=== PATIENT | male | born 1965 | race Caucasian/White ===

== ENCOUNTER 2017-02-21 12:28 | Inpatient (IN) | payer MEDICAID ==
[~2017-02-21] VITALS: Ht 182.9 cm; Wt 89.8 kg
--- NOTE | 2017-02-21 12:45 | NUR ---
IV ACCESS STARTED, BLOOD DRAWN FOR LABS. PT'S FRIENDS AT BS.
--- NOTE | 2017-02-21 12:52 | NUR ---
EKG IN PROGRESS
[2017-02-21 13:00] LABS: BASOPHILS # (AUTO) 0.1 /CMM (0.0-0.2); BASOPHILS % (AUTO) 0.8 % (0.0-2.0); EOSINOPHILS % (AUTO) 0.3 % (0.0-6.0); HEMATOCRIT 44 % (39-51); HEMOGLOBIN 14.6 g/dL (13.5-17.5); LYMPHOCYTES # (AUTO) 0.8 /CMM (0.8-4.8); LYMPHOCYTES % (AUTO) 10.4 % (20.0-44.0); MEAN CORPUSCULAR HEMOGLOBIN 32 PG (26.0-33.0); MEAN CORPUSCULAR HGB CONC 33 g/dl (31.0-36.0); MEAN CORPUSCULAR VOLUME 97 fL (80-96); MONOCYTES # (AUTO) 0.6 /CMM (0.1-1.30); MONOCYTES % (AUTO) 7.2 % (2.0-12.0); NEUTROPHILS # (AUTO) 6.3 /CMM (1.8-8.9); NEUTROPHILS % (AUTO) 81.3 % (43.0-81.0); PLATELET COUNT (AUTO) 184 /CMM (150-450); RDW COEFFICIENT OF VARIATION 13.7 (11.5-15.0); RED BLOOD CELL COUNT(AUTO) 4.53 MIL/uL (4.5-6.0); WHITE BLOOD COUNT (AUTO) 7.8 K/uL (4.3-11.0)
[2017-02-21] MEDS ORDERED: LORAZEPAM INJ 2 MG/ML VIAL IV ONE (13:00)
[2017-02-21] MEDS ORDERED: IV NS 0.9% 1,000 ML BAG IV ONE ×2 (13:00→15:00)
[2017-02-21] MEDS ORDERED: LORAZEPAM INJ 2 MG/ML VIAL ONE (13:04)
--- NOTE | 2017-02-21 13:04 | NUR ---
YOSSI RODRIGUEZ TO CT VIA SUZANNE
[2017-02-21 13:10] LABS: CALCIUM, SERUM 9.3 mg/dL (8.5-10.1); CARBON DIOXIDE 21 mmol/L (21-32); CHLORIDE 97 mmol/L (98-107); CREATININE 1.3 mg/dL (0.6-1.3); GLUCOSE 180 mg/dL (74-106); POTASSIUM 3.4 mmol/L (3.5-5.1); SODIUM SERUM 139 mmol/L (136-145); UREA NITROGEN, BLOOD 11 mg/dL (7-18)
[2017-02-21 13:16] LABS: ALBUMIN 3.8 g/dL (3.4-5.0); BILIRUBIN,DIRECT 1.4 mg/dL (0.0-0.2); BILIRUBIN,TOTAL 2.7 mg/dL (0.2-1.0)
[2017-02-21 13:19] LABS: TROPONIN I < 0.017 ng/mL (0.00-0.056)
[2017-02-21 13:23] LABS: D-DIMER 1.55 mg/L(FEU (0.17-0.50); INR 1.27 (0.87-1.13); PROTHROMBIN TIME 13.8 SECS (9.5-12.7)
[2017-02-21 13:26] LABS: INR 1.33 (0.87-1.13)
[2017-02-21 13:30] LABS: TOTAL PROTEIN, SERUM 9.3 g/dL (6.4-8.2)
[2017-02-21 13:41] LABS: BAND % (MANUAL) 3 % (0.0-5.0); LYMPHOCYTES % (MANUAL) 9 % (16-48); MONOCYTES % (MANUAL) 9 % (0-11.0); NEUTROPHILS % (MANUAL) 79 (42-76)
[2017-02-21] MEDS ORDERED: IV NS 0.9% 250 ML IV ONE (13:43)
[2017-02-21 13:52] LABS: ACETAMINOPHEN 0 ug/ml (10-30); ALCOHOL, BLOOD < 3 mg/dL (0-0); SALICYLATE < 0.2 mg/dL (2.8-20.0)
--- NOTE | 2017-02-21 14:14 | NUR ---
CALLED NURSING SUP. FOR TELE BED
--- NOTE | 2017-02-21 14:49 | NUR ---
KAUSHAL PAGED, FELISA GAMA FINANCIAL INSTITUTION PRESIDENT
[2017-02-21] MEDS ORDERED: CEFTRIAXONE 1GM BAG (ER ONLY) 1 GM/50 ML PIGGYBACK IV ONE (15:00)
[2017-02-21] MEDS ORDERED: LEVOFLOXACIN 750 MG /D5W 150ML PIGGYBACK IV ONE (15:00)
[2017-02-21] MEDS ORDERED: CEFTRIAXONE 1GM BAG (ER ONLY) 0 ML IV ONE (15:03)
[2017-02-21] MEDS ORDERED: LEVOFLOXACIN 750 MG /D5W 150ML 0 ML IV ONE (15:03)
[2017-02-21] MEDS ORDERED: LEVOFLOXACIN 750 MG /D5W 150ML 150 ML IV ONE (15:05)
[2017-02-21] MEDS ORDERED: CEFTRIAXONE 1GM BAG (ER ONLY) 50 ML IV ONE (15:05)
--- NOTE | 2017-02-21 15:31 | NUR ---
PANEL ON-CALL PAGED AGAIN
--- NOTE | 2017-02-21 15:55 | NUR ---
REPORT GIVEN [facility] [place] FOR TELE [phone]
[2017-02-21] MEDS ORDERED: SILVER SULFADIAZINE CREAM 25 GM TUBE ONE (16:03)
--- NOTE | 2017-02-21 16:10 | NUR ---
COLLEGE ADVISOR OPENING NOTES RECEIVED PT. FROM ER NURSE IN STABLE CONDITION. PT. IS A/O X4. PT. PRESENTS WITH MINOR TREMORS FROM POSSIBLY ALCOHOL WITHDRAWAL. PT. REPORTS HAVING A SYNCOPAL EPISODE BY A SHOPPING CENTER AFTER BINGE DRINKING THE DAY BEFORE. NO SOB OR SIGNS OF DISTRESS NOTED. BREATHING IS EVEN AND UNLABORED. TELE LEADS PLACED ON PT. PT. IS SINUS TACH ON MONITOR WITH A HR OF 118. BELONGINGS REVIEWED WITH PT. AND FORM SIGNED BY PT. IV PRESENT ON RIGHT AC 18 G PATENT AND INTACT. WILL BEGIN ADMISSION PROCESS AND AWAIT FURTHER ORDERS FROM JORDAN FELTON.
--- NOTE | 2017-02-21 16:18 | NUR ---
CALL FROM LAB. LACTIC ACID 5.0, RESULT RELAYED TO FLORENCIA RN, RN INCHARGE AND CARING FOR PATIENT
--- NOTE | 2017-02-21 16:25 | NUR ---
INTENSIVE CARE UNIT REGISTERED NURSE NOTES DR. GAMA NOTIFIED OF ELEVATED LACTIC ACID OF 5. PER DR. GAMA "ORDER A ONE TIME DOSE OF 1L NS BOLUS" WILL CARRY OUT ORDER AND CONTINUE TO CLOSELY MONITOR PT.
[2017-02-21] MEDS ORDERED: SILVER SULFADIAZINE CREAM 25 GM TUBE TP ONE (16:30)
[2017-02-21] MEDS ORDERED: TDAP [DIPH/PERTUSSIS/TET] 0.5 ML VIAL IM ONE ×2 (16:30→18:11)
[2017-02-21] MEDS ORDERED: IV NS 0.9% 1,000 ML IV ONE (17:30)
--- NOTE | 2017-02-21 18:53 | NUR ---
TERRITORY SUPERVISOR CLOSING NOTES PT. REMAINS IN STABLE CONDITION SINCE ADMISSION. PT. DENIES ANY PAIN AT THIS TIME. ALL ORDERS WERE CARRIED OUT ACCORDINGLY. ALL PT. NEEDS ANTICIPATED FOR AND MET. BED IN LOW LOCKED POSITION, SIDE RAILS UP X2, CALL LIGHT WITHIN REACH. WILL ENDORSE TO NIGHTSHIFT NURSE FOR YAS
[2017-02-21] MEDS ORDERED: ZOLPIDEM TARTRATE 5 MG TABLET PO PRN (19:00)
[2017-02-21] MEDS ORDERED: LORAZEPAM INJ 2 MG/ML VIAL IV PRN ×2 (19:00→21:00)
[2017-02-21] MEDS ORDERED: Thiamine 100 MG in IV D5W 50 ML IV ONE (19:00)
[2017-02-21] MEDS ORDERED: ONDANSETRON HCL/PF 4 MG/2 ML VIAL IVP PRN (19:00)
[2017-02-21] MEDS ORDERED: POTASSIUM CHLORIDE 20 MEQ TAB.PRT.SR PO ONE (19:30)
--- NOTE | 2017-02-21 19:30 | NUR ---
RN NOTES: RECEIVED AWAKE ON BED LYING COMFORTBLY, NO SOB NOTED, SURROUNDED BY RELATIVES, PER ENDORSEMENT PATIENT HAS A HIGH BP170/113,RN IS AWAITING FOR THE RETURN CALL OF DR. ROBERTO.PATIENT IS A/O X4,ABLE TO MAKE NEEDS KNOWN,ON TELE MONITORING RATE-103 SINUS TACHYCARDIA, KEPT ON CLOSE WATCH.CALL LIGHT WITHIN REACH.
--- NOTE | 2017-02-21 19:35 | NUR ---
RN NOTES: PER ENDORSEMENT OF AM-RN, DR. ROBERTO CALLED BACK AND ORDERED TO GIVE K-DUR FOR POTASSIUM REPLACEMENT RESULT K-3.4, AND GIVE ATIVAN Q2H PRN.TO BE GIVEN.
[2017-02-21 20:00] VITALS: BP 135/92
[2017-02-21] MEDS: LORAZEPAM INJ 2 MG/ML VIAL IV PRN ×2 (20:36→23:27)
--- NOTE | 2017-02-21 21:50 | NUR ---
RN NOTES: PATIENT TRIED TO GET UP FROM HIS BED TO USE URINAL, ACCIDENTALLY HIS IV CANNULA WAS PULLED OUT, MINIMAL BLEEDING NOTED, PRESSURE DRESSING APPLIED,EXPLAINED TO PATIENT AND HE AGREED FOR REINSERTION, NEW CANNULA INSERTED ON THE RIGHT HAND G#22.KEPT ON CLOSE WATCH.
--- NOTE | 2017-02-21 23:30 | NUR ---
RN NOTES: PATIENT LOOKS ANXIOUS, TREMORS NOTED AND HE IS SHAKING,HR-112, BP-145/96, ATIVAN 2MG PRN GIVEN,KEPTON CLOSE WATCH,IVF CONTINUED.
[2017-02-22] VITALS (66 sets, daily range): BP systolic 72–143; BP diastolic 53–93
--- NOTE | 2017-02-22 02:18 | NUR ---
RN NOTES: 2PM RECEIVED CALL FROM LAB(SPOKE WITH CHUY) TROPONIN IS HIGH,PAGE IRRIGATOR GRAVITY FLOW, AWAITING FOR THE RETURN CALL.PATIENT IS TAKING A NAP, NO CHECTS PAIN, NO SIGN OF RESPIRATORY DISTRESS NOTED, KEPT ON CLOSE WATCH.BP-143/93.
--- NOTE | 2017-02-22 02:56 | NUR ---
RN NOTES: MINT MACHINE OPERATOR(MAUREEN) ORDERED TO DO STAT EKG.RT NOTIFIED.PATIENT ASSISTED TO PEE IN THE URINAL, NO COMPLAINTS OF CHEST PAIN OR ANY DISCOMFORT,KEPT MONITORED.
[2017-02-22] MEDS: IV NS 0.9% 1,000 ML IV PRN ×2 (03:02→16:33)
--- NOTE | 2017-02-22 03:14 | NUR ---
RN NOTES: STAT EKG DONE BY RT, RESULT RELAYED TO HANDICAPPER HARNESS RACING,NO NEW ORDER, JUST DO BLOOD TEST IN THE MORNING.KEPT MONITORED.
[2017-02-22] MEDS: LORAZEPAM INJ 2 MG/ML VIAL IV PRN ×3 (03:59→14:33)
--- NOTE | 2017-02-22 04:11 | NUR ---
RN NOTES: PATIENT IS RESTLESS AND ANXIOUS,HE IS AWAKE AGAIN,TREMOR NOTED,SINUS TACHYCARDIA RATE-118, ATIVAN PRN GIVEN,SEIZURE AND FALL PRECAUTION OBSERVE,REMIND TO USE CALL LIGHT ALL THE TIME.
--- NOTE | 2017-02-22 05:00 | NUR ---
RN NOTES; ABLE TO REST AND SLEEP AT SHORT INTERVAL,KEPT ON CLOSE WATCH, ASSISTED WHEN HE PEE TO THE URINAL,FALL PRECAUTION OBSERVED.
--- NOTE | 2017-02-22 06:25 | NUR ---
RN NOTES: 0600-- PT WET THE BED, VOIDED, CLEANED THE PT, AND ASSITED TO SIT IN THE CHAIR, WHILE MANAGER EMPLOYEE BENEFITS AND RN CHANGING THE BED 0610---REINSERTED AN IV IV ACCESS GOT DISLODGE, 2CNA JL AND IMMACULATE AND PRIMARY RN IN THE ROOM 0620-- SUPPOSED TO GIVE ATIVAN FOR PT'S AGITATION AND RESTLESSNESS, MEDICATION ALREADY SCANNED AND PREPARED, BUT PRIOR TO ADMINISTERING THE MED PT C/O HE'S SHORT OF BREATH, SO RN DECIDED NOT TO GIVE THE SAID MEDICATION 0623--- NOTED PT TO HAVE SIGNS OF SOB, SINUS TACHY 140 0625--- PT UNABLE TO BREATH, NOTED TO BE CYANOTIC, VS TAKEN BUT UNABLE TO GET OXYGEN SATURATION, BP 150/58 98.0 IN 56 RR 7, PLACED ON NON REBREATHER MASK, BUSINESS DEVELOPMENT COORDINATOR WAS CALLED IMMEDIATELY 06--- PT ON SINUS TACH HR 141 BP 155/102 0630---NO PULSE NOTED, UNABLE TO BREATH, CODE BLUE WAS CALLED, CPR STARTED BAG THE PT, UNABLE TO GET VS 0635--BLOOD SUGAR WAS CHECKED REVEAL 124, 0640--CODE BLUE TEAM ARRIVED, RN SUP ARRIVED, STILL UNABLE TO GET VS, KELP OR [place] GATHERER DR. BELEN GUTIERREZ 0645--- UNABLE TO DETERMINE HR, CURRENTLY ON PEA RHYTHM, FIRST EPINEPHRINE 1:10,000 GIVEN BY TIRE SETTER ED THRU RIGHT FA IV ACCESS PERIPHERAL LINE 0647--- HR UNDETERMINED, RHYTHM UNABLE TO DETERMINE, UNABLE TO GET VS, SECOND EPINEPHRINE GIVEN BY TIRE SETTER ED THRU RFA IV ACCESS 0648-- ET TUBE INSERTION 0649--MD ORDERED STAT EKG DUE TO PT'S RHYTHM, MD ORDERED TO GIVE 3RD EPINEPHRINE, IV EPINEPHRINE GIVEN BY TIRE SETTER ED, ALSO RESULT OF EKG SHOWS POSSIBLE ANTEROSEPTAL INFARCT, SINUS TACHYCARDIA WITH PREMATURE ATRIAL COMPLEXES, LEFT AXIS DEVIATION 0655-- SENA TOWNSEND PT'S ATTENDING MD TALKING TO ER DR GLOVER, RELAYING PT'S CONDITION, PER KRISTIAN SHETTY TO START HEPARIN INFUSION IN ICU 0700--PT TRANSFERRED TO ICU VIA ACLS PROTOCOL, PRIMARY RN AND CHART EVEN PT'S BELONGING WAS BROUGHT TO ICU UPON TRANSFER, AT THE SAME TIME MEDICAL MANAGEMENT SPECIALIST ADELFO NOTIFIED FAMILY MEMBER, PT'S LEYLA JAMA REGARDING INCIDENT AND CURRENT CONDITION OF THE PT. 704-- ALREADY PLACED IN ROOM 261, HAVE TO WAIT FOR RN TO RECEIVE THE REPORT ENDORSEMENT GIVEN TO TIRE SETTER MOHAN AT 0750AM,ALSO ENDORSED REGARDING HEPARIN INFUSION PER MD, ALSO BELONGINGS ENDORSE TO RN, INCLUDING CP, CREDIT CARD AND EYEGLASS. 0930--CODE BLUE CRITIQUE FORM AND EKG RESULT COPY WAS PLACED ON PT'S CHART ALL ATTENDEES TO CODE TEAM ARE FOLLOW: DR BELEN CABRERA MD, TIRE SETTER ARNOLDO ALVAREZ, LEAD RT BRINDA MILIAN, RT EFREN SWENSON, ADE CASTELLON RT, ADELFO ROBERTO RT, SEBASTIAN LEUNG RT, ASHLI Hammond-EMT, BRADY BARRIOS NURSING SUP, MEDICAL MANAGEMENT SPECIALIST ADELFO MARTINEZ, PRIMARY RN MARA LAU, RN 3WEST PAUL MONTESINOS, RN TRUONG VINCENT, RN DAO TILLMAN, JONA EUCEDA, OSIEL PARIKH AND OSIEL ORR
--- NOTE | 2017-02-22 06:30 | NUR ---
RN NOTES REGARDING ATIVAN: ATIVAN NOT ADMINISTERED TO THE PT BECAUSE OF C/O SOB, HOWEVER MEDICATION ALREADY PREPARED IN THE SYRING[place], RELAYED TO CIRCULAR SAW OPERATOR ADELFO, MEDICATION WILL BE WASTED WITH ANOTHER RN WITNESS
[2017-02-22 06:48] LABS: BASOPHILS % (AUTO) 0.3 % (0.0-2.0); EOSINOPHILS % (AUTO) 0.3 % (0.0-6.0); HEMATOCRIT 43 % (39-51); HEMOGLOBIN 15.1 g/dL (13.5-17.5); LYMPHOCYTES # (AUTO) 0.9 /CMM (0.8-4.8); MEAN CORPUSCULAR HEMOGLOBIN 34 PG (26.0-33.0); MEAN CORPUSCULAR HGB CONC 35 g/dl (31.0-36.0); MEAN CORPUSCULAR VOLUME 97 fL (80-96); MONOCYTES # (AUTO) 0.7 /CMM (0.1-1.30); MONOCYTES % (AUTO) 8.4 % (2.0-12.0); NEUTROPHILS # (AUTO) 7.1 /CMM (1.8-8.9); PLATELET COUNT (AUTO) 152 /CMM (150-450); RDW COEFFICIENT OF VARIATION 14.1 (11.5-15.0); RED BLOOD CELL COUNT(AUTO) 4.45 MIL/uL (4.5-6.0); WHITE BLOOD COUNT (AUTO) 8.8 K/uL (4.3-11.0)
[2017-02-22 07:08] LABS: ALBUMIN 3.6 g/dL (3.4-5.0); BILIRUBIN,TOTAL 2.4 mg/dL (0.2-1.0); CREATININE 0.9 mg/dL (0.6-1.3); POTASSIUM 3.4 mmol/L (3.5-5.1); TOTAL PROTEIN, SERUM 9.3 g/dL (6.4-8.2)
[2017-02-22 07:17] LABS: THYROID STIMULATING HORMONE 3.161 uIU/mL (0.358-3.74)
[2017-02-22] MEDS ORDERED: PANTOPRAZOLE 40 MG TABLET.DR PO SCH ×2 (07:30→10:19)
--- NOTE | 2017-02-22 07:30 | NUR ---
PT RECEIVED ORALLY INTUBATED WITH 7.5 ET-TUBE SECURED AT 24CM. B/S EQUAL AT THIS TIME. SETTINGS ORDERED. ALARM SET AND AUDIBLE. ABG DONE. SMALL PALE YELLOW SPUTUM. AMBUBAG AT HEAD OF BED
--- NOTE | 2017-02-22 07:40 | NUR ---
ICU/RN PT TRANSFER FROM TELE UNIT.S/P CODE BLUE.PT IS INTUBATED. DIPRIVAN STARTED ORDERED.NEW IV ON LEFT IJ KANNAN 18 STARTED.F/C INSERTED ORDERED.PT HAS MINIMAL AMOUNT OF ANDRE URINE.ABDOMEN DISTENDED,BOWEL SOUNDS PRESENTS.OG TUBE INSERTED.HR SINUS TACHYCARDIA 166 BPM.SAT O2-95% ON 100% FIO2.REACTIVE ON PAIN STIMULATION.GAG AND COUGH REFLEXES PRESENT.T-101.TROPONIN LEVEL-3.378.
[2017-02-22 07:49] LABS: MAGNESIUM 1.2 mg/dL (1.8-2.4)
[2017-02-22] MEDS: Magnesium 1GM/D5W 100ML PREMIX 100 ML IV SCH ×3 (08:29→11:02)
[2017-02-22] MEDS: MULTIVITAMINS,THERAGRAN 1 UDTAB TABLET PO SCH (08:30)
[2017-02-22] MEDS ORDERED: ASPIRIN 325 MG TABLET PO ONE (08:30)
[2017-02-22] MEDS: FOLIC ACID 1 MG TABLET PO SCH (08:30)
[2017-02-22] MEDS ORDERED: IV NS 0.9% 500 ML IV ONE (08:30)
[2017-02-22] MEDS: PROPOFOL 100 ML IV PRN ×5 (08:31→22:08)
[2017-02-22] MEDS: ACETAMINOPHEN 325 MG TABLET PO PRN ×2 (08:42→16:33)
--- NOTE | 2017-02-22 08:45 | NUR ---
ICU/RN T-101.TYLENOL 2 TAB VIA OG TUBE GIVEN ORDERED.
[2017-02-22] MEDS ORDERED: THIAMINE HCL 100 MG TABLET PO SCH (09:00)
[2017-02-22] MEDS ORDERED: HEPARIN SODIUM, PORCINE 5000 UNITS/1 ML VIAL IV ONE (10:00)
[2017-02-22] MEDS ORDERED: phenytoin SODIUM IV 1,500 MG in IV NS 0.9% 100 ML IV STA (10:09)
--- NOTE | 2017-02-22 10:30 | NUR ---
ICU/RN HEPARIN DRIP AT 1200 UNITS STARTED ORDERED.PICC LINE ON THE RIGHT UPPER ARM INSERTED ORDERED.LABS REVIEW.MG-1.2 4GM MGSO4 IV ORDERED,K-3.4 40 MEQ KCL VIA OG TUBE GIVEN.1500 ML OF BOLUS NS GIVEN ORDERED.CONTINUE MONITORING
[2017-02-22] MEDS: HEPARIN INFUSION/D5W 500 ML IV PRN (10:31)
[2017-02-22] MEDS ORDERED: POTASSIUM CHLORIDE 20 MEQ POWDER PACKET NG ONE (11:00)
[2017-02-22] MEDS ORDERED: IV NS 0.9% 1,000 ML BAG IV ONE (11:00)
[2017-02-22] MEDS: PHENYLEPHRINE 80 MG in IV D5W 250 ML IV PRN ×3 (11:32→22:25)
[2017-02-22] MEDS: PIPERACILLIN /TAZOBACTAM 3.375 G in IV D5W 50 ML IV SCH ×2 (12:13→17:49)
[2017-02-22] MEDS: Z GUARD REMEDY 2 OZ OINT TP PRN ×2 (12:29→16:33)
[2017-02-22 12:36] LABS: ABG BASE EXCESS -4.6 mmol/L; ABG OXYGEN SATURATION 84.6 % (92.0-98.5); ABG PCO2 28.6 mmHg (35.0-45.0); ABG PH 7.427 (7.350-7.450); ABG PO2 50.9 mmHg (75.0-100.0); AaDO2 633.5 mmHg; COHb 0.3 % (0.5-1.5); MetHb 0.6 % (0.0-1.5); O2Hb 83.8 % (94.0-97.0); PEEP,BG 8 cm H2O; SITE, ABG Right Radial; VT, ABG 600 mL
[2017-02-22] MEDS: PHENYTOIN SODIUM IV 50 MG/ML VIAL IV SCH ×2 (13:26→20:08)
[2017-02-22] MEDS ORDERED: Magnesium 1GM/D5W 100ML PREMIX 100 ML IV SCH (14:00)
--- NOTE | 2017-02-22 14:35 | NUR ---
ICU/RN PT IS DIAPHORETIC RR-33,HR-145 BPM.ATIVAN 2 MG IV GIVEN ORDERED.
--- NOTE | 2017-02-22 16:35 | NUR ---
ICU/RN PM CARE [PROVIDED.PT PLACED ON [facility] MATRASS.T-100.9.TYLENOL 2 TAB VOA OG TUBE GIVEN ORDERED.COOLING BLANKET ON.COOLING MEASURES PROVIDED.SUCTION PROVIDED.PT HAS MINIMAL URINE OUTPUT.MD NOTIFIED.FAMILY AT BEDSIDE.
[2017-02-22 17:35] LABS: CREATININE 1.7 mg/dL (0.6-1.3); MAGNESIUM 2.3 mg/dL (1.8-2.4); POTASSIUM 3.1 mmol/L (3.5-5.1)
--- NOTE | 2017-02-22 17:37 | NUR ---
ICU/RN PT IS SEDATED ON DIPRIVAN AT 45 MCG,ON NORSYNEPHRINE DRIP ,TEMPERATURE OVER 100 ,COOLING BLANKET ON , HIGH PEEP-12 ON THE VENT .PT IS FIO2-100%,SAT O2-91% .
--- NOTE | 2017-02-22 17:47 | NUR ---
ICU/RN CRITICAL BS -415 FROM LAB ,TROPONIN -4.563.ACCU CHECK FROM THE FINGER DONE.BS-128.CHARGE NURSE NOTIFIED.LAB NOTIFIED.
[2017-02-22] MEDS ORDERED: NOREPINEPHRINE 16 MG in IV D5W 500 ML IV PRN (18:30)
[2017-02-22 18:35] LABS: CALCIUM, SERUM 8.2 mg/dL (8.5-10.1); CREATININE 1.5 mg/dL (0.6-1.3); MAGNESIUM 2.4 mg/dL (1.8-2.4); PHOSPHORUS 4.2 mg/dL (2.5-4.9); POTASSIUM 3.6 mmol/L (3.5-5.1); TOTAL PROTEIN, SERUM 8.3 g/dL (6.4-8.2)
--- NOTE | 2017-02-22 19:00 | NUR ---
SPEECH LANGUAGE PATHOLOGIST TRAVEL: RECEIVED ORALLY INTUBATED PT. WT 100% FI02 AT 02 SAT BASELINE IN THE HIGH 80s PER DAY SHIFT REPORT. SEDATED ON PROPOFOL AT 45MCG/KG/MIN AND WITHDRAWS TO LOCALIZED PAIN. SR ON SCRAP PICKER. TEMP=99.5, COOLING BLANKET IN PLACE. PTT=62, WILL CONTINUE SAME HEPARIN DRIP AT 1200 U/HR AND RECHECK PTT IN AM PER PROTOCOL. ON NS AT 75ML/HR, , NEOSYNEPHRINE DRIP AT 200MCG/MIN. F/C PATENT AND INTACT DRAINING ANDRE COLORED URINE. SAFETY PRECAUTION NOTED. WILL CONTINUE TO MONITOR.
[2017-02-23] VITALS (103 sets, daily range): BP systolic 85–135; BP diastolic 36–94
[2017-02-23] MEDS: PIPERACILLIN /TAZOBACTAM 3.375 G in IV D5W 50 ML IV SCH ×5 (00:25→23:30)
[2017-02-23] MEDS: IV NS 0.9% 1,000 ML IV PRN (00:26)
[2017-02-23] MEDS: LORAZEPAM INJ 2 MG/ML VIAL IV PRN ×3 (01:01→21:30)
--- NOTE | 2017-02-23 01:15 | NUR ---
CIRCUS LABORER: PT. 02 SAT IN THE 60s FOR PAST 15 MINUTES. HR ELEVATED IN 90s TO LOW 100s WELL RESPIRATION RATE. STILL AT 100% 02. HEAD LOWERED AND REPOSITIONED FOR COMFORT. ATIVAN GIVEN. WILL CONTINUE TO MONITOR.
--- NOTE | 2017-02-23 01:24 | NUR ---
PROMOTIONS MANAGER: 02 SAT BACK IN THE HIGH 70s to 80s AT THIS TIME. WILL CONTINUE TO MONITOR.
[2017-02-23] MEDS: PROPOFOL 100 ML IV PRN ×5 (01:36→23:18)
--- NOTE | 2017-02-23 01:45 | NUR ---
DOWELER: REASSESSMENT FOR ATIVAN WT GOOD EFFECT M/B VS BACK TO PT's BASELINE. HR=77, O2 SAT=91%, HR 21, UF=513/85. STILL ON DIPRIVAN AT 45MCG/KG/MIN, MITCH. DRIP AT 220MCG/MIN AND NS AT 75ML/HR WT URINE OUTPUT IMPROVING COMPARED FROM DAY SHIFT. WILL CONTINUE TO MONITOR.
[2017-02-23 05:05] LABS: BASOPHILS % (AUTO) 0.4 % (0.0-2.0); EOSINOPHILS # (AUTO) 0.1 /CMM (0.0-0.7); EOSINOPHILS % (AUTO) 0.7 % (0.0-6.0); HEMATOCRIT 42 % (39-51); HEMOGLOBIN 14.2 g/dL (13.5-17.5); LYMPHOCYTES # (AUTO) 1.5 /CMM (0.8-4.8); LYMPHOCYTES % (AUTO) 12.9 % (20.0-44.0); MEAN CORPUSCULAR HEMOGLOBIN 33 PG (26.0-33.0); MEAN CORPUSCULAR HGB CONC 34 g/dl (31.0-36.0); MEAN CORPUSCULAR VOLUME 99 fL (80-96); MONOCYTES # (AUTO) 1.1 /CMM (0.1-1.30); MONOCYTES % (AUTO) 9.8 % (2.0-12.0); NEUTROPHILS # (AUTO) 8.8 /CMM (1.8-8.9); NEUTROPHILS % (AUTO) 76.2 % (43.0-81.0); PLATELET COUNT (AUTO) 208 /CMM (150-450); RDW COEFFICIENT OF VARIATION 14.8 (11.5-15.0); RED BLOOD CELL COUNT(AUTO) 4.27 MIL/uL (4.5-6.0); WHITE BLOOD COUNT (AUTO) 11.6 K/uL (4.3-11.0)
[2017-02-23] MEDS: PHENYTOIN SODIUM IV 50 MG/ML VIAL IV SCH ×3 (05:15→20:56)
[2017-02-23] MEDS: PHENYLEPHRINE 80 MG in IV D5W 250 ML IV PRN ×2 (05:15→18:59)
[2017-02-23 05:27] LABS: ALBUMIN 2.6 g/dL (3.4-5.0); BILIRUBIN,TOTAL 1.9 mg/dL (0.2-1.0); CALCIUM, SERUM 7.9 mg/dL (8.5-10.1); CREATININE 1.4 mg/dL (0.6-1.3); MAGNESIUM 2.2 mg/dL (1.8-2.4); PHOSPHORUS 4.2 mg/dL (2.5-4.9); POTASSIUM 3.2 mmol/L (3.5-5.1); TOTAL PROTEIN, SERUM 7.9 g/dL (6.4-8.2)
[2017-02-23] MEDS: HEPARIN INFUSION/D5W 500 ML IV PRN (06:48)
--- NOTE | 2017-02-23 06:50 | NUR ---
METAL FURNITURE POLISHER: O2 SAT IN THE LOW 80s WT CURRENT VENT SETTINGS. AFEBRILE AT THIS TIME. CONTINUE HEPARIN DRIP AT 1200U/HR FOR PTT=49. WILL ENDORSE TO DAY SHIFT FOR CONTINUITY OF CARE.
--- NOTE | 2017-02-23 07:35 | NUR ---
BOLT CUTTER RECEIVED PATIENT FROM THE PREVIOUS SHIFT. PATIENT IS IN BED. RESTING COMFORTABLY AT THIS TIME. AFEBRILE. SINUS RHYTHM ON MONITOR. ON PRESSORS FOR BP SUPPORT. SEDATED ON DIPRIVAN. HEPARIN GTT RUNNING. JASSO DRAINING URINE TO GRAVITY. GENTLY TURNED AND REPOSITIONED FOR COMFORT AND WOUND PREVENTION. UNABLE TO ASSESS THE SACRAL SKIN AND BACK SKIN CONDITIONS BECAUSE PATIENT CANNOT BE TURNED FULLY DUE TO HEMODYNAMIC INSTABILITY. O2 SATURATION AT 85% AT THIS TIME. WILL CONTINUE TO MONITOR AND PROVIDE CARE.
--- NOTE | 2017-02-23 07:38 | NUR ---
RT PATIENT REC'D ORALLY INTUBATED ON [facility] VENT WITH SETTINGS SET BY MD RAMSEY MAO. VENT ALARMS CHECKED + AUDIBLE. VENT PLUGGED INTO RED OUTLET. PATIENT SUCTIONED WITH SMALL AMT OF PALE YELLOW SEMITHICK SECRETIONS. JEVON HERRERA B/S HEARD. TAMMY BAG AT HOB. Addendum: 02/23/17 at 0852 by PANCHO WEINSTEIN RT Amended: Links added.
[2017-02-23] MEDS ORDERED: EPINEPHRINE (1:10,000) SYRINGE 1 MG/10 ML DISP.SYRIN IVP ONE ×2 (08:10→12:47)
[2017-02-23 08:32] LABS: ABG BASE EXCESS -1.4 mmol/L; ABG OXYGEN SATURATION 88.2 % (92.0-98.5); ABG PCO2 32.1 mmHg (35.0-45.0); ABG PH 7.447 (7.350-7.450); ABG PO2 55.4 mmHg (75.0-100.0); AaDO2 625.5 mmHg; COHb 0.1 % (0.5-1.5); MetHb 0.6 % (0.0-1.5); O2Hb 87.6 % (94.0-97.0); PEEP,BG 12 cm H2O; SITE, ABG Right Radial; VT, ABG 600 mL
[2017-02-23] MEDS: MULTIVITAMINS,THERAGRAN 1 UDTAB TABLET PO SCH (09:36)
[2017-02-23] MEDS: ASPIRIN 325 MG TABLET PO SCH (09:36)
[2017-02-23] MEDS: FOLIC ACID 1 MG TABLET PO SCH (09:36)
[2017-02-23] MEDS: FAMOTIDINE/PF INJ 20 MG/2 ML VIAL IV SCH ×2 (09:36→20:56)
--- NOTE | 2017-02-23 09:40 | NUR ---
PROMOTION WRITER DURING SEDATION VACATION, RN DROPPED THE DIPRIVAN GTT TO 20 MCG/KG/MIN GRADUALLY FROM 50 MCG. AFTER ABOUT 25 MIN PATIENT NOTED TO TACHYEPNIC WITH BREATHING IN LARGER TIDAL VOLUMES. NASAL FLARING AND SOME FACIAL GRIMACING NOTED. NO PURPOSEFUL MOVEMENT NOTED. UNABLE TO FOLLOW COMMANDS AT THIS TIME. PATIENT WAS FULLY RESEATED FOR SAFETY.
[2017-02-23] MEDS: POTASSIUM CL. PREMIX PERIPHER. 50 ML IV SCH ×4 (10:36→14:39)
[2017-02-23] MEDS: ACETAMINOPHEN 325 MG TABLET PO PRN ×2 (11:47→22:22)
[2017-02-23] MEDS ORDERED: FEE PK DOSING 1 MIN EA MC ONE (11:47)
[2017-02-23] MEDS: VANCOMYCIN 1 GM in IV D5W 250 ML IV SCH (12:48)
--- NOTE | 2017-02-23 14:02 | NUR ---
CRYSTALLOGRAPHY TEACHER PATIENT'S TEMP 101.1. MANAGER OF HOSPITAL MADE AWARE. PER MD, NO COOLING BLANKET INDICATED AT THIS TIME. TYLENOL GIVEN. COOLING MEASURES STARTED.
[2017-02-23] MEDS ORDERED: IV NS 0.9% 1,000 ML IV PRN (15:20)
[2017-02-23] MEDS ORDERED: FUROSEMIDE 40 MG/4 ML VIAL IV ONE (15:30)
[2017-02-23] MEDS ORDERED: BUMETANIDE INJ 6 MG in IV NS 0.9% 36 ML IV ONE (20:00)
[2017-02-23] MEDS ORDERED: POTASSIUM CHLORIDE 20 MEQ POWDER PACKET GT ONE (20:00)
[2017-02-23] MEDS ORDERED: POTASSIUM CHLORIDE 20 MEQ POWDER PACKET ONE (21:16)
[2017-02-23] MEDS ORDERED: BUMETANIDE INJ 0.25 MG/ML VIAL ONE (21:46)
--- NOTE | 2017-02-23 21:51 | NUR ---
PT RECEIVED INTUBATED ON VENT. FAMILY AT BEDSIDE. NO RESP DISTRESS. TOLERATING VENT SETTINGS. SX'D FOR MOD AMT OF THICK/THIN TINGED SECRETIONS. VENT ALARMS SET AND AUDIBLE. ETT SECURED, CUFF SEED SPECIALIST. AMBU BAG [facility]. VENT PLUGGED INTO RED OUTLET. WILL CONTINUE TO MONITOR. Addendum: 02/23/17 at 2153 by ROMEO BOSS RT Amended: Links added.
[2017-02-24] VITALS (80 sets, daily range): BP systolic 87–139; BP diastolic 57–105
--- NOTE | 2017-02-24 | NUR ---
SPRAYER AUTOMATIC SPRAY MACHINE - REC'D PT. INTUBATED, SEDATED ON DIPRIVAN GTT. AT 45 MCG/KG/MIN. A SEDATION VACATION WAS DONE AT 21:00 WITH AT BS. PT. STARTED BUCKING THE VENT APPROX. A MIN. AFTER GTT. WAS SHUT OFF. DIPRIVAN WAS RESET AT 50 MCG/KG/MIN. REPOSITIONED DUE TO O2 SATS IN THE 70-80'S. PT. DESATS ON VENT W/FIO2 AT 100%. PT. IS ORALLY & TRACHEAL SX'D MAINOR - QUENTLY W/HEMOPTYSIS NOTED. THICK YELLOW SX'S NOTED ALSO. PT. HAS NEOSYNEPHRINE GTT. AT 150 MCG/MIN., DIPRIVAN, NS AT TKO, HEPARIN GTT. AT 1200 UNITS/HR & MULTIPLE IVPB'S. FELISA THORNTONCY DNP ORDERED BUMEX GTT. & KLOR/CON AT START OF SHIFT. OF NOW, PT. HAS URINATED OVER A LITER VIA JASSO CATH. OGT CLAMPED W/GOOD PLACEMENT. CVP IS HIGH AT 14-20. LINE IS ZEROED & CALIBRATED Q 4HRS/PRN. +ASCITES/VERY LARGE ABD. SACRAL BLISTERS/REDNESS. COOLING MEASURES PROVIDED DUE TO CONSTANT FEVER. RECTAL TEMP PROBE INTACT. GIVEN SYMPATHY & ALL QUESTIONS ANSWERED TO BEST OF ABILITY. CONT. POC.
[2017-02-24] MEDS: VANCOMYCIN 1 GM in IV D5W 250 ML IV SCH ×3 (01:09→23:43)
[2017-02-24] MEDS: PROPOFOL 100 ML IV PRN ×4 (02:32→21:31)
[2017-02-24] MEDS: PHENYLEPHRINE 80 MG in IV D5W 250 ML IV PRN ×3 (02:37→20:27)
[2017-02-24] MEDS: PHENYTOIN SODIUM IV 50 MG/ML VIAL IV SCH ×3 (04:35→20:30)
[2017-02-24 04:43] LABS: BASOPHILS % (AUTO) 0.2 % (0.0-2.0); EOSINOPHILS # (AUTO) 0.2 /CMM (0.0-0.7); EOSINOPHILS % (AUTO) 2.1 % (0.0-6.0); HEMATOCRIT 43 % (39-51); HEMOGLOBIN 14.5 g/dL (13.5-17.5); LYMPHOCYTES # (AUTO) 1.5 /CMM (0.8-4.8); LYMPHOCYTES % (AUTO) 15.5 % (20.0-44.0); MEAN CORPUSCULAR HEMOGLOBIN 33 PG (26.0-33.0); MEAN CORPUSCULAR HGB CONC 34 g/dl (31.0-36.0); MEAN CORPUSCULAR VOLUME 99 fL (80-96); MONOCYTES # (AUTO) 1.1 /CMM (0.1-1.30); MONOCYTES % (AUTO) 11.1 % (2.0-12.0); NEUTROPHILS # (AUTO) 7.1 /CMM (1.8-8.9); NEUTROPHILS % (AUTO) 71.1 % (43.0-81.0); PLATELET COUNT (AUTO) 203 /CMM (150-450); RDW COEFFICIENT OF VARIATION 15.1 (11.5-15.0); RED BLOOD CELL COUNT(AUTO) 4.36 MIL/uL (4.5-6.0)
[2017-02-24 04:54] LABS: CALCIUM, SERUM 7.7 mg/dL (8.5-10.1); CREATININE 1.3 mg/dL (0.6-1.3)
[2017-02-24 05:04] LABS: MAGNESIUM 1.4 mg/dL (1.8-2.4); PHOSPHORUS 3.6 mg/dL (2.5-4.9); POTASSIUM 3.5 mmol/L (3.5-5.1)
[2017-02-24] MEDS: HEPARIN INFUSION/D5W 500 ML IV PRN ×2 (05:06→17:31)
[2017-02-24] MEDS: PIPERACILLIN /TAZOBACTAM 3.375 G in IV D5W 50 ML IV SCH ×4 (05:07→23:05)
--- NOTE | 2017-02-24 07:30 | NUR ---
TYPEWRITER ASSEMBLY AND PARTS INSPECTOR RECEIVED PATIENT FROM THE PREVIOUS SHIFT. PATIENT IS IN BED. RESTING COMFORTABLY. NO ACUTE DISTRESS NOTED. EVEN AND NON LABORED BREATHING PATTERN. ORAL SUCTION AND ETT SUCTION PROVIDED. ORALLY INTUBATED. VENT SETTINGS REVIEWED AND VERIFIED. TURNED AND REPOSITIONED FOR COMFORT AND WOUND PREVENTION. WILL CONTINUE TO MONITOR AND PROVIDE CARE.
[2017-02-24] MEDS: ASPIRIN 325 MG TABLET PO SCH (09:00)
[2017-02-24] MEDS: MULTIVITAMINS,THERAGRAN 1 UDTAB TABLET PO SCH (09:00)
[2017-02-24] MEDS: FOLIC ACID 1 MG TABLET PO SCH (09:01)
[2017-02-24] MEDS: FAMOTIDINE/PF INJ 20 MG/2 ML VIAL IV SCH ×2 (09:01→20:30)
--- NOTE | 2017-02-24 09:40 | NUR ---
WOUND CARE CONSULT PATIENT SEEN AND SKIN INTEGRITY ASSESSMENT DONE. SEE NATIONAL ACCOUNT MANAGER ASSESSMENT IN PCS FOR ALL RECOMMENDATIONS. PATIENT NOTED TO HAVE MULTIPLE CO-MORBIDITIES AT THIS TIME AND AT THE TIME OF THIS SKIN BREAKDOWN. FURTHER SKIN BREAKDOWN MAY BE UNAVOIDABLE. PATIENT CONTINUES ON PRESSORS FOR BP SUPPORT, PATIENT WITH MULTI ORGAN FAILURE AND CITLALI AT 11. CONTINUE ALL SKIN MANAGMENT AND PREVENTION MEASURES PER CURRENT PLAN OF CARE. ALL DISCUSSED WITH NURSING STAFF AT THE BEDSIDE. Addendum: 02/24/17 at 0943 by LEONARD MONTIEL WNDNU Amended: Links added.
[2017-02-24] MEDS ORDERED: HYDROGEL DRESSING 90 GM TUBE TP PRN (10:00)
[2017-02-24] MEDS: HYDROGEL DRESSING 90 GM TUBE TP SCH (10:03)
[2017-02-24 10:51] LABS: ABG BASE EXCESS 4.2 mmol/L; ABG OXYGEN SATURATION 96.9 % (92.0-98.5); ABG PCO2 29.9 mmHg (35.0-45.0); ABG PH 7.552 (7.350-7.450); ABG PO2 89.2 mmHg (75.0-100.0); AaDO2 593.9 mmHg; COHb 0.1 % (0.5-1.5); MetHb 0.4 % (0.0-1.5); O2Hb 96.4 % (94.0-97.0); PEEP,BG 12 cm H2O; SITE, ABG Right Femoral; VT, ABG 600 mL
[2017-02-24] MEDS: Magnesium 1GM/D5W 100ML PREMIX 100 ML IV SCH ×4 (10:51→15:26)
[2017-02-24] MEDS ORDERED: POTASSIUM CHLORIDE 20 MEQ POWDER PACKET GT ONE ×2 (16:00→17:00)
[2017-02-24] MEDS: LACTOBACILLUS RHAMNOSUS GG 1 EACH CAP.SPRINK PO SCH (17:29)
[2017-02-24] MEDS: BUMETANIDE INJ 0.25 MG/ML VIAL IV SCH ×2 (17:29→23:05)
--- NOTE | 2017-02-24 19:00 | NUR ---
RN INITIAL NOTES RECEIVED PT SEDATED ON BED WITH DIPRIVAN @ 50MCG/KG/MIN. ON VENT, AC 18, TV 550, 65% FIO2, PEEP 12, ETT 02/10@LIP, SATURATING WELL, NO S/S OF RESP DISTRESS. CURRENTLY SR ON THE MONITOR, HR 70-80'S, ON MITCH DRIP @ 130MCG/MIN. CVP READING @ 9. OGT INTACT AND CLAMPED. JASSO CATH INTACT. LEFT EJ 18G, RIGHT WRIST 22G, AND RIGHT UPPER ARM PICC FLUSHED AND PATENT, NO S/S OF INFILTRATION/INFECTION, DRESSINGS CDI. BED LOW AND LOCKED, SIDERAILS UP. WILL MONITOR CLOSELY
[2017-02-24] MEDS: ACETAMINOPHEN 325 MG TABLET PO PRN (20:30)
[2017-02-25] VITALS (99 sets, daily range): BP systolic 53–130; BP diastolic 36–97
[2017-02-25] MEDS: PROPOFOL 100 ML IV PRN ×6 (00:42→23:01)
[2017-02-25 04:45] LABS: BASOPHILS % (AUTO) 0.2 % (0.0-2.0); EOSINOPHILS # (AUTO) 0.2 /CMM (0.0-0.7); EOSINOPHILS % (AUTO) 1.9 % (0.0-6.0); HEMATOCRIT 40 % (39-51); HEMOGLOBIN 13.7 g/dL (13.5-17.5); LYMPHOCYTES # (AUTO) 1.2 /CMM (0.8-4.8); LYMPHOCYTES % (AUTO) 13.4 % (20.0-44.0); MEAN CORPUSCULAR HEMOGLOBIN 34 PG (26.0-33.0); MEAN CORPUSCULAR HGB CONC 34 g/dl (31.0-36.0); MEAN CORPUSCULAR VOLUME 98 fL (80-96); MONOCYTES # (AUTO) 1.3 /CMM (0.1-1.30); MONOCYTES % (AUTO) 15.2 % (2.0-12.0); NEUTROPHILS % (AUTO) 69.3 % (43.0-81.0); PLATELET COUNT (AUTO) 193 /CMM (150-450); RDW COEFFICIENT OF VARIATION 15.2 (11.5-15.0); RED BLOOD CELL COUNT(AUTO) 4.09 MIL/uL (4.5-6.0); WHITE BLOOD COUNT (AUTO) 8.6 K/uL (4.3-11.0)
[2017-02-25 05:03] LABS: CALCIUM, SERUM 7.4 mg/dL (8.5-10.1); CREATININE 1.2 mg/dL (0.6-1.3); MAGNESIUM 1.5 mg/dL (1.8-2.4); PHOSPHORUS 3.5 mg/dL (2.5-4.9); POTASSIUM 3.1 mmol/L (3.5-5.1)
[2017-02-25] MEDS: PIPERACILLIN /TAZOBACTAM 3.375 G in IV D5W 50 ML IV SCH ×4 (05:06→23:10)
[2017-02-25] MEDS: PHENYTOIN SODIUM IV 50 MG/ML VIAL IV SCH ×3 (05:06→20:13)
[2017-02-25 05:44] LABS: BAND % (MANUAL) 2 % (0.0-5.0); EOSINOPHILS % (MANUAL) 2 % (0-4); LYMPHOCYTES % (MANUAL) 18 % (16-48); METAMYELOCYTES % 1 % (0-0); MONOCYTES % (MANUAL) 14 % (0-11.0); MYELOCYTES % 1 % (0-0); NEUTROPHILS % (MANUAL) 62 (42-76)
--- NOTE | 2017-02-25 06:30 | NUR ---
RN CLOSING NOTES PT REMAINS STABLE OF THE MOMENT. ALL DUE MEDS GIVEN, AM CARE PROVIDED. WILL ENDORSE YAS TO AM RN
--- NOTE | 2017-02-25 07:58 | NUR ---
RT PT RECEIVED ORALLY INTUBATED WITH A 7.0 ETT SECURED AT 23CM AT THE LIP LINE ON THE VENT. VENT ALARMS ARE SET AND AUDIBLE WITH BVM BY BEDSIDE. OB GYN PHYSICIAN ASSISTANT CUFF PRESSURE NOTED. VENT IS PLUGGED INTO RED OUTLET. NO RESPIRATORY DISTRESS NOTED AT THIS TIME, WILL CONTINUE TO MONITOR. Addendum: 02/25/17 at 1802 by SEBASTIAN LEUNG RT Amended: Links added.
--- NOTE | 2017-02-25 08:30 | NUR ---
SEDATION VACATION. PT OPENS EYES FOUSES, AND TRACKS. ABLE TO FOLLOW SEMPLE COMMANDS: SQUEEZE MY HAND AND LET GO.
[2017-02-25 08:44] LABS: ABG OXYGEN SATURATION 93.4 % (92.0-98.5); ABG PCO2 36.4 mmHg (35.0-45.0); ABG PH 7.505 (7.350-7.450); AaDO2 355.9 mmHg; COHb 0.4 % (0.5-1.5); MetHb 0.5 % (0.0-1.5); O2Hb 92.6 % (94.0-97.0); PEEP,BG 12 cm H2O; SITE, ABG Right Radial; VENT MODE, BG AC 18/28; VT, ABG 550 mL
[2017-02-25] MEDS: ASPIRIN 325 MG TABLET PO SCH (09:58)
[2017-02-25] MEDS: LACTOBACILLUS RHAMNOSUS GG 1 EACH CAP.SPRINK PO SCH ×2 (09:58→18:39)
[2017-02-25] MEDS: MULTIVITAMINS,THERAGRAN 1 UDTAB TABLET PO SCH (09:58)
[2017-02-25] MEDS: FAMOTIDINE/PF INJ 20 MG/2 ML VIAL IV SCH ×2 (09:58→20:13)
[2017-02-25] MEDS: FOLIC ACID 1 MG TABLET PO SCH (09:58)
[2017-02-25] MEDS: HYDROGEL DRESSING 90 GM TUBE TP SCH (09:59)
--- NOTE | 2017-02-25 10:00 | NUR ---
AT BEDSIDE. UPDATED ON PROGRESS.
[2017-02-25] MEDS: PHENYLEPHRINE 80 MG in IV D5W 250 ML IV PRN ×2 (11:18→18:46)
[2017-02-25] MEDS: POTASSIUM CL. PREMIX PERIPHER. 50 ML IV SCH ×4 (11:34→15:01)
[2017-02-25] MEDS: Magnesium 1GM/D5W 100ML PREMIX 100 ML IV SCH ×2 (11:34→12:06)
[2017-02-25] MEDS: HEPARIN INFUSION/D5W 500 ML IV PRN (12:09)
[2017-02-25] MEDS: VANCOMYCIN 1 GM in IV D5W 250 ML IV SCH (12:35)
--- NOTE | 2017-02-25 13:00 | NUR ---
DR MONTGOMERY HERE TO SEE PT. UPDATED ON PROGRESS. HEPARIN GTT D/C ORDERED BY DR MONTGOMERY.
--- NOTE | 2017-02-25 16:00 | NUR ---
K AND MAG REPLACEMENT COMPLETED. PT ASSISTED WITH FULL BED-BATH, SKIN CARE.
--- NOTE | 2017-02-25 19:30 | NUR ---
RN INITIAL NOTES RECEIVED PT SEDATED ON BED WITH DIPRIVAN @ 40MCG/KG/MIN. ON VENT, AC 18, TV 550, 65% FIO2, PEEP 12, ETT 02/10@LIP, SATURATING WELL, NO S/S OF RESP DISTRESS. CURRENTLY SR ON THE MONITOR, HR 90'S, ON MITCH DRIP @ 50MCG/MIN. CVP READING @ 7. OGT INTACT AND CLAMPED. JASSO CATH INTACT. LEFT EJ 18G, RIGHT WRIST 22G, AND RIGHT UPPER ARM PICC FLUSHED AND PATENT, NO S/S OF INFILTRATION/INFECTION, DRESSINGS CDI. BED LOW AND LOCKED, SIDERAILS UP. WILL MONITOR CLOSELY
[2017-02-25] MEDS: VANCOMYCIN 1.25 GM in IV D5W 500 ML IV SCH (20:13)
[2017-02-26] VITALS (106 sets, daily range): BP systolic 86–133; BP diastolic 55–93
[2017-02-26] MEDS: PROPOFOL 100 ML IV PRN ×5 (02:42→20:01)
[2017-02-26 04:59] LABS: BASOPHILS # (AUTO) 0.1 /CMM (0.0-0.2); BASOPHILS % (AUTO) 1.2 % (0.0-2.0); EOSINOPHILS # (AUTO) 0.2 /CMM (0.0-0.7); EOSINOPHILS % (AUTO) 2.8 % (0.0-6.0); HEMATOCRIT 39 % (39-51); HEMOGLOBIN 13.1 g/dL (13.5-17.5); LYMPHOCYTES # (AUTO) 0.9 /CMM (0.8-4.8); LYMPHOCYTES % (AUTO) 11.4 % (20.0-44.0); MEAN CORPUSCULAR HEMOGLOBIN 33 PG (26.0-33.0); MEAN CORPUSCULAR HGB CONC 34 g/dl (31.0-36.0); MEAN CORPUSCULAR VOLUME 98 fL (80-96); MONOCYTES # (AUTO) 1.5 /CMM (0.1-1.30); MONOCYTES % (AUTO) 18.6 % (2.0-12.0); NEUTROPHILS # (AUTO) 5.2 /CMM (1.8-8.9); PLATELET COUNT (AUTO) 192 /CMM (150-450); RDW COEFFICIENT OF VARIATION 15.1 (11.5-15.0); RED BLOOD CELL COUNT(AUTO) 3.98 MIL/uL (4.5-6.0); WHITE BLOOD COUNT (AUTO) 7.9 K/uL (4.3-11.0)
[2017-02-26] MEDS: PHENYTOIN SODIUM IV 50 MG/ML VIAL IV SCH ×3 (05:12→21:26)
[2017-02-26] MEDS: PIPERACILLIN /TAZOBACTAM 3.375 G in IV D5W 50 ML IV SCH ×3 (05:12→17:35)
[2017-02-26 05:25] LABS: CALCIUM, SERUM 7.6 mg/dL (8.5-10.1); CREATININE 1.1 mg/dL (0.6-1.3); MAGNESIUM 1.8 mg/dL (1.8-2.4); PHOSPHORUS 3.2 mg/dL (2.5-4.9); POTASSIUM 3.4 mmol/L (3.5-5.1)
[2017-02-26 06:13] LABS: BAND % (MANUAL) 3 % (0.0-5.0); EOSINOPHILS % (MANUAL) 4 % (0-4); LYMPHOCYTES % (MANUAL) 10 % (16-48); MONOCYTES % (MANUAL) 17 % (0-11.0); NEUTROPHILS % (MANUAL) 66 (42-76)
--- NOTE | 2017-02-26 06:30 | NUR ---
RN CLOSING NOTES PT REMAINS STABLE OF THE MOMENT. MITCH DRIP @ 20MCG/MIN, DIPRIVAN DRIP @ 40MCG/KG/MIN. ALL OTHER DUE MEDS GIVEN, AM CARE PROVIDED. WILL ENDORSE YAS TO AM RN
[2017-02-26] MEDS: IV NS 0.9% 500 ML IV PRN (06:41)
[2017-02-26 08:54] LABS: ABG BASE EXCESS 1.9 mmol/L; ABG OXYGEN SATURATION 93.9 % (92.0-98.5); ABG PCO2 34.6 mmHg (35.0-45.0); ABG PH 7.478 (7.350-7.450); ABG PO2 69.9 mmHg (75.0-100.0); AaDO2 355.9 mmHg; COHb 0.1 % (0.5-1.5); MetHb 0.5 % (0.0-1.5); O2Hb 93.3 % (94.0-97.0); PEEP,BG 12 cm H2O; SITE, ABG Left Radial; VT, ABG 550 mL
--- NOTE | 2017-02-26 08:54 | NUR ---
DR WEBB AT BEDSIDE. UPDATED ON PROGRESS, DILANTIN LEVEL REPORTED. NEW ORDER FOR ONE TOME 800 MG DILANTIN BOLUS PLACED IN [facility].
[2017-02-26] MEDS ORDERED: PHENYTOIN SODIUM IV ONE (09:00)
[2017-02-26] MEDS ORDERED: NS 0.9% IV ONE (09:00)
[2017-02-26] MEDS: VANCOMYCIN 1.25 GM in IV D5W 500 ML IV SCH ×2 (09:30→21:26)
[2017-02-26] MEDS: ACETAMINOPHEN 325 MG TABLET PO PRN ×2 (09:31→14:48)
[2017-02-26] MEDS: ASPIRIN 325 MG TABLET PO SCH (09:31)
[2017-02-26] MEDS: FAMOTIDINE/PF INJ 20 MG/2 ML VIAL IV SCH ×2 (09:31→12:04)
[2017-02-26] MEDS: MULTIVITAMINS,THERAGRAN 1 UDTAB TABLET PO SCH (09:31)
[2017-02-26] MEDS: LACTOBACILLUS RHAMNOSUS GG 1 EACH CAP.SPRINK PO SCH ×2 (09:31→14:48)
[2017-02-26] MEDS: FOLIC ACID 1 MG TABLET PO SCH (09:31)
[2017-02-26] MEDS: HYDROGEL DRESSING 90 GM TUBE TP SCH (09:32)
[2017-02-26] MEDS ORDERED: POTASSIUM CHLORIDE 20 MEQ POWDER PACKET GT ONE (12:00)
[2017-02-26] MEDS ORDERED: Calcium Gluconate 1GM/10ML 4.65 MEQ in IV D5W 50 ML IV ONE (12:00)
--- NOTE | 2017-02-26 12:00 | NUR ---
DR CRUZ IS HERE TO SEE PT. UPDATED ON PROGRESS.
[2017-02-26] MEDS: PHENYLEPHRINE 80 MG in IV D5W 250 ML IV PRN (14:47)
--- NOTE | 2017-02-26 17:00 | NUR ---
PT OFF SEDATION AT BEDSIDE. PT ABLE TO FOLLOW SIMPLE COMMANDS.
[2017-02-26] MEDS: FIBERSOURCE HN 1,000 ML BOTTLE GT PRN (18:45)
--- NOTE | 2017-02-26 19:36 | NUR ---
RT RECEIVED PT ORALLY INTUBATED WITH A 7.0 ETT SECURED AT 23CM AT THE LIP WITH NOTED VENT SETTINGS. VENT ALARMS CHECKED AND AUDIBLE WITH BVM BY BEDSIDE. NEWS PRODUCER CUFF PRESSURE DONE. VENT IS PLUGGED INTO RED OUTLET. B/S BIALTERAL SX WITH MOD THK YELLOW/SOTELO SECRETIONS. NO RESPIRATORY DISTRESS NOTED AT THIS TIME, WILL CONTINUE TO MONITOR T/O SHIFT. Addendum: 02/26/17 at 2002 by SANDRA ALCALA RT Amended: Links added.
--- NOTE | 2017-02-26 20:34 | NUR ---
received pt from day shift, sedated on Diprivan at 40mcg, SR, receiving mane at 10mcg, on the vent, lungs congested, no edema, CVP monitoring, f/c good output, NG to feeding no residual, v/s stable, no pain, pt turned and repositioned.
[2017-02-27] VITALS (60 sets, daily range): BP systolic 92–136; BP diastolic 63–96
--- NOTE | 2017-02-27 00:26 | NUR ---
pt is resting in the bed, on diprivan at 30mcg, receiving mane at 10mcg, v/s stable, no pain, pt turned and repositioned q2hrs.
[2017-02-27] MEDS: PIPERACILLIN /TAZOBACTAM 3.375 G in IV D5W 50 ML IV SCH ×5 (00:53→23:48)
[2017-02-27] MEDS: PROPOFOL 100 ML IV PRN ×5 (03:18→22:59)
--- NOTE | 2017-02-27 04:17 | NUR ---
pt is resting in the bed, no acute distress overnight, sedated on diprivan at 40mcg, receiving mane at 10mcg, tolerates feeding, v/s stable, no pain, pt cleaned, changed and repositioned q2hrs.
[2017-02-27 04:54] LABS: CALCIUM, SERUM 8.5 mg/dL (8.5-10.1); CREATININE 1.1 mg/dL (0.6-1.3); POTASSIUM 3.5 mmol/L (3.5-5.1)
[2017-02-27 04:59] LABS: ALBUMIN 2.4 g/dL (3.4-5.0); BILIRUBIN,DIRECT 1.1 mg/dL (0.0-0.2); BILIRUBIN,TOTAL 1.8 mg/dL (0.2-1.0); MAGNESIUM 1.8 mg/dL (1.8-2.4); PHOSPHORUS 3.6 mg/dL (2.5-4.9); TOTAL PROTEIN, SERUM 7.9 g/dL (6.4-8.2)
[2017-02-27] MEDS: PHENYTOIN SODIUM IV 50 MG/ML VIAL IV SCH ×3 (05:00→20:35)
[2017-02-27] MEDS ORDERED: POTASSIUM CHLORIDE 20 MEQ POWDER PACKET NG SCH (07:00)
[2017-02-27] MEDS ORDERED: FUROSEMIDE 20 MG/2 ML VIAL IV SCH (07:00)
[2017-02-27] MEDS: MULTIVITAMINS,THERAGRAN 1 UDTAB TABLET PO SCH (08:06)
[2017-02-27] MEDS: LACTOBACILLUS RHAMNOSUS GG 1 EACH CAP.SPRINK PO SCH ×2 (08:06→16:32)
[2017-02-27] MEDS: FOLIC ACID 1 MG TABLET PO SCH (08:06)
[2017-02-27] MEDS ORDERED: MAGNESIUM OXIDE 400 MG TABLET NG SCH (08:06)
[2017-02-27] MEDS: ASPIRIN 325 MG TABLET PO SCH (08:06)
[2017-02-27] MEDS ORDERED: MAGNESIUM OXIDE 400 MG TABLET NG ONE (08:06)
[2017-02-27] MEDS: FAMOTIDINE/PF INJ 20 MG/2 ML VIAL IV SCH ×2 (08:06→20:35)
[2017-02-27] MEDS: HYDROGEL DRESSING 90 GM TUBE TP SCH (08:23)
[2017-02-27] MEDS: VANCOMYCIN 1.25 GM in IV D5W 500 ML IV SCH ×2 (09:13→20:35)
[2017-02-27 10:19] LABS: ABG BASE EXCESS 2.8 mmol/L; ABG PCO2 35.2 mmHg (35.0-45.0); ABG PH 7.485 (7.350-7.450); ABG PO2 64.4 mmHg (75.0-100.0); AaDO2 360.8 mmHg; COHb 0.4 % (0.5-1.5); MetHb 0.6 % (0.0-1.5); O2Hb 92.1 % (94.0-97.0); PEEP,BG 12 cm H2O; SITE, ABG Right Radial; VT, ABG 550 mL
--- NOTE | 2017-02-27 10:20 | NUR ---
ICU/RN - Notes At 0825 Diprivan turned off for sedation vacation. Pt awake and alert, follows commands - squeeze hands and wiggles toes. Pt placed back on sedation as no plans for mechanical ventilation wean for today, and spO2 90% while off sedation. at bedside aware of plan of care.
[2017-02-27] MEDS: PROSOURCE / PROSTAT (PYXIS) 30 ML UDC PO SCH (16:32)
--- NOTE | 2017-02-27 20:26 | NUR ---
received pt from day shift, sedated on diprivan at 40mcg, SR, on the vent, lungs congested, no edema, CVP monitoring, OG to feeding some residual, f/c good output, v/s stable, no pain, pt turned and repositioned.
[2017-02-28] VITALS (43 sets, daily range): BP systolic 106–133; BP diastolic 65–81
--- NOTE | 2017-02-28 00:25 | NUR ---
pt is resting in the bed, sedated on diprivan at 40mcg, v/s stable, no pain, pt turned and repositioned q2hrs.
[2017-02-28] MEDS: PROPOFOL 100 ML IV PRN ×4 (03:08→20:01)
--- NOTE | 2017-02-28 04:33 | NUR ---
pt is resting in the bed, no acute distress overnight, sedated on diprivan at 40mcg, tolerates feeding, v/s stable, no pain, pt cleaned, changed and repositioned q2hrs.
[2017-02-28 04:41] LABS: BASOPHILS % (AUTO) 0.2 % (0.0-2.0); EOSINOPHILS # (AUTO) 0.3 /CMM (0.0-0.7); HEMATOCRIT 39 % (39-51); HEMOGLOBIN 13.1 g/dL (13.5-17.5); LYMPHOCYTES % (AUTO) 11.5 % (20.0-44.0); MEAN CORPUSCULAR HEMOGLOBIN 33 PG (26.0-33.0); MEAN CORPUSCULAR HGB CONC 34 g/dl (31.0-36.0); MEAN CORPUSCULAR VOLUME 98 fL (80-96); MONOCYTES # (AUTO) 1.4 /CMM (0.1-1.30); MONOCYTES % (AUTO) 16.7 % (2.0-12.0); NEUTROPHILS # (AUTO) 5.7 /CMM (1.8-8.9); NEUTROPHILS % (AUTO) 68.6 % (43.0-81.0); PLATELET COUNT (AUTO) 252 /CMM (150-450); RDW COEFFICIENT OF VARIATION 14.7 (11.5-15.0); RED BLOOD CELL COUNT(AUTO) 4.01 MIL/uL (4.5-6.0); WHITE BLOOD COUNT (AUTO) 8.4 K/uL (4.3-11.0)
[2017-02-28] MEDS: PIPERACILLIN /TAZOBACTAM 3.375 G in IV D5W 50 ML IV SCH ×3 (05:05→17:07)
[2017-02-28 05:28] LABS: CALCIUM, SERUM 7.8 mg/dL (8.5-10.1); CREATININE 1.2 mg/dL (0.6-1.3); MAGNESIUM 1.9 mg/dL (1.8-2.4); PHOSPHORUS 3.9 mg/dL (2.5-4.9); POTASSIUM 3.6 mmol/L (3.5-5.1)
[2017-02-28] MEDS: LACTOBACILLUS RHAMNOSUS GG 1 EACH CAP.SPRINK PO SCH ×2 (08:09→17:12)
[2017-02-28] MEDS: FOLIC ACID 1 MG TABLET PO SCH (08:09)
[2017-02-28] MEDS: MULTIVITAMINS,THERAGRAN 1 UDTAB TABLET PO SCH (08:09)
[2017-02-28] MEDS: ASPIRIN 325 MG TABLET PO SCH (08:09)
[2017-02-28] MEDS: PHENYTOIN SODIUM IV 50 MG/ML VIAL IV SCH ×2 (08:10→20:51)
[2017-02-28] MEDS: HYDROGEL DRESSING 90 GM TUBE TP SCH (08:10)
[2017-02-28] MEDS: PROSOURCE / PROSTAT (PYXIS) 30 ML UDC PO SCH ×2 (08:10→17:12)
[2017-02-28] MEDS: VANCOMYCIN 1.25 GM in IV D5W 500 ML IV SCH (08:12)
[2017-02-28] MEDS: FAMOTIDINE/PF INJ 20 MG/2 ML VIAL IV SCH ×2 (09:10→20:51)
[2017-02-28 10:35] LABS: ABG BASE EXCESS 1.9 mmol/L; ABG PCO2 39.3 mmHg (35.0-45.0); ABG PH 7.439 (7.350-7.450); ABG PO2 95.9 mmHg (75.0-100.0); AaDO2 252.5 mmHg; COHb 0.4 % (0.5-1.5); MetHb 0.6 % (0.0-1.5); PEEP,BG 10 cm H2O; SITE, ABG Right Radial; VT, ABG 550 mL
--- NOTE | 2017-02-28 15:36 | NUR ---
Met with patient ex- Kayli. Per , patient was living with ex- temporarily. Prior to admission, patient was ambulatory and independent with adl's. He is unemployed and suffered stress and depression. Ex- is working on patient medical insurance. Current plan is to return home with his on discharge. Currently he is in ICU, patient is responsive, intubated/vent and on diprivan gtt. Addendum: 02/28/17 at 1537 by NATO SIERRA RN Amended: Links added.
[2017-02-28] MEDS: ACETAMINOPHEN 325 MG TABLET PO PRN (17:12)
--- NOTE | 2017-02-28 17:37 | NUR ---
DIVISION COMMANDER NOTE 0720: Received patient sedated, with ETT to vent, tolerated settings at this time. With OGT intact, feeding tolerated, noted with 40mLs residuals, kept HOB elevated. With TYSON PICC intact CVP reads 9. SR on the monitor. With James cath intact, noted with moderate amount dark melina colored urine drained to BSD. 0930: S/E by Dr. Stoddard, ABG done with order to decrease PEEP from 12 to 10. FIO 55% now from 65%, tolerated, Sat 95%. 1020: S/E by Dr. Mcconnell, no new order at this time. 1650: S/E by KRISTIAN Price, no new order at this time, aware for episode of 100.1 at 1630, Tylenol given. 1720: No significant changes noted at this time. Remained off pressors. Kept clean, warm and dry. Needs attended. Kept call light at reach. at bedside, kept updated for the POC. On 30mcg of Diprivan, patient is calm and comfortable. Able to follow simple coomands.
--- NOTE | 2017-02-28 20:00 | NUR ---
RN NOTES RECEIVED PX ASLEEP, SEDATED ON PROPOFOL, ETT CONNECTED TO VENT WITH CUFF INTACT; NGT TO TF; WITH JASSO CATH TAPED TO THIGH TO BAG BY GRAVITY; HEELS OFFLOADED; DVT PUMPS ON; PICC LINE ON RT UA WITH CVP MONITORING AT 7; SUCTIONED ORALLY AND VIA ETT; TF TOLERATED WELL; CONTINUED PROPOFOL DRIP.
[2017-02-28] MEDS: VANCOMYCIN 1 GM in IV D5W 250 ML IV SCH (20:01)
[2017-03-01] VITALS (55 sets, daily range): BP systolic 93–162; BP diastolic 58–121
--- NOTE | 2017-03-01 | NUR ---
RN NOTES CONDITION AND NEURO STATUS UNCHANGED; SUCTIONED ORALLY AND VIA ETT; REPOSITIONED PX; CONTINUED TO MONITOR PX.
[2017-03-01] MEDS: PIPERACILLIN /TAZOBACTAM 3.375 G in IV D5W 50 ML IV SCH ×4 (00:03→18:26)
[2017-03-01] MEDS: PROPOFOL 100 ML IV PRN ×7 (00:03→22:42)
[2017-03-01 05:15] LABS: BASOPHILS % (AUTO) 0.2 % (0.0-2.0); EOSINOPHILS # (AUTO) 0.3 /CMM (0.0-0.7); EOSINOPHILS % (AUTO) 2.9 % (0.0-6.0); HEMATOCRIT 39 % (39-51); HEMOGLOBIN 13.3 g/dL (13.5-17.5); MEAN CORPUSCULAR HEMOGLOBIN 33 PG (26.0-33.0); MEAN CORPUSCULAR HGB CONC 34 g/dl (31.0-36.0); MEAN CORPUSCULAR VOLUME 97 fL (80-96); MONOCYTES # (AUTO) 1.4 /CMM (0.1-1.30); MONOCYTES % (AUTO) 14.7 % (2.0-12.0); NEUTROPHILS # (AUTO) 6.7 /CMM (1.8-8.9); NEUTROPHILS % (AUTO) 71.2 % (43.0-81.0); PLATELET COUNT (AUTO) 287 /CMM (150-450); RDW COEFFICIENT OF VARIATION 14.6 (11.5-15.0); RED BLOOD CELL COUNT(AUTO) 4.05 MIL/uL (4.5-6.0); WHITE BLOOD COUNT (AUTO) 9.4 K/uL (4.3-11.0)
[2017-03-01 05:32] LABS: CALCIUM, SERUM 8.3 mg/dL (8.5-10.1); CREATININE 1.2 mg/dL (0.6-1.3); MAGNESIUM 1.9 mg/dL (1.8-2.4); PHOSPHORUS 3.9 mg/dL (2.5-4.9); POTASSIUM 3.6 mmol/L (3.5-5.1)
--- NOTE | 2017-03-01 06:13 | NUR ---
RN NOTES AM CARE DONE, BED BATH GIVEN, HAD 1 BM, LARGE BROWN SOFT, PERICARE RENDERED, CHANGED DRESSING ON THE SACRAL AREA USING HYDROGEL PLUS MEPILEX; ORAL, JASSO CARE GIVEN; ALL PROCEDURES TOLERATED WELL. CONDITION AND NEURO STATUS UNCHANGED, SUCTIONED ORALLY AND VIA ETT, CONTINUED ON PROPOFOL DRIP, NO NEW SKIN BREAKDOWN; SR ON MONITOR. WILL ENDORSE TO NEXT RN.
--- NOTE | 2017-03-01 07:37 | NUR ---
INITIAL EMS COORDINATOR NOTE RCVD PT SEDATED, INTUBATED, ETT 7.0 24 AT THE LIP. TOLERATING ORDERED VENT SETTINGS. SR ON TELE. OG TUBE PLACEMENT VERIFIED BY AUSCULTATION/ASPIRATION. RESIDUAL OF 10 ML OBSERVED. TOLERATING ORDERED TUBE FEEDING RATE. JASSO DRAINING YELLOW URINE. IV SITES C/D/I/PATENT. NO S/O INFILTRATION/PHLEBITIS OBSERVED. IVF INFUSING TKO. WILL CONTINUE TO MONITOR PT FOR SAFETY AND COMFORT. CALL LIGHT WITHIN REACH. BED IN LOW AND LOCKED POSITION.
[2017-03-01] MEDS: PROSOURCE / PROSTAT (PYXIS) 30 ML UDC PO SCH ×2 (08:52→18:26)
[2017-03-01] MEDS: MULTIVITAMINS,THERAGRAN 1 UDTAB TABLET PO SCH (08:52)
[2017-03-01] MEDS: PHENYTOIN SODIUM IV 50 MG/ML VIAL IV SCH ×2 (08:52→22:15)
[2017-03-01] MEDS: FOLIC ACID 1 MG TABLET PO SCH (08:52)
[2017-03-01] MEDS: FAMOTIDINE/PF INJ 20 MG/2 ML VIAL IV SCH ×2 (08:52→22:16)
[2017-03-01] MEDS: LACTOBACILLUS RHAMNOSUS GG 1 EACH CAP.SPRINK PO SCH ×2 (08:52→18:26)
[2017-03-01] MEDS: ASPIRIN 325 MG TABLET PO SCH (08:52)
[2017-03-01] MEDS: HYDROGEL DRESSING 90 GM TUBE TP SCH (08:53)
[2017-03-01] MEDS: VANCOMYCIN 1 GM in IV D5W 250 ML IV SCH ×2 (08:54→22:14)
--- NOTE | 2017-03-01 10:06 | NUR ---
PHOTOVOLTAIC POWER SYSTEMS ENGINEER NOTE SEDATION VACATION IMPLEMENTED, PT ALERT, ABLE TO FOLLOW COMMANDS. PT'S AT BEDSIDE UPDATED ON PT'S CONDITION.
[2017-03-01] MEDS: LORAZEPAM INJ 2 MG/ML VIAL IV PRN (15:04)
--- NOTE | 2017-03-01 16:37 | NUR ---
EVENT STAFF NOTE PT RESTLESS, BITING ETT. SEDATION TITRATED UP. WILL CONTINUE TO MONITOR.
--- NOTE | 2017-03-01 17:17 | NUR ---
INTERNET MANAGER NOTE PT CALM AT THIS TIME TOLERATING ETT. WILL CONTINUE TO MONITOR.
--- NOTE | 2017-03-01 17:44 | NUR ---
RT PER DR CHAIREZ PEEP TITRATED TO 8. ETT PUSHED IN 2CM AND SECURED AT 26CM. JONA BANUELOS AWARE Addendum: 03/01/17 at 1745 by PANCHO WEINSTEIN RT Amended: Links added.
--- NOTE | 2017-03-01 18:05 | NUR ---
CONFERENCE PLANNING MANAGER NOTE KRISTIAN SHELLEY IN UNIT INFORMED OF PT'S FEVER 101, LOOSE STOOLS. RECOMMENDED TO DÍAZ CX PT. WILL F/U.
--- NOTE | 2017-03-01 19:38 | NUR ---
ENDING MINE SUPERVISOR NOTE PT REMAINS OFF PRESSORS, TOLERATING ORDERED VENT SETTINGS. PER DR. CHAIREZ RT PUSHED ETT 2CM. ETT 26 AT LIP AT THIS TIME. PT STILL SEDATED, ST ON TELE. PT'S CARE ENDORSED TO MERCHANDISE DISPLAYER RN FOR CONTINUITY OF CARE.
--- NOTE | 2017-03-01 20:33 | NUR ---
ELECTRIC METER SETTER. INITIAL ASSESSMENT. RECEIVED THE PT REST ON THE BED. ORALLY INTUBATED. ETT #7,LIP 26,AC 18, TV 550, FIO2 60%SAT 98%. NO ACUTE DISTRESS NOTED. EDGE BLACKER SHOWING NSR. IV RT UPPER ARM PICC LINE DIPRIVAN 50MCG/KG/MIN,CVP LINE CONNECTED TO PICC LINE. NPO. OGT INTACT. FIBER SOURCE 40ML/H. FC PATENT. BARBARA SOFT WRIST RESTRAINT CHECKED AND RELEASED. NO INJURY OR REDNESS NOTED. HOB ELEVATED. TURN AND REPOSITION Q2H. WILL CONTINUE TO MONITOR VITALS. WILL CONTINUE TO MONITOR VITALS.
[2017-03-01] MEDS: ACETAMINOPHEN 325 MG TABLET PO PRN (22:14)
[2017-03-01] MEDS: METRONIDAZOLE 500 MG TABLET PO SCH (22:16)
[2017-03-02] VITALS (51 sets, daily range): BP systolic 85–158; BP diastolic 55–96
[2017-03-02] MEDS: PIPERACILLIN /TAZOBACTAM 3.375 G in IV D5W 50 ML IV SCH ×4 (00:34→17:43)
[2017-03-02] MEDS: PROPOFOL 100 ML IV PRN ×5 (01:31→09:22)
[2017-03-02] MEDS: FIBERSOURCE HN 1,000 ML BOTTLE GT PRN (02:27)
--- NOTE | 2017-03-02 03:00 | NUR ---
METROPOLITAN EDITOR. AM CARE. ORAL CARE, BED BATH GIVEN. LINEN CHANGED. REMAINING SAME VENT SETTING TOLERATED WELL. SAT 98%, NO ACUTE DISTRESS NOTED, LINE INSPECTOR SHOWING NSRIV RT UPPER ARM PICC LINE DIPRIVAN 60MCGLKG/MIN, FC PSTENT. URINE DRAININH, A LINE ATTACHED TO THE PICC LINE. OGT FEEDING TOLERATED WELL. HOB ELEVATED, TURN AND REPOSITION Q2H. WILL CONTINUE TO MONITOR VITALS.
[2017-03-02 04:51] LABS: BASOPHILS # (AUTO) 0.1 /CMM (0.0-0.2); BASOPHILS % (AUTO) 0.6 % (0.0-2.0); EOSINOPHILS # (AUTO) 0.1 /CMM (0.0-0.7); EOSINOPHILS % (AUTO) 1.3 % (0.0-6.0); HEMATOCRIT 41 % (39-51); HEMOGLOBIN 13.5 g/dL (13.5-17.5); LYMPHOCYTES # (AUTO) 0.8 /CMM (0.8-4.8); LYMPHOCYTES % (AUTO) 8.4 % (20.0-44.0); MEAN CORPUSCULAR HEMOGLOBIN 32 PG (26.0-33.0); MEAN CORPUSCULAR HGB CONC 33 g/dl (31.0-36.0); MEAN CORPUSCULAR VOLUME 97 fL (80-96); MONOCYTES # (AUTO) 0.5 /CMM (0.1-1.30); MONOCYTES % (AUTO) 4.7 % (2.0-12.0); NEUTROPHILS # (AUTO) 8.2 /CMM (1.8-8.9); PLATELET COUNT (AUTO) 310 /CMM (150-450); RDW COEFFICIENT OF VARIATION 14.5 (11.5-15.0); RED BLOOD CELL COUNT(AUTO) 4.19 MIL/uL (4.5-6.0); WHITE BLOOD COUNT (AUTO) 9.6 K/uL (4.3-11.0)
[2017-03-02 04:54] LABS: CALCIUM, SERUM 8.5 mg/dL (8.5-10.1); CREATININE 1.1 mg/dL (0.6-1.3); POTASSIUM 3.8 mmol/L (3.5-5.1)
[2017-03-02] MEDS: METRONIDAZOLE 500 MG TABLET PO SCH ×3 (05:28→20:07)
[2017-03-02 05:42] LABS: BAND % (MANUAL) 8 % (0.0-5.0); LYMPHOCYTES % (MANUAL) 10 % (16-48); MONOCYTES % (MANUAL) 6 % (0-11.0); NEUTROPHILS % (MANUAL) 75 (42-76); REACTIVE LYMPHOCYTES 1 % (0-0)
--- NOTE | 2017-03-02 06:17 | NUR ---
BED SCALE NOT WORKING. WT NOT TAKEN.
--- NOTE | 2017-03-02 07:10 | NUR ---
NEWS AGENT. RADIOLOGY DR RAMACHANDRAN CALLED FOR ETT 3.5CM RETRACTED RT WILFRED , ROOM SERVICE MANAGER GIL AND JONA BANUELOS MADE AWARE. .JONA HARRIS SAID WAIT FOR CLINICAL DOCUMENTATION MANAGER
--- NOTE | 2017-03-02 07:30 | NUR ---
DRIVEWAY SEALER NOTE RCVD PT INTUBATED, SEDATED, ST ON TELE. TOLERATING ORDERED VENT SETTINGS. JASSO DRAINING ANDRE COLORED URINE. OG TUBE PLACEMENT VERIFIED BY AUSCULTATION/ASPIRATION, RESIDUAL 20 ML OBSERVED. TOLERATING TUBE FEEDING WELL. IV SITES C/D/I/PATENT. NO S/O INFILTRATION/PHLEBITIS OBSERVED. IVF INFUSING. WILL CONTINUE TO MONITOR PT FOR SAFETY AND COMFORT. CALL LIGHT WITHIN REACH. BED IN LOW AND LOCKED POSITION. MANOLO/WILFRED RTs NOTIFIED TO PULL ETT 3.[address] CHAUDHARI'S RECOMMENDATION. MARIUSZ HARRIS ENTERED ORDER.
[2017-03-02] MEDS: LORAZEPAM INJ 2 MG/ML VIAL IV PRN (07:39)
--- NOTE | 2017-03-02 08:00 | NUR ---
TRIAGE TECHNICIAN NOTE PT STARTED HAVING SEIZURE LIKE MOVEMENT, PRODUCING CLEAR, FOAMY SECRETIONS AND MICHAEL BUE AROUND 0738, DESPITE ATIVAN ADMINISTRATION AND SEDATION CONTINUES TO SEIZE. DR. CRUZ PAGED. SEIZURE STOPPED AT 0757. DR. CRUZ CALLED BACK SHE WAS INFORMED OF ABOVE AND THAT PT'S TRIGLYCERIDES 458 THIS AM. SHE RECOMMENDED TO ADD KEPPRA TO PT'S REGIMEN AND ATIVAN 1MG Q15 MIN FOR SEIZURES. SHE'LL DISCUSS PT'S SEDATION WHEN SHE COMES TO UNIT. WILL CONTINUE TO MONITOR PT
[2017-03-02] MEDS ORDERED: LORAZEPAM INJ 2 MG/ML VIAL IV PRN (08:30)
[2017-03-02] MEDS ORDERED: LEVETIRACETAM (500MG) 500 MG in IV NS 0.9% 100 ML IV ONE (08:30)
--- NOTE | 2017-03-02 08:30 | NUR ---
Intubated pt received on mechanical vent. PT 7.0 ETT retracted 3.5 cm per MD order. Vent is plugged into a red outlet, alarms are set and audible, and BMV is at bedside, Addendum: 03/02/17 at 0853 by ANUPAM SHIN RT Amended: Links added.
--- NOTE | 2017-03-02 08:39 | NUR ---
SUPERVISOR NUTRITIONAL YEAST NOTE PER MANOLO, RT ETT PULLED 3.5 CM. CHEST XRAY ORDERED TO VERIFY PLACEMENT. WILL F/U.
[2017-03-02 08:47] LABS: ABG BASE EXCESS 1.2 mmol/L; ABG OXYGEN SATURATION 93.3 % (92.0-98.5); ABG PCO2 37.3 mmHg (35.0-45.0); ABG PH 7.445 (7.350-7.450); ABG PO2 67.7 mmHg (75.0-100.0); AaDO2 319.1 mmHg; COHb 0.1 % (0.5-1.5); MetHb 0.6 % (0.0-1.5); O2Hb 92.6 % (94.0-97.0); SITE, ABG Right Radial
[2017-03-02] MEDS: PHENYTOIN SODIUM IV 50 MG/ML VIAL IV SCH ×2 (08:52→20:07)
[2017-03-02] MEDS: ASPIRIN 325 MG TABLET PO SCH (08:52)
[2017-03-02] MEDS: FAMOTIDINE/PF INJ 20 MG/2 ML VIAL IV SCH ×2 (08:52→20:07)
[2017-03-02] MEDS: FOLIC ACID 1 MG TABLET PO SCH (08:52)
[2017-03-02] MEDS: LACTOBACILLUS RHAMNOSUS GG 1 EACH CAP.SPRINK PO SCH ×2 (08:52→17:42)
[2017-03-02] MEDS: MULTIVITAMINS,THERAGRAN 1 UDTAB TABLET PO SCH (08:52)
[2017-03-02] MEDS: PROSOURCE / PROSTAT (PYXIS) 30 ML UDC PO SCH ×2 (08:53→17:43)
[2017-03-02] MEDS: HYDROGEL DRESSING 90 GM TUBE TP SCH (08:55)
[2017-03-02] MEDS: VANCOMYCIN 1 GM in IV D5W 250 ML IV SCH ×2 (09:12→21:24)
[2017-03-02] MEDS ORDERED: FENTANYL CITRAT IV 2,500 MCG in IV NS 0.9% 200 ML IV PRN (12:00)
[2017-03-02] MEDS ORDERED: MIDAZOLAM HCL 100 MG in IV NS 0.9% 80 ML IV PRN (12:00)
--- NOTE | 2017-03-02 12:15 | NUR ---
VOLTAGE REGULATOR ASSEMBLER NOTE SEDATION VACATION IMPLEMENTED. PT ALERT, ABLE TO FOLLOW COMMANDS. PT'S AT BEDSIDE UPDATED ON PT'S CONDITION. DR. CRUZ SPOKE WITH PT'S AND UPDATED HER ON HIS CONDITION.
[2017-03-02] MEDS: MIDAZOLAM HCL 100 MG in IV NS 0.9% 80 ML IV PRN (13:15)
[2017-03-02] MEDS: FENTANYL CITRAT IV 2,500 MCG in IV NS 0.9% 200 ML IV PRN (13:27)
--- NOTE | 2017-03-02 15:00 | NUR ---
RAG COLLECTOR NOTE SEDATION FENTANYL INCREASED TO 5.5 ML/HR OR 55 MCG/HR AND VERSED INCREASED TO 2 ML/HR. PT APPEARS UNCOMFORTABLE WITH ETT. WILL CONTINUE TO MONITOR.
[2017-03-02 15:26] LABS: PEEP,BG 8 cm H2O; VENT MODE, BG AC 18 550 60% +8; VT, ABG 550 mL
--- NOTE | 2017-03-02 16:00 | NUR ---
WHARF BUILDER NOTE SEDATION FENTANYL INCREASED TO 7.5 ML/HR OR 75 MCG/HR DUE TO PT NOT TOLERATING ETT. VOLUME DOESN'T MATCH IV SPREADSHEET.
[2017-03-02] MEDS: RIFAXIMIN 550 MG TABLET PO SCH (17:42)
--- NOTE | 2017-03-02 19:16 | NUR ---
ENDING CHIEF ENGINEER NOTE NO OTHER SEIZURE EPISODES WITNESSED DURING SHIFT. PT REMAINS INTUBATED, SEDATED WITH VERSED/FENTANYL. TOLERATING ORDERED VENT SETTINGS. TOLERATING ORDERED TUBE FEEDINGS. JASSO IN PLACE DRAINING ANDRE COLORED URINE. IV SITES C/D/I/PATENT. NO S/O INFILTRATION/PHLEBITIS OBSERVED. IVF INFUSING. PT'S CARE ENDORSED TO HOSPICE CARE SALES CONSULTANT RN. BED IN LOW AND LOCKED POSITION.
--- NOTE | 2017-03-02 20:26 | NUR ---
RN:ICU: PT RECEIVED IN BED INTUBATED AND SEDATED ON FENTANYL/VERSED GTT SECONDARY TO ELEVATED TRIGLYCERIDES. PT APPEARS COMFORTABLE, BUT STILL REQUIRES BILATERAL SOFT WRIST RESTRAINTS FOR PATIENT SAFETY. PER DAYSHIFT PT HAD 20 MINUTE LONG SEIZURE. DILANTIN LEVEL NOT THERAPEUTIC THEREFORE DOSE WAS ADJUSTED. WHEN REMOVING DILATIN FOR SCHEDULED DOSE ONLY VIAL TAKEN INSTEAD OF TWO ORDERED, ATTEMPTED TO REMOVE SECOND ONE BY TAKING OUT MED AGAIN. CORRECT DOSE OF 200MG GIVEN. NO SEIZURE ACTIVITY NOTED AT THIS TIME. PT TOLERATING VENT SETTINGS. CVP 8. ASPIRATION/FALL/ SEIZURE PRECAUTIONS IN PLACE. VSS. WILL CONTINUE TO MONITOR CLOSELY.
[2017-03-03] VITALS (45 sets, daily range): BP systolic 100–147; BP diastolic 62–100
[2017-03-03] MEDS: PIPERACILLIN /TAZOBACTAM 3.375 G in IV D5W 50 ML IV SCH ×4 (00:19→18:06)
--- NOTE | 2017-03-03 03:28 | NUR ---
Received pt intubated size 7ETT, secured at 23cm at the lip, Vent is plugged into a red outlet, alarms are set and audible, and BMV is at bedside, Addendum: 03/03/17 at 0328 by JUNIOR ESCAMILLA RT Amended: Links added.
[2017-03-03] MEDS: IV NS 0.9% 500 ML IV PRN (05:04)
[2017-03-03] MEDS: METRONIDAZOLE 500 MG TABLET PO SCH ×3 (05:04→21:14)
[2017-03-03] MEDS: FIBERSOURCE HN 1,000 ML BOTTLE GT PRN (05:04)
[2017-03-03 05:13] LABS: BASOPHILS # (AUTO) 0.1 /CMM (0.0-0.2); BASOPHILS % (AUTO) 0.7 % (0.0-2.0); EOSINOPHILS # (AUTO) 0.2 /CMM (0.0-0.7); EOSINOPHILS % (AUTO) 2.4 % (0.0-6.0); HEMATOCRIT 38 % (39-51); HEMOGLOBIN 12.6 g/dL (13.5-17.5); LYMPHOCYTES # (AUTO) 1.1 /CMM (0.8-4.8); LYMPHOCYTES % (AUTO) 10.5 % (20.0-44.0); MEAN CORPUSCULAR HEMOGLOBIN 32 PG (26.0-33.0); MEAN CORPUSCULAR HGB CONC 33 g/dl (31.0-36.0); MEAN CORPUSCULAR VOLUME 97 fL (80-96); MONOCYTES % (AUTO) 10.3 % (2.0-12.0); NEUTROPHILS # (AUTO) 7.7 /CMM (1.8-8.9); NEUTROPHILS % (AUTO) 76.1 % (43.0-81.0); PLATELET COUNT (AUTO) 332 /CMM (150-450); RDW COEFFICIENT OF VARIATION 14.2 (11.5-15.0); RED BLOOD CELL COUNT(AUTO) 3.88 MIL/uL (4.5-6.0); WHITE BLOOD COUNT (AUTO) 10.1 K/uL (4.3-11.0)
[2017-03-03 05:31] LABS: CALCIUM, SERUM 8.6 mg/dL (8.5-10.1); CREATININE 1.2 mg/dL (0.6-1.3); MAGNESIUM 2.1 mg/dL (1.8-2.4); PHOSPHORUS 4.7 mg/dL (2.5-4.9)
--- NOTE | 2017-03-03 08:30 | NUR ---
RN NOTES PT COMFORTABLY IN BED. NO ACUTE RESP DISTRESS WITH ETT 7.0 AT 23 CM TIP CONNECTED TO VENT SETTING AC 18 TV 550 FIO2 60% PEEP 8 TOLERATED WELL. SATING 98% SR HR 78 ON TELE MONITOR. WITH RIGHT UPPER ARM PICC LINE RUNNING WITH VERSED @ 6 MG/HR AND FENTANYL 75 MCG/HR WITH CVP @ 6 INTACT AND PATENT. ORAL TUBE FEEDING NOTED WITH RESIDUAL @ 210 CC WITH MILK CONTENT. FEEDING HELD FOR THE MEANTIME AND WILL CHECKED FOR 2HOURS. DISTENDED ABDOMEN NOTED. PT IS AFEBRILE AT THIS TIME. OFFLOADED EXT WITH PILLOWS. WILL CONTINUE TO MONITOR.
[2017-03-03] MEDS ORDERED: LEVETIRACETAM (500MG) 500 MG in IV NS 0.9% 100 ML IV SCH (09:00)
[2017-03-03] MEDS: MULTIVITAMINS,THERAGRAN 1 UDTAB TABLET PO SCH (09:14)
[2017-03-03] MEDS: RIFAXIMIN 550 MG TABLET PO SCH ×2 (09:14→18:06)
[2017-03-03] MEDS: LACTOBACILLUS RHAMNOSUS GG 1 EACH CAP.SPRINK PO SCH ×2 (09:14→18:06)
[2017-03-03] MEDS: ASPIRIN 325 MG TABLET PO SCH (09:14)
[2017-03-03] MEDS: FOLIC ACID 1 MG TABLET PO SCH (09:14)
[2017-03-03] MEDS: FAMOTIDINE/PF INJ 20 MG/2 ML VIAL IV SCH ×2 (09:15→21:14)
[2017-03-03] MEDS: VANCOMYCIN 1 GM in IV D5W 250 ML IV SCH ×2 (09:15→21:13)
[2017-03-03] MEDS: HYDROGEL DRESSING 90 GM TUBE TP SCH (09:15)
[2017-03-03] MEDS: PROSOURCE / PROSTAT (PYXIS) 30 ML UDC PO SCH ×2 (09:17→18:06)
[2017-03-03] MEDS: PHENYTOIN SODIUM IV 50 MG/ML VIAL IV SCH ×2 (09:17→21:14)
--- NOTE | 2017-03-03 10:30 | NUR ---
RN NOTES FAMILY AT BEDSIDE MADE AWARE REGARDING THE PATIENT STATUS. S/ E BY DR MARTINEZ PT IS RESPONSIVE TO STIMULI, OPEN HIS EYES. NO S/S OF DISTRESS
--- NOTE | 2017-03-03 13:27 | NUR ---
RN NOTES DR. CRUZ ON THE FLOOR MADE AWARE REGARDING THE PATIENT RESIDUAL AMOUNT OF 200 CC. PER MD TO SLOW THE AMOUNT OF FEEDING FROM 40 TO 20 AND MONITORED CLOSELY.
[2017-03-03] MEDS: MIDAZOLAM HCL 100 MG in IV NS 0.9% 80 ML IV PRN (13:37)
--- NOTE | 2017-03-03 14:00 | NUR ---
RN NOTE LET DR CRUZ KNOW ABOUT LOW URINE OUTPUT <50 ML/2 HRS, NO NEW ORDERS AT THIS TIME. WILL CONTINUE TO MONITOR.
[2017-03-03 16:25] LABS: ABG BASE EXCESS 0.2 mmol/L; ABG OXYGEN SATURATION 96.6 % (92.0-98.5); ABG PCO2 39.5 mmHg (35.0-45.0); ABG PH 7.414 (7.350-7.450); ABG PO2 92.1 mmHg (75.0-100.0); AaDO2 292.3 mmHg; MetHb 0.6 % (0.0-1.5); PEEP,BG 8 cm H2O; SITE, ABG Right Radial; VT, ABG 550 mL
[2017-03-03] MEDS: FENTANYL CITRAT IV 2,500 MCG in IV NS 0.9% 200 ML IV PRN (16:37)
--- NOTE | 2017-03-03 19:00 | NUR ---
RN NOTE PT REMAINED STABLE, NO ACUTE DISTRESS, IV DRIPS RUNNING ORDERED, ALL NEEDS MET AND MEDS GIVEN ORDERED. TEACHING DONE TO PT'S , KEPT CLEAN AND DRY, SAFETY MEASURES MAINTAINED AT ALL TIMES. WILL ENDORSE TO PM NURSE.
--- NOTE | 2017-03-03 20:00 | NUR ---
CHAIR CANER NOTES RECEIVED PT IN BED. NO ACUTE RESP DISTRESS WITH ETT 7.0 AT 23 CM TIP CONNECTED TO VENT SETTING AC 18 TV 550 FIO2 60% PEEP 8 TOLERATED WELL. SATING 95% SR HR 95 ON TELE MONITOR. WITH RIGHT UPPER ARM PICC LINE RUNNING WITH VERSED @ 6 MG/HR AND FENTANYL 75 MCG/HR WITH CVP @ 12 INTACT AND PATENT. ORAL TUBE FEEDING NOTED WITH RESIDUAL @ 200 CC WITH ORANGE COLORED CONTENT. FEEDING HELD FOR THE MEANTIME AND WILL CHECK Q2H. DISTENDED ABDOMEN NOTED. PT IS AFEBRILE AT THIS TIME. OFFLOADED EXT WITH PILLOWS. WILL CONTINUE TO MONITOR.
[2017-03-04] VITALS (60 sets, daily range): BP systolic 97–155; BP diastolic 58–95
[2017-03-04] MEDS: PIPERACILLIN /TAZOBACTAM 3.375 G in IV D5W 50 ML IV SCH ×5 (00:50→23:58)
--- NOTE | 2017-03-04 04:00 | NUR ---
VETERANS' COORDINATOR NOTES URINE LEAKAGE NOTED FROM PENIS EVEN WITH JASSO CATH. JASSO CATH ASSESSED AND IRRIGATED. CATHETER HAD BECOME CLOGGED. AFTER IRRIGATION, PT YIELDED 200 ML OF URINE.
[2017-03-04] MEDS: FIBERSOURCE HN 1,000 ML BOTTLE GT PRN (04:21)
[2017-03-04] MEDS: METRONIDAZOLE 500 MG TABLET PO SCH ×3 (04:21→20:10)
--- NOTE | 2017-03-04 04:21 | NUR ---
TURN SUPERVISOR NOTES PT'S GASTRIC RESIDUAL DECREASED TO 80 ML. RESTARTED FIBERSOURCE AT 20 ML/HR WITH GOAL OF 40 ML/HR.
[2017-03-04] MEDS: IV NS 0.9% 500 ML IV PRN (04:22)
[2017-03-04] MEDS: IV NS 0.9% 250 ML IV PRN (04:22)
[2017-03-04 04:49] LABS: BASOPHILS % (AUTO) 0.3 % (0.0-2.0); EOSINOPHILS # (AUTO) 0.3 /CMM (0.0-0.7); EOSINOPHILS % (AUTO) 2.5 % (0.0-6.0); HEMATOCRIT 38 % (39-51); LYMPHOCYTES # (AUTO) 1.2 /CMM (0.8-4.8); LYMPHOCYTES % (AUTO) 12.3 % (20.0-44.0); MEAN CORPUSCULAR HEMOGLOBIN 33 PG (26.0-33.0); MEAN CORPUSCULAR HGB CONC 34 g/dl (31.0-36.0); MEAN CORPUSCULAR VOLUME 96 fL (80-96); MONOCYTES # (AUTO) 0.6 /CMM (0.1-1.30); MONOCYTES % (AUTO) 6.4 % (2.0-12.0); NEUTROPHILS # (AUTO) 7.9 /CMM (1.8-8.9); NEUTROPHILS % (AUTO) 78.5 % (43.0-81.0); PLATELET COUNT (AUTO) 333 /CMM (150-450); RDW COEFFICIENT OF VARIATION 14.5 (11.5-15.0); RED BLOOD CELL COUNT(AUTO) 3.99 MIL/uL (4.5-6.0); WHITE BLOOD COUNT (AUTO) 10.1 K/uL (4.3-11.0)
[2017-03-04 05:11] LABS: CALCIUM, SERUM 8.6 mg/dL (8.5-10.1); CREATININE 1.2 mg/dL (0.6-1.3); PHOSPHORUS 4.2 mg/dL (2.5-4.9); POTASSIUM 3.8 mmol/L (3.5-5.1)
[2017-03-04] MEDS: LORAZEPAM INJ 2 MG/ML VIAL IV PRN (05:11)
[2017-03-04 05:30] LABS: BAND % (MANUAL) 2 % (0.0-5.0); EOSINOPHILS % (MANUAL) 2 % (0-4); LYMPHOCYTES % (MANUAL) 10 % (16-48); MONOCYTES % (MANUAL) 5 % (0-11.0); NEUTROPHILS % (MANUAL) 81 (42-76)
[2017-03-04] MEDS: MIDAZOLAM HCL 100 MG in IV NS 0.9% 80 ML IV PRN ×2 (05:31→19:58)
--- NOTE | 2017-03-04 07:15 | NUR ---
RN INITIAL NOTES RECEIVED PT INTUBATED. ON [facility] VENT WITH FF SETTINGS: AC18, TV 550, FI02 60%, PEEP +5. PT SEDATED. ON VERSED AT 7MG/HR AND FENTANYL 100MCG/HR. OG IN PALCE. ON FIBERSOURCE AT 20ML/HR. WILL CLOSELY MONITOR FOR RESIDUAL. TYSON PICC LINE IN PLACE. FC IN PLACE. NO HEMATURIA NOTED. PT COMFORTABLE. BLE ELEVATED. WILL MONITOR.
[2017-03-04] MEDS: ASPIRIN 325 MG TABLET PO SCH (08:34)
[2017-03-04] MEDS: FOLIC ACID 1 MG TABLET PO SCH (08:34)
[2017-03-04] MEDS: RIFAXIMIN 550 MG TABLET PO SCH ×2 (08:34→16:08)
[2017-03-04] MEDS: VANCOMYCIN 1 GM in IV D5W 250 ML IV SCH ×2 (08:34→21:26)
[2017-03-04] MEDS: LACTOBACILLUS RHAMNOSUS GG 1 EACH CAP.SPRINK PO SCH ×2 (08:34→16:08)
[2017-03-04] MEDS: MULTIVITAMINS,THERAGRAN 1 UDTAB TABLET PO SCH (08:34)
[2017-03-04] MEDS: PHENYTOIN SODIUM IV 50 MG/ML VIAL IV SCH ×2 (08:34→20:10)
[2017-03-04] MEDS: HYDROGEL DRESSING 90 GM TUBE TP SCH (08:35)
[2017-03-04] MEDS: PROSOURCE / PROSTAT (PYXIS) 30 ML UDC PO SCH ×2 (08:37→16:09)
[2017-03-04] MEDS: FAMOTIDINE/PF INJ 20 MG/2 ML VIAL IV SCH ×2 (08:51→20:10)
--- NOTE | 2017-03-04 09:10 | NUR ---
RN NOTES SEEN AND EXAMINED BY DR. LANDAVERDE. AWARE OF PT'S STATUS. AWARE OF CURRENT LAB VALUES AND CXR RESULT. PT STILL ON VERSED AT 7MG/HR AND FENTANYL AT 100MCG/HR. REMAINS INTUBATED, TOLERATING MECH VENT WELL. NO RESPIRATORY DISTRESS NOTED. NO SIGNS OF PAIN NOTED. MD NOTIFIED OF HIGH RESIDUAL. PT ON GTF. NOTED ABDOMINAL DISTENTION. MD ORDERED KUB. WILL HOLD GTF UNTIL KUB IS DONE PER MD. WILL NOTIFY MD FOR RESULT. WILL MONITOR.
[2017-03-04 09:55] LABS: ABG BASE EXCESS 2.8 mmol/L; ABG OXYGEN SATURATION 95.3 % (92.0-98.5); ABG PCO2 43.9 mmHg (35.0-45.0); ABG PH 7.419 (7.350-7.450); ABG PO2 80.5 mmHg (75.0-100.0); AaDO2 226.6 mmHg; COHb 0.3 % (0.5-1.5); MetHb 0.8 % (0.0-1.5); O2Hb 94.3 % (94.0-97.0); SITE, ABG Right Radial; VENT MODE, BG AC 18 550 50% +5
--- NOTE | 2017-03-04 14:45 | NUR ---
RN NOTES KUB RESULT RELAYED TO DR. SAIMA CAMPOS. PER MD, RESUME GTF ORDERED. WILL MONITOR FOR RESIDUAL.
[2017-03-04] MEDS: FENTANYL CITRAT IV 2,500 MCG in IV NS 0.9% 200 ML IV PRN (15:38)
--- NOTE | 2017-03-04 17:45 | NUR ---
RN NOTES SEEN AND EXAMINED BY DR. SINGLETARY. PT ON VERSED AND FENTANYL. TOLERATING VENT WELL. NO RESPIRATORY DISTRESS NOTED. MD ORDERED HOLD SEDATION AT 0700 AND INITIATE WEANING TRIALS IN AM. NOTED AND CARRIED OUT. AT BEDSIDE AWARE.
--- NOTE | 2017-03-04 18:41 | NUR ---
RN CLOSING NOTES PT REMAINS INTUBATED, ON MECH VENT. NO RESPIRATORY DISTRESS NOTED. NO SOB NOTED. NO SIGNS OF PAIN NOTED. KEPT HOB ELEVATED. PICC LINE IN PLACE. REMAINS ON VERSED AND FENTANYL. FC IN PLACE. KEPT CLEAN AND DRY. REPOSITIONED Q2. KEPT BLE ELEVATED. KEPT COMFORTABLE. WILL ENDORSE FOR CONTINUITY OF CARE.
--- NOTE | 2017-03-04 21:01 | NUR ---
ULTRASOUND OF ABDOMEN DONE, LARGE AMOUNT OF FLUID SHOWN IN ABD
[2017-03-05] VITALS (63 sets, daily range): BP systolic 96–183; BP diastolic 56–129
[2017-03-05] MEDS: LORAZEPAM INJ 2 MG/ML VIAL IV PRN ×2 (02:34→11:25)
--- NOTE | 2017-03-05 04:24 | NUR ---
PTS HEAD IS VERY RED AND HOT COMPARED TO REST OF BODY, I PLACED ICE PACKS ON HEAD AND NECK, AND TURNED ON FAN
[2017-03-05] MEDS: METRONIDAZOLE 500 MG TABLET PO SCH ×3 (04:49→20:56)
[2017-03-05] MEDS: ACETAMINOPHEN 325 MG TABLET PO PRN ×2 (04:49→16:06)
[2017-03-05 05:00] LABS: BASOPHILS % (AUTO) 0.4 % (0.0-2.0); EOSINOPHILS # (AUTO) 0.2 /CMM (0.0-0.7); EOSINOPHILS % (AUTO) 2.4 % (0.0-6.0); HEMATOCRIT 37 % (39-51); HEMOGLOBIN 12.8 g/dL (13.5-17.5); LYMPHOCYTES # (AUTO) 0.9 /CMM (0.8-4.8); LYMPHOCYTES % (AUTO) 9.6 % (20.0-44.0); MEAN CORPUSCULAR HEMOGLOBIN 33 PG (26.0-33.0); MEAN CORPUSCULAR HGB CONC 34 g/dl (31.0-36.0); MEAN CORPUSCULAR VOLUME 96 fL (80-96); MONOCYTES # (AUTO) 0.7 /CMM (0.1-1.30); MONOCYTES % (AUTO) 7.4 % (2.0-12.0); NEUTROPHILS # (AUTO) 7.6 /CMM (1.8-8.9); NEUTROPHILS % (AUTO) 80.2 % (43.0-81.0); PLATELET COUNT (AUTO) 328 /CMM (150-450); RDW COEFFICIENT OF VARIATION 14.4 (11.5-15.0); RED BLOOD CELL COUNT(AUTO) 3.89 MIL/uL (4.5-6.0); WHITE BLOOD COUNT (AUTO) 9.5 K/uL (4.3-11.0)
[2017-03-05 05:06] LABS: CALCIUM, SERUM 8.6 mg/dL (8.5-10.1); CREATININE 1.3 mg/dL (0.6-1.3); POTASSIUM 3.9 mmol/L (3.5-5.1)
[2017-03-05] MEDS: PIPERACILLIN /TAZOBACTAM 3.375 G in IV D5W 50 ML IV SCH ×4 (06:08→23:56)
[2017-03-05] MEDS: FIBERSOURCE HN 1,000 ML BOTTLE GT PRN (06:08)
--- NOTE | 2017-03-05 07:10 | NUR ---
RN INITIAL NOTES RECEIVED PT INTUBATED. ON [facility] VENT WITH FF SETTINGS: AC18, TV 550, FI02 50%, PEEP +8. PT SEDATED. ON VERSED AT 7MG/HR AND FENTANYL 100MCG/HR. OG IN PALCE. ON FIBERSOURCE AT 40ML/HR. WILL CLOSELY MONITOR FOR RESIDUAL. TYSON PICC LINE IN PLACE. CVP IN PLACE. FC IN PLACE. NO HEMATURIA NOTED. FOR WEANING TRIALS TODAY. WILL HOLD SEDATION. PT COMFORTABLE. BLE ELEVATED. WILL MONITOR.
[2017-03-05] MEDS: LACTOBACILLUS RHAMNOSUS GG 1 EACH CAP.SPRINK PO SCH ×2 (08:09→16:05)
[2017-03-05] MEDS: FAMOTIDINE/PF INJ 20 MG/2 ML VIAL IV SCH ×2 (08:09→20:56)
[2017-03-05] MEDS: VANCOMYCIN 1 GM in IV D5W 250 ML IV SCH ×2 (08:09→21:01)
[2017-03-05] MEDS: MULTIVITAMINS,THERAGRAN 1 UDTAB TABLET PO SCH (08:09)
[2017-03-05] MEDS: PROSOURCE / PROSTAT (PYXIS) 30 ML UDC PO SCH ×2 (08:09→16:05)
[2017-03-05] MEDS: RIFAXIMIN 550 MG TABLET PO SCH ×2 (08:09→16:05)
[2017-03-05] MEDS: PHENYTOIN SODIUM IV 50 MG/ML VIAL IV SCH ×2 (08:09→20:56)
[2017-03-05] MEDS: ASPIRIN 81 MG TAB.CHEW PO SCH (08:09)
[2017-03-05] MEDS: FOLIC ACID 1 MG TABLET PO SCH (08:09)
[2017-03-05] MEDS: HYDROGEL DRESSING 90 GM TUBE TP SCH (08:11)
--- NOTE | 2017-03-05 08:15 | NUR ---
RN NOTES 0715 PT VERSED ON HOLD FOR WEANING TRIALS. WILL CLOSELY MONITOR. 0805 PT AWAKE, DOESNT TRACK NOR FOLLOW SIMPLE COMMAND. WEANING TRIAL STARTED. PLACED ON SIMV4, TV550, PSV15, FIO2 40%, PEEP+5. NO RESPIRATORY DISTRESS NOTED. NO SOB NOTED. NO SIGNS OF PAIN NOTED. HOB ELEVATED. WILL CLOSELY MONITOR.
--- NOTE | 2017-03-05 08:43 | NUR ---
PT REC'D INTUBATED VIA 7.5 ETT AT 23CM AT THE LIP. DRAFTER PATENT DONE. BILAT. B/S AUSCULTATED. DIM B/S. SX'D SCANT AMT OF SECRETIONS. PT TAKEN OFF SEDATION BY JONA ALARCON. PLACED ON SIMV MODE ONCE PT BECAME AWAKE. PT IS ABLE TO FOLLOW SOME DIRECTIONS. VENT SETTINGS PER DR. SINGLETARY ORDER. VENT ALARMS SET AND AUDIBLE PER POLICY, VENT PLUGGED INTO RED OUTLET. NO RESP. DISTRESS NOTED. DORIAN TENORIO AWARE OF CHANGES. FREDRICKU BAG AT [facility]. WILL CONTINUE TO MONITOR PT. Addendum: 03/05/17 at 0846 by PAUL CLEMENTS RT Amended: Links added.
--- NOTE | 2017-03-05 11:00 | NUR ---
RN NOTES SEEN AND EXAMINED BY DR. LANDAVERDE. AWARE OF CURRENT LAB VALUES AND CXR RESULT. ALSO NOTIFIED REGARDING US ABDOMEN RESULT. PT ON WEANING TRIALS, CURRENT SETTINGS: SIM4, TV550, FI02 40%, PEEP+5, PSV15. KEPT HOB ELEVATED. FOR ABG. MD ORDERED US GUIDED PARACENTESIS. OBTAINED CONSENT FROM AFTER EXPLANATION OF PROCEDURE, RISK AND BENEFITS, VERBALIZED UNDERSTANDING.
[2017-03-05 11:05] LABS: ABG OXYGEN SATURATION 93.7 % (92.0-98.5); ABG PCO2 38.3 mmHg (35.0-45.0); ABG PH 7.434 (7.350-7.450); ABG PO2 70.8 mmHg (75.0-100.0); AaDO2 170.4 mmHg; MetHb 0.6 % (0.0-1.5); O2Hb 93.1 % (94.0-97.0); PEEP,BG 5 cm H2O; SITE, ABG Left Radial
--- NOTE | 2017-03-05 11:30 | NUR ---
RN NOTES ABG DONE RESULT RELAYED TO DR. SINGLETARY. ORDERED PLACE PT ON COOL AEROSOL AT 10LPM. PT HOB ELEVATED. SUCTIONED. WILL CLOSELY MONITOR. AT BEDSIDE. Addendum: 03/05/17 at 1159 by DORIAN SANDERS RN 1155 PT UNABLE TO TOLERATE RITA AEROSOL. PT AGITATED, BP ELEVATED SBP 160S AND DBP 100S, HR ELEVATED 120S AND RR ON 30S. ATIVAN GIVEN, INEFFECTIVE. PT PLACED BACK ON AC MODE ORDERED. WILL RESTART VERSED AND FENTANYL, WILL TITRATE ACCORDINGLY. WILL CLOSELY MONITOR.
--- NOTE | 2017-03-05 11:38 | NUR ---
PT PLACED ON COOL AEROSOL PER DR. SINGLETARY REQUEST. CUFF DEFLATED. PT PLACED ON 60% FIO2 @ 10LPM T-PIECE. PT IS AWAKE AND ALERT. PRODUCTIVE COUGH WITH WHITE/CLEAR SECRETIONS SUCTIONED FROM ETT. JONA ALARCON AWARE AND AT BEDSIDE DURING PROCEDURE. WILL CONTINUE TO MONITOR PT. Addendum: 03/05/17 at 1141 by PAUL CLEMENTS RT Amended: Links added.
--- NOTE | 2017-03-05 11:55 | NUR ---
PT PLACED BACK ON AC MODE AND ON SEDATION DUE TO PT BECOMING TOO AGITATED, TACHYPNEIC, TACHYCARDIC, AND HYPERTENSIVE. MOBILE APPLICATION ARCHITECT DONE. VENT PLUGGED INTO RED OUTLET. AMBU-BAG AT [facility].
[2017-03-05 12:01] LABS: INR 1.24 (0.87-1.13); PROTHROMBIN TIME 13.5 SECS (9.5-12.7)
[2017-03-05] MEDS: MIDAZOLAM HCL 100 MG in IV NS 0.9% 80 ML IV PRN (13:50)
--- NOTE | 2017-03-05 14:35 | NUR ---
RN NOTES PT FOR US GUIDED PARACENTESIS TODAY. PER MD, OK TO REMOVE MORE THAN 4L OF FLUIDS. ORDERED TO GIVE 4 DOSES OF ALBUMIN THEN GIVE LASIX ON LAST DOSE OF ALBUMIN. NOTED NAD CARRIED OUT. AWARE.
--- NOTE | 2017-03-05 14:37 | NUR ---
RN NOTES CALLED DR. LANDAVERDE TO CLARIFY IF SHE WANTS TO ORDER CS (ASCITES FLUID) AFTER PARACENTESIS. MD ORDERED CELL COUNT, GRAM STAIN, PROTEIN, LDH AND GLUCOSE. NOTED AND CARRIED OUT.
[2017-03-05] MEDS: FENTANYL CITRAT IV 2,500 MCG in IV NS 0.9% 200 ML IV PRN ×2 (14:52→15:12)
--- NOTE | 2017-03-05 15:30 | NUR ---
RN NOTES US GUIDED PARACENTESIS DONE. REMOVED [id number]. NO RESPIRATORY DISTRESS NOTED. NO SOB NOTED. NO SIGNS OF PAIN NOTED. PT TOLERATED PROCEDURE WELL. SPECIMEN SENT TO LAB FOR CYTOLOGY.
[2017-03-05] MEDS: ALBUMIN 25% 25 GM in PREMIX 1 EA IV SCH ×2 (15:45→20:55)
--- NOTE | 2017-03-05 18:38 | NUR ---
RN CLOSING NOTES PT REMAINS INTUBATED, ON MECH VENT. NO RESPIRATORY DISTRESS NOTED. NO SIGNS OF PAIN NOTED. KEPT HOB NOTED. OG IN PLACE. ON GTF, FAIRLY TOLERATED. TYSON PICC IN PLACE. REMAINS ON VERSED AND FENTANYL. FC IN PLACE. TX ORDERED. KEPT CLEAN AND DRY. REPOSITIONED Q2. KEPT BLE ELEVATED. KEPT COMFORTABLE. WILL ENDORSE FOR CONTINUITY OF CARE.
--- NOTE | 2017-03-05 19:33 | NUR ---
RT PT RECEIVED INTUBATED W/ A 7.0 EET @ 23 CM LIP ON [facility] VENT WITH NOTED SETTINGS. VENT PLUGGED IN TO RED OUTLET. ETT PATENT AND SECURE VIA ANCHOR FAST. SAND MILL OPERATOR CORE SAND DONE. AMBU BAG AT [facility]. ALARMS SET AND AUDIBLE. DISCONNECT ALARM VERIFIED. WILL CONTINUE TO MONITOR. Addendum: 03/05/17 at 1936 by FARZANA DAVENPORT RT Amended: Links added.
--- NOTE | 2017-03-05 20:00 | NUR ---
FINANCE ADVISOR - NOTES - RECEIVED PT INTUBATED. ON [facility] VENT WITH FF SETTINGS: AC18, TV 550, FI02 40%, PEEP +5. PT SEDATED. ON VERSED AT 7MG/HR AND FENTANYL 100MCG/HR. OGT IN PALCE. ON FIBERSOURCE AT 40ML/HR, RESIDUALS OF 150. WILL CLOSELY MONITOR FOR RESIDUAL. TYSON PICC LINE IN PLACE. CVP IN PLACE @ 7. FC IN PLACE. NO HEMATURIA NOTED. PT COMFORTABLE. BLE ELEVATED. WILL MONITOR.
[2017-03-06] VITALS (53 sets, daily range): BP systolic 97–175; BP diastolic 57–113
[2017-03-06] MEDS: LORAZEPAM INJ 2 MG/ML VIAL IV PRN ×2 (02:16→18:10)
[2017-03-06] MEDS: ALBUMIN 25% 25 GM in PREMIX 1 EA IV SCH ×2 (02:16→09:16)
[2017-03-06] MEDS: MIDAZOLAM HCL 100 MG in IV NS 0.9% 80 ML IV PRN ×2 (04:53→21:07)
[2017-03-06 04:57] LABS: BASOPHILS % (AUTO) 0.2 % (0.0-2.0); EOSINOPHILS # (AUTO) 0.3 /CMM (0.0-0.7); EOSINOPHILS % (AUTO) 3.6 % (0.0-6.0); HEMATOCRIT 35 % (39-51); HEMOGLOBIN 12.2 g/dL (13.5-17.5); LYMPHOCYTES # (AUTO) 0.8 /CMM (0.8-4.8); LYMPHOCYTES % (AUTO) 10.7 % (20.0-44.0); MEAN CORPUSCULAR HEMOGLOBIN 33 PG (26.0-33.0); MEAN CORPUSCULAR HGB CONC 34 g/dl (31.0-36.0); MEAN CORPUSCULAR VOLUME 95 fL (80-96); MONOCYTES # (AUTO) 0.6 /CMM (0.1-1.30); MONOCYTES % (AUTO) 7.9 % (2.0-12.0); NEUTROPHILS # (AUTO) 6.2 /CMM (1.8-8.9); NEUTROPHILS % (AUTO) 77.6 % (43.0-81.0); PLATELET COUNT (AUTO) 312 /CMM (150-450); RED BLOOD CELL COUNT(AUTO) 3.71 MIL/uL (4.5-6.0); WHITE BLOOD COUNT (AUTO) 7.9 K/uL (4.3-11.0)
[2017-03-06] MEDS: METRONIDAZOLE 500 MG TABLET PO SCH ×3 (05:04→20:22)
[2017-03-06] MEDS: PIPERACILLIN /TAZOBACTAM 3.375 G in IV D5W 50 ML IV SCH ×3 (05:04→17:00)
[2017-03-06 05:14] LABS: CALCIUM, SERUM 8.6 mg/dL (8.5-10.1); CREATININE 1.3 mg/dL (0.6-1.3); PHOSPHORUS 3.3 mg/dL (2.5-4.9); POTASSIUM 3.6 mmol/L (3.5-5.1)
[2017-03-06 05:41] LABS: BAND % (MANUAL) 8 % (0.0-5.0); EOSINOPHILS % (MANUAL) 1 % (0-4); LYMPHOCYTES % (MANUAL) 10 % (16-48); MONOCYTES % (MANUAL) 10 % (0-11.0); NEUTROPHILS % (MANUAL) 71 (42-76)
[2017-03-06] MEDS: IV NS 0.9% 250 ML IV PRN (06:42)
[2017-03-06] MEDS: FIBERSOURCE HN 1,000 ML BOTTLE GT PRN (06:50)
--- NOTE | 2017-03-06 07:31 | NUR ---
INITIAL LEAD ESTHETICIAN NOTE RCVD PT SEDATED, INTUBATED, ETT 7.0 23 AT LIP. TOLERATING ORDERED VENT SETTINGS. SR ON TELE. OG TUBE PLACEMENT VERIFIED BY AUSCULTATION/ASPIRATIO. 80 ML RESIDUAL OBTAINED. JASSO DRAINING YELLOW URINE. IV SITES C/D/I/PATENT. NO S/O INFILTRATION/PHLEBITIS OBSERVED. IVF INFUSING TKO. WILL CONTINUE TO MONITOR PT FOR SAFETY AND COMFORT. CALL LIGHT WITHIN REACH. BED IN LOW AND LOCKED POSITION.
[2017-03-06] MEDS: PHENYTOIN SODIUM IV 50 MG/ML VIAL IV SCH ×2 (09:16→20:22)
[2017-03-06] MEDS: FOLIC ACID 1 MG TABLET PO SCH (09:16)
[2017-03-06] MEDS: ASPIRIN 81 MG TAB.CHEW PO SCH (09:16)
[2017-03-06] MEDS: FAMOTIDINE/PF INJ 20 MG/2 ML VIAL IV SCH ×2 (09:16→20:22)
[2017-03-06] MEDS: MULTIVITAMINS,THERAGRAN 1 UDTAB TABLET PO SCH (09:16)
[2017-03-06] MEDS: RIFAXIMIN 550 MG TABLET PO SCH ×2 (09:16→16:59)
[2017-03-06] MEDS: LACTOBACILLUS RHAMNOSUS GG 1 EACH CAP.SPRINK PO SCH ×2 (09:16→16:59)
[2017-03-06] MEDS: HYDROGEL DRESSING 90 GM TUBE TP SCH (09:17)
[2017-03-06] MEDS: VANCOMYCIN 1 GM in IV D5W 250 ML IV SCH ×2 (09:17→20:24)
[2017-03-06] MEDS: PROSOURCE / PROSTAT (PYXIS) 30 ML UDC PO SCH ×2 (09:22→17:00)
[2017-03-06] MEDS ORDERED: FUROSEMIDE 40 MG/4 ML VIAL IV ONE (10:00)
--- NOTE | 2017-03-06 11:24 | NUR ---
SHIRT TRIMMER NOTE PT'S AT BEDSIDE UPDATED ON PT'S CONDITION. DR. SINGLETARY IN UNIT ORDERED TO START WEANING TRIAL AT 1300. SEDATION TITRATED OFF. PT ABLE TO OPEN EYES, BUT REMAINS DROWSY. WILL CONTINUE TO MONITOR.
[2017-03-06] MEDS: ACETAMINOPHEN 325 MG TABLET PO PRN ×3 (12:43→23:24)
--- NOTE | 2017-03-06 13:11 | NUR ---
BOOM STICK MAN NOTE WEANING TRIAL STARTED PT TOLERATING SIMV MODE AT THIS TIME. WILL CONTINUE TO MONITOR. PT'S AT BEDSIDE.
[2017-03-06 14:28] LABS: ABG BASE EXCESS 0.7 mmol/L; ABG OXYGEN SATURATION 98.5 % (92.0-98.5); ABG PCO2 32.6 mmHg (35.0-45.0); ABG PH 7.477 (7.350-7.450); ABG PO2 196.4 mmHg (75.0-100.0); AaDO2 51.3 mmHg; COHb 0.3 % (0.5-1.5); MetHb 0.9 % (0.0-1.5); O2Hb 97.3 % (94.0-97.0); PEEP,BG 5 cm H2O; SITE, ABG Right Radial; VT, ABG 550 mL
--- NOTE | 2017-03-06 15:45 | NUR ---
RT NOTE: Patient received orally intubated with 7.0 ETT secured at 23cm mid lip line on PB 840 vent. ETT moved from left to right side of mouth throughout shift. Alarms verified and audible. Suctioned moderate amount of thin clear secretions. Bilateral B/S noted. Per 's order patient was placed on SIMV with ABG done and reported. The placed on 40% Cool aerosol as tolerated. Ambu bag at [facility].
--- NOTE | 2017-03-06 18:24 | NUR ---
CHURN OPERATOR MARGARINE NOTE PT BECAME ANXIOUS AFTER BEING CLEANED, ATIVAN ADMINISTERED ORDERED. WILL CONTINUE TO MONITOR.
--- NOTE | 2017-03-06 18:48 | NUR ---
ENDING COOK JELLY PT AWAKE AND ALERT, FOLLOWING COMMANDS, ON COOL AEROSOL AT THIS TIME TOLERATING WELL. ST ON TELE. OG TUBE IN PLACE AND JASSO DRAINING YELLOW URINE. IV SITES C/D/I/PATENT. IVF INFUSING TKO. PT'S CARE WILL BE ENDORSED TO CAN MAKER RN FOR CONTINUITY OF CARE.
--- NOTE | 2017-03-06 20:00 | NUR ---
RN NOTES INITIAL ASSESSMENT DONE; RECEIVED ON BED WITH HOB AT 40 ANGLE, ON T PIECE AT 40%, ETT TAPED AND SECURED WITH CUFF INTACT; TF VIA OGT, TF TOLERATED WELL; JASSO CATH TAPED TO THIGH TO BAG BY GRAVITY; BILAT DVT PUMPS ON, HEELS OFFLOADED; RR 30-35, PX AWAKE, FOLLOWS SIMPLE COMMANDS BY SQUEEZING HAND THEN LETTING GO WITH COMMAND; DENIED SOB BUT RR AT 35, TACHYCARDIC WITH INCREASED BP. DISCUSSED PLAN OF CARE WITH PATIENT.
--- NOTE | 2017-03-06 21:00 | NUR ---
RN NOTES PX CONTINUED TO BE TACHYPNEIC WITH RR HIGH 40, ALTHOUGH O2 SAT IS NORMAL, HE IS ALSO TACHYCARDIC WITH INCREASED BP, CALLED DR. HE UNLEAVENED DOUGH MIXER INFORMED OF CONDITION, ORDERED TO PLACE BACK TO VENT AND RESUME AM FENTANYL AND VERSED DRIPS. RT MADELINE MADE AWARE.
[2017-03-06] MEDS: FENTANYL CITRAT IV 2,500 MCG in IV NS 0.9% 200 ML IV PRN (21:08)
--- NOTE | 2017-03-06 21:10 | NUR ---
RT Pt not tolerating CA weaning. pt tachycardic and tachypneic. Pt placed back on AC per Dr Last. Will cont to monitor closely. Addendum: 03/06/17 at 2112 by MADELINE HARDY RT Amended: Links added.
[2017-03-07] VITALS (37 sets, daily range): BP systolic 112–165; BP diastolic 75–97
[2017-03-07] MEDS: PIPERACILLIN /TAZOBACTAM 3.375 G in IV D5W 50 ML IV SCH ×4 (00:28→17:01)
--- NOTE | 2017-03-07 02:02 | NUR ---
RN NOTES CONDITION AND NEURO STATUS UNCHANGED; SUCTIONED ORALLY AND VIA ETT, REPOSITIONED IN BED; VITALS WNL.
--- NOTE | 2017-03-07 02:30 | NUR ---
RN NOTES HAD 1 LARGE BM, BROWNISH GREEN SOFT, CLEANED PX AND CHANGED GOWN AND BED LINENS, PERICARE RENDERED, CHANGED MEPILEX DRESSING ON THE SACRAL AREA, PROCEDURE TOLERATED.
[2017-03-07] MEDS: IV NS 0.9% 250 ML IV PRN (03:13)
--- NOTE | 2017-03-07 04:29 | NUR ---
RN NOTES CONDITION UNCHANGED; THERE WAS NO WAVE ON THE CVP MONITOR SINCE 7 PM 03/06/17 DESPITE MULTIPLE ATTEMPTS TO ZERO IT; HOWEVER AT 4 AM, I WAS ABLE TO ZERO IT AND FOUND SOME WAVEFORM WHICH WERE POSITIONAL, READ AT 3 ON THE CVP. TF TOLERATED WELL, SUCTIONED ORALLY AND VIA ETT; REPOSITIONED.
[2017-03-07 04:40] LABS: BASOPHILS # (AUTO) 0.1 /CMM (0.0-0.2); BASOPHILS % (AUTO) 0.9 % (0.0-2.0); EOSINOPHILS # (AUTO) 0.2 /CMM (0.0-0.7); EOSINOPHILS % (AUTO) 2.3 % (0.0-6.0); HEMATOCRIT 38 % (39-51); HEMOGLOBIN 13.1 g/dL (13.5-17.5); LYMPHOCYTES # (AUTO) 1.1 /CMM (0.8-4.8); LYMPHOCYTES % (AUTO) 13.2 % (20.0-44.0); MEAN CORPUSCULAR HEMOGLOBIN 32 PG (26.0-33.0); MEAN CORPUSCULAR HGB CONC 34 g/dl (31.0-36.0); MEAN CORPUSCULAR VOLUME 95 fL (80-96); MONOCYTES % (AUTO) 12.4 % (2.0-12.0); NEUTROPHILS # (AUTO) 5.7 /CMM (1.8-8.9); NEUTROPHILS % (AUTO) 71.2 % (43.0-81.0); PLATELET COUNT (AUTO) 345 /CMM (150-450); RDW COEFFICIENT OF VARIATION 14.6 (11.5-15.0); RED BLOOD CELL COUNT(AUTO) 4.04 MIL/uL (4.5-6.0); WHITE BLOOD COUNT (AUTO) 8.1 K/uL (4.3-11.0)
[2017-03-07 04:56] LABS: CALCIUM, SERUM 8.6 mg/dL (8.5-10.1); CREATININE 1.3 mg/dL (0.6-1.3); MAGNESIUM 2.2 mg/dL (1.8-2.4); PHOSPHORUS 4.1 mg/dL (2.5-4.9); POTASSIUM 3.4 mmol/L (3.5-5.1)
[2017-03-07] MEDS: METRONIDAZOLE 500 MG TABLET PO SCH ×2 (05:25→12:00)
--- NOTE | 2017-03-07 06:42 | NUR ---
RN NOTES CONDITION AND NEURO STATUS UNCHANGED; VITAL SIGNS WITHIN NORMAL LIMITS; SUCTIONED ORALLY AND VIA ETT; NO BM, NO NEW SKIN BREAKDOWN; WILL ENDORSE TO NEXT RN.
--- NOTE | 2017-03-07 07:08 | NUR ---
SUPERVISOR OF OFFICIALS NOTES RECEIVED PATIENT SEDATED , RESPONSIVE TO VERBAL STIMULI ABLE TO FOLLOWS SIMPLE COMMANDS , NOT IN ACUTE DISTRESS , RESPIRATIONS EVEN AND UNLABORED WITH SPO2 OF 100% VIA MECHANICAL VENTILATOR SETTINGS ORDERED , ENDOTRACHEAL TUBE 7.0/[address] , ST 105 ON BEDSIDE MONITOR , CVP 2 , ORAL GASTRIC TUBE IN PLACE VERIFIED PLACEMENT VIA AUSCULTATION WITH FIBERSOURCE @ 40ML/HR INFUSING WELL WITH 5 ML RESIDUALS NOTED , FC DRAINING WELL VIA GRAVITY WITH CLOUDY YELLOW URINE , ON KCI MATTRESS , RIGHT UPPER ARM PICC LINE WITH NS @ TKO , VERSED @ 4MG/HR , FENTANYL @ 3MCG/KG/HR INFUSING WELL , ALL NEEDS ATTENDED , BED ON LOW AND LOCKED POSITION , SIDE RAILS X2 ,HOB @ 45 , WILL CONTINUE TO MONITOR.
--- NOTE | 2017-03-07 08:00 | NUR ---
CARDIAC RN NOTES SEEN AND EVALUATED BY DR HOLDEN , DISCUSSED PT LABS , CVP OF 2 , AFEBRILE , BP OF SBP OF 150'S - 160'S , SEDATED WITH VERSED @ 4MG/HR , FENTANYL @ 3MCG/KG/HR , PATIENT ON T PIECE ORDERED FROM 4PM - 8PM PLACED BACKTO AC MODE DUE TO TACHYPNEA , TACHYCARDIA AND ELEVATED BP . AWARE .
[2017-03-07] MEDS: PROSOURCE / PROSTAT (PYXIS) 30 ML UDC PO SCH ×2 (08:07→16:06)
[2017-03-07] MEDS: LACTOBACILLUS RHAMNOSUS GG 1 EACH CAP.SPRINK PO SCH ×2 (08:07→16:06)
[2017-03-07] MEDS: MULTIVITAMINS,THERAGRAN 1 UDTAB TABLET PO SCH (08:07)
[2017-03-07] MEDS: FAMOTIDINE/PF INJ 20 MG/2 ML VIAL IV SCH ×2 (08:07→21:55)
[2017-03-07] MEDS: PHENYTOIN SODIUM IV 50 MG/ML VIAL IV SCH ×2 (08:07→22:00)
[2017-03-07] MEDS: RIFAXIMIN 550 MG TABLET PO SCH ×2 (08:07→16:06)
[2017-03-07] MEDS: FOLIC ACID 1 MG TABLET PO SCH (08:07)
[2017-03-07] MEDS: ASPIRIN 81 MG TAB.CHEW PO SCH (08:07)
[2017-03-07] MEDS: HYDROGEL DRESSING 90 GM TUBE TP SCH (08:08)
[2017-03-07] MEDS: VANCOMYCIN 1 GM in IV D5W 250 ML IV SCH (08:08)
[2017-03-07] MEDS: CARVEDILOL 3.125 MG TABLET PO SCH ×2 (08:31→21:56)
--- NOTE | 2017-03-07 10:01 | NUR ---
OUTSIDE INSTALLATION MACHINIST NOTES DR LANDAVERDE SEEN AND EVALUATED THE PT , PT IS SEDATED WITH VERSED AND FENTANYL , ABLE TO FOLLOW SIMPLE COMMANDS , NEUROLOGICALLY INTACT , CVP 1-2 , TOLERATING OGT FEEDING , AFEBRILE , V/S STABLE , PT ON T PIECE YESTERDAY FROM 4PM TO 8 PM PLACED BACK TO AC MODE @ 1999 DUE TO TACHYPNEA , TACHYCARDIA AND ELEVATED BP , MD AWARE .
[2017-03-07] MEDS: POTASSIUM CHLORIDE 20 MEQ POWDER PACKET NG SCH ×2 (10:41→11:32)
--- NOTE | 2017-03-07 10:41 | NUR ---
PRESTIDIGITATOR NOTES MAGNESIUM OXIDE 800MG NON ADMIN , ORDERED @ BY DR CASTILLO ONE TIME ORDER . VERIFIED WITH ALCIRA PHARMACIST , PER PHARMACIST DON'T ADMINISTER MEDICATION .
--- NOTE | 2017-03-07 11:00 | NUR ---
WINE PASTEURIZER NOTES VERSED AND FENTANYL DRIP OFF FOR SEDATION VACATION , PT IS SEDATED , AROUSABLE TO VERBAL STIMULI , ABLE TO FOLLOWS COMMANDS , WILL CONTINUE TO MONITOR .
[2017-03-07] MEDS ORDERED: POTASSIUM CHLORIDE 20 MEQ TAB.PRT.SR PO ONE (11:30)
[2017-03-07] MEDS: ACETAMINOPHEN 325 MG TABLET PO PRN (11:44)
[2017-03-07] MEDS: MIDAZOLAM HCL 100 MG in IV NS 0.9% 80 ML IV PRN (14:33)
[2017-03-07] MEDS: FENTANYL CITRAT IV 2,500 MCG in IV NS 0.9% 200 ML IV PRN (22:05)
[2017-03-08] VITALS (46 sets, daily range): BP systolic 112–181; BP diastolic 71–126
[2017-03-08 04:49] LABS: BASOPHILS # (AUTO) 0.2 /CMM (0.0-0.2); EOSINOPHILS # (AUTO) 0.3 /CMM (0.0-0.7); EOSINOPHILS % (AUTO) 3.3 % (0.0-6.0); HEMATOCRIT 38 % (39-51); HEMOGLOBIN 12.9 g/dL (13.5-17.5); LYMPHOCYTES # (AUTO) 1.7 /CMM (0.8-4.8); LYMPHOCYTES % (AUTO) 20.3 % (20.0-44.0); MEAN CORPUSCULAR HEMOGLOBIN 32 PG (26.0-33.0); MEAN CORPUSCULAR HGB CONC 34 g/dl (31.0-36.0); MEAN CORPUSCULAR VOLUME 95 fL (80-96); MONOCYTES # (AUTO) 1.2 /CMM (0.1-1.30); MONOCYTES % (AUTO) 14.7 % (2.0-12.0); NEUTROPHILS # (AUTO) 4.9 /CMM (1.8-8.9); NEUTROPHILS % (AUTO) 58.7 % (43.0-81.0); PLATELET COUNT (AUTO) 337 /CMM (150-450); RDW COEFFICIENT OF VARIATION 14.4 (11.5-15.0); RED BLOOD CELL COUNT(AUTO) 4.01 MIL/uL (4.5-6.0); WHITE BLOOD COUNT (AUTO) 8.3 K/uL (4.3-11.0)
[2017-03-08 04:51] LABS: CALCIUM, SERUM 8.4 mg/dL (8.5-10.1); CREATININE 1.1 mg/dL (0.6-1.3); POTASSIUM 3.7 mmol/L (3.5-5.1)
--- NOTE | 2017-03-08 05:00 | NUR ---
MATERIALS ASSISTANT - PT. REMAINED ON VERSED GTT. AT 4 MG/HR & FENTANYL GTT. AT 0.3076 MCG/KG/MIN. ALL GTTS ON BLOOD TESTER FOWL PUMPS. FENTANYL GTT. CHANGED OUT AT 22:30 PM LAST NIGHT. PT.IS AWAKE & CAN FOLLOW COMMANDS AT THESE RATES. PUPILS ARE EQUAL/REACTIVE & SIZE 7. BILAT. +OGT W/GOOD PLACEMENT, HAS FIBERSOURCE INFUSING AT 65CC/HR/GOAL. JASSO CATH TO GRAVITY W/GOOD UOP. CVP ATTACHED TO RUE PICC LINE. READINGS AT 2-11MMHG. COOLING MEASURES TO PT. W/TEMPS AT 99'S TO LOW 100'S. DR. SINGLETARY'S ORDERS TODAY ARE POSSIBLE VENT WEANING. CONT.POC.
[2017-03-08] MEDS ORDERED: FIBERSOURCE HN 1,000 ML BOTTLE GT PRN (06:35)
--- NOTE | 2017-03-08 08:33 | NUR ---
RT PT PLACED ON (CPAP, 5, 40%, PS 12) PER DR. SINGLETARY ORDERS. PT IS AWAKE AND RESPONDS TO COMMANDS. VENT ALARMS ARE SET AND AUDIBLE. NO RESPIRATORY DISTRESS NOTED AT THIS TIME, WILL CONTINUE TO MONITOR. Addendum: 03/08/17 at 1102 by SEBASTIAN LEUNG RT Amended: Links added.
[2017-03-08] MEDS: FAMOTIDINE/PF INJ 20 MG/2 ML VIAL IV SCH ×2 (08:44→21:30)
[2017-03-08] MEDS: PHENYTOIN SODIUM IV 50 MG/ML VIAL IV SCH ×2 (08:46→21:32)
[2017-03-08] MEDS: FOLIC ACID 1 MG TABLET PO SCH (08:47)
[2017-03-08] MEDS: MULTIVITAMINS,THERAGRAN 1 UDTAB TABLET PO SCH (08:47)
[2017-03-08] MEDS: RIFAXIMIN 550 MG TABLET PO SCH ×2 (08:47→17:00)
[2017-03-08] MEDS: CARVEDILOL 3.125 MG TABLET PO SCH ×2 (08:47→21:31)
[2017-03-08] MEDS: ASPIRIN 81 MG TAB.CHEW PO SCH (08:47)
[2017-03-08] MEDS: PROSOURCE / PROSTAT (PYXIS) 30 ML UDC PO SCH ×2 (08:50→17:00)
[2017-03-08] MEDS: LACTOBACILLUS RHAMNOSUS GG 1 EACH CAP.SPRINK PO SCH ×2 (08:50→17:00)
[2017-03-08] MEDS: HYDROGEL DRESSING 90 GM TUBE TP SCH (08:51)
[2017-03-08 10:04] LABS: ABG BASE EXCESS -1.3 mmol/L; ABG OXYGEN SATURATION 96.1 % (92.0-98.5); ABG PCO2 30.3 mmHg (35.0-45.0); ABG PH 7.466 (7.350-7.450); ABG PO2 84.2 mmHg (75.0-100.0); AaDO2 166.2 mmHg; COHb 0.3 % (0.5-1.5); MetHb 0.4 % (0.0-1.5); O2Hb 95.4 % (94.0-97.0); SITE, ABG Right Radial
[2017-03-08] MEDS ORDERED: DC PROPOFOL WHEN EXTUBATED XX PRN (12:05)
--- NOTE | 2017-03-08 12:07 | NUR ---
PT EXTUBATED PER DR. SINGLETARY'S ORDER AT 1207
[2017-03-09] VITALS (20 sets, daily range): BP systolic 118–162; BP diastolic 36–102
[2017-03-09] MEDS ORDERED: hydrALAZINE HCL IV 20 MG VIAL ONE (00:20)
[2017-03-09] MEDS ORDERED: hydrALAZINE HCL IV 20 MG VIAL IV PRN (00:30)
--- NOTE | 2017-03-09 01:00 | NUR ---
INSTALLATION AND SERVICE TECHNICIAN - PT. WAS EXTUBATED YESTERDAY & IS DOING WELL ON /NC. PT'S STAYED FOR AN HOUR & LEFT A BOTTLE OF NASAL SPRAY AT BS. RN EXPLAINED TO THAT WHILE IN THE HOSPITAL, WE CANNOT GIVE AN MEDS OTHER THAN WHAT'S ISSUED FROM PHARMACY. PT. HAD 2 COMPLETE BEDBATHS DUE TO [employer]. PT. IS VERY "ANTSY" & HAD HIS LEGS OVER THE BED. PT. REMAINS IN BILAT. SOFT WRIST RESTRAINTS PER SAFETY PROTOCOL. DONNY FINNEY WAS PAGED LAST NIGHT DUE TO PT'S SBP'S >150 TO 180'S. HYDRALAZINE 10MG/IVP WAS ADM. AT 00:30. SBP'S STILL REMAINED IN THE 150'S. CVP STILL REMAINS W/READINGS OF 1 TO 6 MMHG. CONT. POC.
[2017-03-09 05:18] LABS: BASOPHILS # (AUTO) 0.2 /CMM (0.0-0.2); EOSINOPHILS # (AUTO) 0.1 /CMM (0.0-0.7); EOSINOPHILS % (AUTO) 0.8 % (0.0-6.0); HEMATOCRIT 40 % (39-51); HEMOGLOBIN 13.7 g/dL (13.5-17.5); MEAN CORPUSCULAR HEMOGLOBIN 33 PG (26.0-33.0); MEAN CORPUSCULAR HGB CONC 34 g/dl (31.0-36.0); MEAN CORPUSCULAR VOLUME 95 fL (80-96); MONOCYTES # (AUTO) 1.2 /CMM (0.1-1.30); MONOCYTES % (AUTO) 11.6 % (2.0-12.0); NEUTROPHILS % (AUTO) 66.6 % (43.0-81.0); PLATELET COUNT (AUTO) 358 /CMM (150-450); RDW COEFFICIENT OF VARIATION 14.3 (11.5-15.0); RED BLOOD CELL COUNT(AUTO) 4.21 MIL/uL (4.5-6.0); WHITE BLOOD COUNT (AUTO) 10.5 K/uL (4.3-11.0)
[2017-03-09 05:36] LABS: CALCIUM, SERUM 9.3 mg/dL (8.5-10.1); CREATININE 1.2 mg/dL (0.6-1.3); PHOSPHORUS 3.6 mg/dL (2.5-4.9); POTASSIUM 3.7 mmol/L (3.5-5.1)
--- NOTE | 2017-03-09 07:32 | NUR ---
VOLUMETRIC WEIGHER - PT. STILL REMAINS RESTLESS. NO S/S OF SEIZURES, HOWEVER PT. WAS NOTICED SHAKING FOR A FEW SECONDS LAST NIGHT. PT. CAN ANSWER QUESTIONS ASKED, BUT IS STILL ALITTLE DISORIENTED. CONT. POC. REPORT ENDORSED TO ELY Mcallister
--- NOTE | 2017-03-09 08:30 | NUR ---
DR. MARISCAL ORDERS FOR NURSING SWALLOW EVAL AND THEN START CARDIAC DIET IF NO PROBLEMS SWALLOWING. I HAVE HIM FEW SPOONS OF PUDDING PT ABLE TO SWALLOW WELL NO S/S OF ASPIRATION. GAVE HIM SIPS OF WATER, PT SWALLOWS WELL NO S/S OF ASPIRATION NO COUGH.
[2017-03-09] MEDS: LACTOBACILLUS RHAMNOSUS GG 1 EACH CAP.SPRINK PO SCH ×2 (08:37→16:36)
[2017-03-09] MEDS: CARVEDILOL 3.125 MG TABLET PO SCH ×2 (08:37→20:42)
[2017-03-09] MEDS: MULTIVITAMINS,THERAGRAN 1 UDTAB TABLET PO SCH (08:37)
[2017-03-09] MEDS: ASPIRIN 81 MG TAB.CHEW PO SCH (08:37)
[2017-03-09] MEDS: PANTOPRAZOLE 40 MG TABLET.DR PO SCH (08:37)
[2017-03-09] MEDS: RIFAXIMIN 550 MG TABLET PO SCH ×2 (08:37→16:36)
[2017-03-09] MEDS: FOLIC ACID 1 MG TABLET PO SCH (08:37)
[2017-03-09] MEDS: PROSOURCE / PROSTAT (PYXIS) 30 ML UDC PO SCH ×2 (08:38→16:36)
[2017-03-09] MEDS: HYDROGEL DRESSING 90 GM TUBE TP SCH (08:38)
[2017-03-09] MEDS: PHENYTOIN SODIUM IV 50 MG/ML VIAL IV SCH ×2 (08:38→20:41)
[2017-03-09] MEDS ORDERED: MULTIVITAMIN LIQ 5 ML UDC GT SCH (09:00)
--- NOTE | 2017-03-09 09:00 | NUR ---
PT IS MORE AWAKE ALERT AND ABLE TO COMMUNICATE BETTER THAN YESTERDAY. HE ATE 100% OF BREAKFAST, GREAT APPETITE, NO S/S OF ASPIRATION WHILE EATING BREAKFAST. HE IS SHAKING, POSSIBLY WITHDRAWAL SYMPTOMS, HAS A DIFFICULT TIME FEEDING HIMSELF WITHOUT SPILLING, 1 PERSON ASSIST. PT'S ARRIVES AND UPDATED ABOUT HIS CONDITION, DR. MARISCAL PLACES ORDER STABLE TO TRANSFER TO TELE.
[2017-03-09] MEDS ORDERED: OXYMETAZOLINE HCL NASAL SPRAY 30 ML BOTTLE NS PRN (10:00)
--- NOTE | 2017-03-09 12:53 | NUR ---
PT STABLE, AND TRANSFERRED TO TELE PER DR. MARISCAL'S ORDERS. REPORT GIVEN TO MILY FOR CONTINUITY OF CARE, ALL BELONGINGS TRANSFERRED WITH PATIENT. 2 RNS TRANSFERRED TO TELE [phone].
--- NOTE | 2017-03-09 13:00 | NUR ---
FARM MACHINERY ASSEMBLERPILLOWCASE SEWER/ADMISSION NOTE PATIENT IS BEING TRANSFERRED FROM ICU TO TELE. PATIENT IS ALERT AND ORIENTED x2. NO PAIN AT THIS TIME. NO SOB OR DISTRESS NOTED. CALL LIGHT WITHIN REACH. SAFETY MEASURES IMPLEMENTED. SEIZURE PRECAUTIONS IMPLEMENTED DUE TO ALCOHOL WITHDRAWAL. ON 2L/MIN OXYGEN VIA NASAL CANNULA. SPEAKS BULGARIAN/GIBRALTARIAN AND NICARAGUAN. EXTUBATED ON 03/08/2017. SWALLOWING WELL. IV INTACT AND PATENT NO REDNESS OR SWELLING NOTED. PICC LINE INTACT AND PATENT NO REDNESS OR SWELLING NOTED. HAS STAGE 2 SACRAL WOUND, HYDROGEL AND MEPILEX TREATMENT. JASSO CATHETER IN PLACE NO CLOUDY OR SEDIMENT NOTED. WILL CONTINUE TO MONITOR
--- NOTE | 2017-03-09 18:47 | NUR ---
COMPUTER METHODS ANALYST CLOSING NOTE PATIENT IS ALERT AND ORIENTED x2. NO PAIN AT THIS TIME. NO SOB OR DISTRESS NOTED. CALL LIGHT WITHIN REACH AT ALL TIMES. SAFETY MEASURES IMPLEMENTED. SEIZURE PRECAUTIONS IMPLEMENTED. PATIENT IS A LITTLE CONFUSED PER , ABLE TO REORIENT. REFUSING OXYGEN AT THIS TIME. JASSO CATHETER IN PLACE, INTACT, NO CLOUDY APPEARANCE, NO SEDIMENT NOTED. ABLE TO COMMUNICATE NEEDS. IV INTACT AND PATENT NO REDNESS OR SWELLING NOTED. PICC LINE INTACT AND PATENT. WILL ENDORSE TO CAT OPERATOR NURSE
--- NOTE | 2017-03-09 19:40 | NUR ---
HOTEL OR MOTEL MANAGER INITIAL NOTES RECEIVED PT IN BED WITH AT BEDSIDE. NO SIGNS OF SOB OR DISTRESS, ON 2L NC BREATHING EVENLY AND UNLABORED.COMPLAINTS OF HEADACHE, REQUESTING TYLENOL. DONNY WOODRUFF SUPERVISOR RECLAMATION WAS CONTACTED FOR ORDER. JASSO CATHETER INTACT AND DRAINING. IV ACCESS INTACT AND PATENT. PT HAS MOMENTS OF CONFUSION, WILL REORIENT NEEDED. BED IS IN LOW AND LOCKED POSITION, CALL LIGHT WITHIN REACH. WILL CONTINUE TO MONITOR PT
[2017-03-09] MEDS: ACETAMINOPHEN 325 MG TABLET PO PRN (20:10)
--- NOTE | 2017-03-09 21:05 | NUR ---
BOX OFFICE AGENT NOTES PT STATE OF CONFUSION INCREASED. RANJAN TESTING ENGINEER WAS NOTIFIED. AMMONIA LEVEL TO BE DRAWN.
--- NOTE | 2017-03-09 22:20 | NUR ---
PUBLIC POLICY PROFESSOR NOTES AMMONIA LEVELS RESULTED WNL; 24. BLOOD SUGAR WAS TAKEN, ALSO WNL. PT IS ATTEMPTING TO PULL OUT JASSO CATHETER. RANJAN BOAT WRAPPER NOTIFIED, ATIVAN WAS ORDERED
[2017-03-09] MEDS: LORAZEPAM INJ 2 MG/ML VIAL IV PRN (22:27)
[2017-03-10] VITALS: BP 145/87
--- NOTE | 2017-03-10 00:30 | NUR ---
SUPERVISOR SOAKERS NOTES TEMP WAS 99.1. COOLING MEASURES WERE INITIATED. WILL CONTINUE TO MONITOR PT
[2017-03-10 04:00] VITALS: BP 149/70
[2017-03-10] MEDS ORDERED: ACETAMINOPHEN 325 MG TABLET ONE (04:13)
[2017-03-10] MEDS: ACETAMINOPHEN 325 MG TABLET PO PRN ×2 (04:29→20:23)
--- NOTE | 2017-03-10 06:57 | NUR ---
SUMMER LAW CLERK CLOSING NOTES PT IS IN BED. A/O X1, NO SIGNS OF SOB OR DISTRESS. PT WAS IN A STATE OF CONFUSION THROUGHOUT THE NIGHT, DID NOT SLEEP. IV ACCESS IS INTACT AND PATENT. ALL NEEDS WERE ANTICIPATED AND MET. PT MAY NEED A SITTER. WILL ENDORSE TO DAY SHIFT.
[2017-03-10 08:00] VITALS: BP 127/72
--- NOTE | 2017-03-10 08:00 | NUR ---
AM RN NOTES RECEIVED PT IN BED, RESTING COMFORTABLY NO SOB OR DISTRESS NOTED, NO PAIN OR DISCOMFORT, WILL MONITOR
[2017-03-10 08:12] LABS: CALCIUM, SERUM 8.7 mg/dL (8.5-10.1); CREATININE 1.1 mg/dL (0.6-1.3); POTASSIUM 3.5 mmol/L (3.5-5.1)
[2017-03-10] MEDS: PANTOPRAZOLE 40 MG TABLET.DR PO SCH (08:38)
[2017-03-10] MEDS: LACTOBACILLUS RHAMNOSUS GG 1 EACH CAP.SPRINK PO SCH ×2 (08:38→16:26)
[2017-03-10] MEDS: MULTIVITAMINS,THERAGRAN 1 UDTAB TABLET PO SCH (08:38)
[2017-03-10] MEDS: FOLIC ACID 1 MG TABLET PO SCH (08:38)
[2017-03-10] MEDS: CARVEDILOL 3.125 MG TABLET PO SCH ×2 (08:39→20:19)
[2017-03-10] MEDS: ASPIRIN 81 MG TAB.CHEW PO SCH (08:39)
[2017-03-10] MEDS: RIFAXIMIN 550 MG TABLET PO SCH ×2 (08:39→16:26)
[2017-03-10] MEDS: HYDROGEL DRESSING 90 GM TUBE TP SCH (08:40)
[2017-03-10] MEDS: PROSOURCE / PROSTAT (PYXIS) 30 ML UDC PO SCH ×2 (08:40→16:28)
[2017-03-10] MEDS: PHENYTOIN SODIUM IV 50 MG/ML VIAL IV SCH ×2 (08:40→20:18)
[2017-03-10 12:00] VITALS: BP 130/81
--- NOTE | 2017-03-10 14:37 | NUR ---
WOUND CARE FOLLOW UP: PT SEEN FOR SACRAL STAGE 2 ULCER WHICH IS RESOLVING. NO BLISTERS NOTED AT THIS TIME. SOME PERIANAL REDNESS NOTED. PT IS INCONTINENT. RECOMMEND CONTINUE PRESENT TREATMENT. PT ON FIRST STEP MATTRESS. ALL SKIN PROTECTION MEASURES IN PLACE. DISCUSSED WITH NURSING STAFF. WILL SEE PRN. FELTON IN AGREEMENT WITH PLAN OF CARE. Addendum: 03/10/17 at 1439 by VIKY GARCIA WNDNU Amended: Links added.
[2017-03-10 16:00] VITALS: BP 136/78
--- NOTE | 2017-03-10 18:51 | NUR ---
PT IN STABLE CONDITION, AT BEDSIDE, NO SOB OR DISTRESS NOTED, WOUND TX DONE, KEPT CLEAN AND DRY, WILL INDORSE TO NEXT SHIFT FOR YAS.
--- NOTE | 2017-03-10 19:35 | NUR ---
EXTERIOR INTERIOR SPECIALIST INITIAL NOTES RECEIVED PT IN BED WITH AT BEDSIDE. NO SIGNS OF SOB OR DISTRESS, ON 2L NC BREATHING EVENLY AND UNLABORED. JASSO CATHETER INTACT AND DRAINING. IV ACCESS INTACT AND PATENT. PT HAS MOMENTS OF CONFUSION, WILL REORIENT NEEDED. BED IS IN LOW AND LOCKED POSITION, CALL LIGHT WITHIN REACH. WILL CONTINUE TO MONITOR PT.
[2017-03-10 20:00] VITALS: BP_SYST 135; BP_SYST 157; BP_DIAS 78; BP_DIAS 90
--- NOTE | 2017-03-10 20:38 | NUR ---
STATE PATROL OFFICER NOTES PT TEMP IS 99.8. TYLENOL WAS GIVEN AND COOLING MEASURES WERE INITIATED WILL CONTINUE TO MONITOR PT
--- NOTE | 2017-03-10 22:00 | NUR ---
OBSTETRICS NURSE PRACTITIONER NOTES TEMP WAS 99.8. COOLING MEASURES WERE INITIATED. WILL CONTINUE TO MONITOR PT
[2017-03-11] VITALS: BP 110/70
[2017-03-11 04:00] VITALS: BP 122/71
[2017-03-11] MEDS: ACETAMINOPHEN 325 MG TABLET PO PRN ×2 (05:43→17:56)
--- NOTE | 2017-03-11 06:12 | NUR ---
PHYSICIAN NON INVASIVE CARDIOLOGIST CLOSING NOTES PT IS IN BED. A/O X1, NO SIGNS OF SOB OR DISTRESS. PT WAS IN A STATE OF CONFUSION THROUGHOUT THE NIGHT, DID NOT SLEEP MUCH. PT HAD A FEVER LAST NIGHT, COOLING MEASURES WERE INITIATED AND TYLENOL WAS GIVEN PRN. IV ACCESS IS INTACT AND PATENT. ALL NEEDS WERE ANTICIPATED AND MET. PT MAY NEED A SITTER. WILL ENDORSE TO DAY SHIFT.
--- NOTE | 2017-03-11 07:40 | NUR ---
RECEIVED PT. AM ALERT AND ORIENTED X1.VERY CONFUSED.VS STABLE.F/C TO GRV. DRAINAGE,WITH GOOD OUTPUT.PUMPS ON.
[2017-03-11 08:00] VITALS: BP 131/85
[2017-03-11 08:04] LABS: BASOPHILS # (AUTO) 0.2 /CMM (0.0-0.2); BASOPHILS % (AUTO) 2.2 % (0.0-2.0); EOSINOPHILS # (AUTO) 0.4 /CMM (0.0-0.7); EOSINOPHILS % (AUTO) 4.4 % (0.0-6.0); HEMATOCRIT 34 % (39-51); HEMOGLOBIN 11.6 g/dL (13.5-17.5); LYMPHOCYTES # (AUTO) 1.2 /CMM (0.8-4.8); MEAN CORPUSCULAR HEMOGLOBIN 32 PG (26.0-33.0); MEAN CORPUSCULAR HGB CONC 34 g/dl (31.0-36.0); MEAN CORPUSCULAR VOLUME 94 fL (80-96); MONOCYTES # (AUTO) 0.8 /CMM (0.1-1.30); MONOCYTES % (AUTO) 8.3 % (2.0-12.0); NEUTROPHILS # (AUTO) 7.4 /CMM (1.8-8.9); NEUTROPHILS % (AUTO) 73.1 % (43.0-81.0); PLATELET COUNT (AUTO) 326 /CMM (150-450); RDW COEFFICIENT OF VARIATION 13.9 (11.5-15.0); RED BLOOD CELL COUNT(AUTO) 3.64 MIL/uL (4.5-6.0); WHITE BLOOD COUNT (AUTO) 10.2 K/uL (4.3-11.0)
[2017-03-11 08:36] LABS: CALCIUM, SERUM 8.4 mg/dL (8.5-10.1); CREATININE 1.1 mg/dL (0.6-1.3); MAGNESIUM 2.1 mg/dL (1.8-2.4); PHOSPHORUS 4.9 mg/dL (2.5-4.9); POTASSIUM 3.3 mmol/L (3.5-5.1)
[2017-03-11] MEDS: ASPIRIN 81 MG TAB.CHEW PO SCH (09:27)
[2017-03-11] MEDS: CARVEDILOL 3.125 MG TABLET PO SCH ×2 (09:27→21:42)
[2017-03-11] MEDS: LACTOBACILLUS RHAMNOSUS GG 1 EACH CAP.SPRINK PO SCH ×2 (09:27→17:56)
[2017-03-11] MEDS: PANTOPRAZOLE 40 MG TABLET.DR PO SCH (09:27)
[2017-03-11] MEDS: PROSOURCE / PROSTAT (PYXIS) 30 ML UDC PO SCH ×2 (09:27→17:55)
[2017-03-11] MEDS: FOLIC ACID 1 MG TABLET PO SCH (09:27)
[2017-03-11] MEDS: MULTIVITAMINS,THERAGRAN 1 UDTAB TABLET PO SCH (09:27)
[2017-03-11] MEDS: RIFAXIMIN 550 MG TABLET PO SCH ×2 (09:28→17:55)
[2017-03-11] MEDS: HYDROGEL DRESSING 90 GM TUBE TP SCH (09:29)
[2017-03-11] MEDS: PHENYTOIN SODIUM IV 50 MG/ML VIAL IV SCH ×2 (09:36→21:42)
[2017-03-11] MEDS: POTASSIUM CHLORIDE 20 MEQ TAB.PRT.SR PO SCH ×2 (09:52→11:49)
[2017-03-11] MEDS ORDERED: POTASSIUM CHLORIDE 20 MEQ TAB.PRT.SR PO SCH (10:00)
--- NOTE | 2017-03-11 11:30 | NUR ---
POTASSIUM REPLACEMENT DONE.
--- NOTE | 2017-03-11 13:50 | NUR ---
PHY. TX. IN TO SEE PT. UNABLE TO FOLLOW DIRECTIONS PER PTX.
--- NOTE | 2017-03-11 14:45 | NUR ---
MRSA SMEAR RT. NARES DONE AND SENT TO LAB.
[2017-03-11 16:00] VITALS: BP 148/86
--- NOTE | 2017-03-11 17:56 | NUR ---
GIVEN TYLENOL FOR FEVER 100.4.
--- NOTE | 2017-03-11 18:30 | NUR ---
KARSTEN SWANSON NURSE IN AND ORDERS GIVEN-URINE CULTURE SENT.
--- NOTE | 2017-03-11 19:30 | NUR ---
RN OPENING NOTES RECEIVED REPORT FROM CRISTOBAL RNYOANA. FOUND Pt AWAKE IN BED, RESTING. VISITING AT BEDSIDE. NO S/S OF ACUTE DISTRESS OR SOB NOTED. NO SIGNS OF PAIN AT THIS TIME. IV ACCESS ON RT ARM PICCLINE. SAFETY MEASURES IN PLACE. BED LOW, LOCKED, HOB ELEVATED, SIDE RAILS UP, CALL LIGHT AND BEDSIDE TABLE WITHIN REACH. WILL CONTINUE TO MONITOR Pt THROUGHOUT THE NIGHT FOR SAFETY.
[2017-03-11 20:00] VITALS: BP 114/68
[2017-03-12] MEDS: LORAZEPAM INJ 2 MG/ML VIAL IV PRN (02:01)
--- NOTE | 2017-03-12 06:55 | NUR ---
RN CLOSING NOTES NO SIGNIFICANT CHANGES IN Pt's CONDITION. Pt STABLE AT THIS TIME. NO S/S OF ACUTE DISTRESS OR SOB NOTED DURING THE NIGHT. ALL NEEDS MET AND ATTENDED TO. SAFETY MEASURES IN PLACE. WILL ENDORSE TO DAYSHIFT RN FOR Pt's YAS.
--- NOTE | 2017-03-12 07:30 | NUR ---
RECEIVED PT. IN AM ALERT AND ORIENTED X1,COOPERATIVE.PICC LINE IN PLACE AND F/C DRAINING GOOD AMT.
[2017-03-12 08:00] VITALS: BP 133/94
[2017-03-12] MEDS ORDERED: POTASSIUM CHLORIDE 20 MEQ TAB.PRT.SR PO SCH (09:00)
[2017-03-12] MEDS: PANTOPRAZOLE 40 MG TABLET.DR PO SCH (09:17)
[2017-03-12] MEDS: LACTOBACILLUS RHAMNOSUS GG 1 EACH CAP.SPRINK PO SCH ×2 (09:17→18:04)
[2017-03-12] MEDS: RIFAXIMIN 550 MG TABLET PO SCH ×2 (09:17→18:04)
[2017-03-12] MEDS: ASPIRIN 81 MG TAB.CHEW PO SCH (09:17)
[2017-03-12] MEDS: PHENYTOIN SODIUM IV 50 MG/ML VIAL IV SCH ×2 (09:17→21:24)
[2017-03-12] MEDS: FOLIC ACID 1 MG TABLET PO SCH (09:18)
[2017-03-12] MEDS: CARVEDILOL 3.125 MG TABLET PO SCH ×2 (09:18→21:24)
[2017-03-12] MEDS: HYDROGEL DRESSING 90 GM TUBE TP SCH (09:20)
[2017-03-12] MEDS: PROSOURCE / PROSTAT (PYXIS) 30 ML UDC PO SCH ×2 (09:20→18:04)
[2017-03-12] MEDS: MULTIVITAMINS,THERAGRAN 1 UDTAB TABLET PO SCH (09:27)
[2017-03-12 09:56] LABS: CALCIUM, SERUM 8.2 mg/dL (8.5-10.1); CREATININE 1.3 mg/dL (0.6-1.3); POTASSIUM 4.1 mmol/L (3.5-5.1)
[2017-03-12] MEDS: POLYVINYL ALCOHOL 15 ML BOTTLE EACHEYE PRN ×2 (10:28→22:51)
--- NOTE | 2017-03-12 10:38 | NUR ---
PT. REQUESTING EYE DROPS,GIVEN ARTIFICIAL TEARS.
[2017-03-12] MEDS: ENOXAPARIN SODIUM 40 MG/0.4 ML DISP.SYRIN SQ SCH (14:23)
[2017-03-12 16:00] VITALS: BP 124/94
--- NOTE | 2017-03-12 17:30 | NUR ---
FAMILY IN TO VISIT.
--- NOTE | 2017-03-12 18:00 | NUR ---
NO CHANGE IN STATUS.
--- NOTE | 2017-03-12 19:25 | NUR ---
MS RN OPENING NOTES: RECEIVED PT WITH FAMILY MEMBER AT BEDSIDE. PT IS AWAKE AND RESTING IN BED. NO S/S OF ACUTE DISTRESS OR SOB NOTED. NO SIGNS OF PAIN AT THIS TIME. PT IS ON 2LPM VIA NC AND IS TOLERATING WELL. IV ACCESS ON RT ARM AND HAS PICC LINE. SAFETY MEASURES IN PLACE. BED LOW, LOCKED, HOB ELEVATED, SIDE RAILS UP, CALL LIGHT AND BEDSIDE TABLE WITHIN REACH. WILL CONTINUE TO MONITOR PT.
[2017-03-12 20:00] VITALS: BP 129/83
[2017-03-13] MEDS: LORAZEPAM INJ 2 MG/ML VIAL IV PRN (00:02)
--- NOTE | 2017-03-13 00:02 | NUR ---
MS RN NOTES: PT COULDN'T KEEP STILL IN BED AND WAS ATTEMPTING TO GET OUT OF BED MULTIPLE TIMES. PT WAS GIVEN ATIVAN 1MG IV. WILL CONTINUE TO MONITOR PT.
[2017-03-13 07:15] LABS: BASOPHILS # (AUTO) 0.3 /CMM (0.0-0.2); BASOPHILS % (AUTO) 2.9 % (0.0-2.0); EOSINOPHILS # (AUTO) 0.9 /CMM (0.0-0.7); EOSINOPHILS % (AUTO) 9.9 % (0.0-6.0); HEMATOCRIT 34 % (39-51); HEMOGLOBIN 11.6 g/dL (13.5-17.5); LYMPHOCYTES # (AUTO) 1.1 /CMM (0.8-4.8); MEAN CORPUSCULAR HEMOGLOBIN 32 PG (26.0-33.0); MEAN CORPUSCULAR HGB CONC 35 g/dl (31.0-36.0); MEAN CORPUSCULAR VOLUME 93 fL (80-96); MONOCYTES % (AUTO) 11.1 % (2.0-12.0); NEUTROPHILS # (AUTO) 5.8 /CMM (1.8-8.9); NEUTROPHILS % (AUTO) 64.1 % (43.0-81.0); PLATELET COUNT (AUTO) 356 /CMM (150-450); RDW COEFFICIENT OF VARIATION 13.4 (11.5-15.0); RED BLOOD CELL COUNT(AUTO) 3.59 MIL/uL (4.5-6.0); WHITE BLOOD COUNT (AUTO) 9.1 K/uL (4.3-11.0)
--- NOTE | 2017-03-13 07:25 | NUR ---
MS RN CLOSING NOTES: ALL NEEDS WERE ATTENDED AND ANTICIPATED FOR. PT IS AWAKE AND RESTING IN BED. INFORMED PT TO USE CALL LIGHT AND NOT TO GET OUT OF BED. NO S/S OF ACUTE DISTRESS OR SOB NOTED. NO SIGNS OF PAIN AT THIS TIME. PT IS ON 2LPM VIA NC AND IS TOLERATING WELL. IV ACCESS ON RT ARM AND HAS PICC LINE. SAFETY MEASURES IN PLACE. BED LOW, LOCKED, HOB ELEVATED, SIDE RAILS UP, CALL LIGHT AND BEDSIDE TABLE WITHIN REACH. PT HAS F/C ATTACHED TO DRAINAGE BAG. OUTPUT WAS 800ML. ENDORSED TO AM NURSE FOR YAS.
[2017-03-13 07:43] LABS: CALCIUM, SERUM 8.2 mg/dL (8.5-10.1); CREATININE 1.6 mg/dL (0.6-1.3)
--- NOTE | 2017-03-13 07:54 | NUR ---
RN NOTES RECEIVED PT. PT IS AWAKE AND IN BED. A/OX2. NO S/S OF DISTRESS OR SOB. NO C/O PAIN. PT HAS A FC, NO C/O DISCOMFORT. IV ACCESS LOCATED ON R ARM PICC LINE. PT IS ON SEIZURE AND ASPIRATION PRECAUTIONS. SAFETY MEASURES IN PLACE, CALL LIGHT WITHIN REACH. WILL CONTINUE TO MONITOR.
[2017-03-13 08:00] VITALS: BP 125/80
[2017-03-13 08:22] LABS: PHOSPHORUS 4.4 mg/dL (2.5-4.9)
[2017-03-13] MEDS: ASPIRIN 81 MG TAB.CHEW PO SCH (09:05)
[2017-03-13] MEDS: MULTIVITAMINS,THERAGRAN 1 UDTAB TABLET PO SCH (09:05)
[2017-03-13] MEDS: LACTOBACILLUS RHAMNOSUS GG 1 EACH CAP.SPRINK PO SCH ×2 (09:05→16:21)
[2017-03-13] MEDS: FOLIC ACID 1 MG TABLET PO SCH (09:05)
[2017-03-13] MEDS: PANTOPRAZOLE 40 MG TABLET.DR PO SCH (09:05)
[2017-03-13] MEDS: RIFAXIMIN 550 MG TABLET PO SCH ×2 (09:05→16:20)
[2017-03-13] MEDS: CARVEDILOL 3.125 MG TABLET PO SCH ×2 (09:05→21:36)
[2017-03-13] MEDS: PROSOURCE / PROSTAT (PYXIS) 30 ML UDC PO SCH ×2 (09:06→17:00)
[2017-03-13] MEDS: ENOXAPARIN SODIUM 40 MG/0.4 ML DISP.SYRIN SQ SCH (09:06)
[2017-03-13] MEDS: PHENYTOIN SODIUM IV 50 MG/ML VIAL IV SCH ×2 (09:10→21:37)
[2017-03-13] MEDS: HYDROGEL DRESSING 90 GM TUBE TP SCH (09:22)
[2017-03-13 16:00] VITALS: BP 121/71
[2017-03-13] MEDS: IV NS 0.9% 1,000 ML IV PRN (16:12)
[2017-03-13] MEDS: FLUCONAZOLE (100 MG) 100 MG TABLET PO SCH (17:41)
--- NOTE | 2017-03-13 18:39 | NUR ---
RN CLOSING NOTE PT IS AWAKE IN BED, WITH AT BEDSIDE. A/O X 3. NO S/S OF DISTRESS OR SOB. NO C/O PAIN. PT HAS A FC, COLLECTED OUTPUT OF 700 CC. WOUND CARE PERFORMED FOR SACRAL AREA. PT HAS A PICC LINE ON R ARM, RUNNING NS AT 75 ML/HR. PT IS ON SEIZURE AND ASPIRATION PRECAUTIONS. SAFETY MEASURES IN PLACE. CALL LIGHT WITHIN REACH. WILL ENDORSE TO WEIGH BOSS FOR YAS.
--- NOTE | 2017-03-13 19:15 | NUR ---
MS RN OPENING NOTES: RECEIVED PT IN BED AND IS AWAKE/ PT IS A/O X1-2. AT BEDSIDE. NO S/S OF DISTRESS NOTED AT THIS TIME. PT HAS FC AND IS ATTACHED TO DRAINAGE BAG. PT HAS PICC LINE ON R ARM AND IS BEING INFUSED WITH NS AT 75ML/HR. CALL LIGHT WITHIN PT'S REACH. BED KEPT IN LOW, LOCKED POSITION, AND SIDE RAILS X 2 UP. WILL CONTINUE TO MONITOR PT.
[2017-03-13 20:00] VITALS: BP 128/79
[2017-03-14] MEDS: POLYVINYL ALCOHOL 15 ML BOTTLE EACHEYE PRN (03:28)
[2017-03-14] MEDS: IV NS 0.9% 1,000 ML IV PRN ×2 (06:03→20:20)
--- NOTE | 2017-03-14 07:25 | NUR ---
MS RN CLOSING NOTES: ALL NEEDS WERE ATTENDED AND ANTICIPATED FOR. PT IS IN BED AND IS AWAKE/ PT IS A/O X1-2. NO S/S OF DISTRESS NOTED AT THIS TIME. PT HAS FC AND IS ATTACHED TO DRAINAGE BAG. JASSO CATH OUTPUT WAS 1000ML. PT HAS PICC LINE ON R ARM AND IS BEING INFUSED WITH NS AT 75ML/HR. CALL LIGHT WITHIN PT'S REACH. BED KEPT IN LOW, LOCKED POSITION, AND SIDE RAILS X 2 UP. ENDORSED TO AM NURSE FOR YAS.
--- NOTE | 2017-03-14 07:36 | NUR ---
RN NOTES RECEIVED PT. PT IS AWAKE AND IN BED. A/OX3. NO S/S OF DISTRESS OR SOB. PT IS ON NC WITH 2L/MIN O2. FC IN PLACE, WITH 50 CC AT BEGINNING OF SHIFT. IV ACCESS IS LOCATED ON RIGHT ARM, PICC LINE RUNNING IV NS AT 75 ML/HR. PT IS ON SEIZURE PRECAUTIONS. SAFETY MEASURES IN PLACE, CALL LIGHT WITHIN REACH. WILL CONTINUE TO MONITOR.
[2017-03-14 07:52] LABS: BASOPHILS # (AUTO) 0.3 /CMM (0.0-0.2); BASOPHILS % (AUTO) 3.4 % (0.0-2.0); EOSINOPHILS % (AUTO) 11.2 % (0.0-6.0); HEMATOCRIT 32 % (39-51); HEMOGLOBIN 11.1 g/dL (13.5-17.5); LYMPHOCYTES % (AUTO) 11.9 % (20.0-44.0); MEAN CORPUSCULAR HEMOGLOBIN 32 PG (26.0-33.0); MEAN CORPUSCULAR HGB CONC 35 g/dl (31.0-36.0); MEAN CORPUSCULAR VOLUME 93 fL (80-96); MONOCYTES # (AUTO) 1.1 /CMM (0.1-1.30); MONOCYTES % (AUTO) 12.3 % (2.0-12.0); NEUTROPHILS # (AUTO) 5.3 /CMM (1.8-8.9); NEUTROPHILS % (AUTO) 61.2 % (43.0-81.0); PLATELET COUNT (AUTO) 348 /CMM (150-450); RDW COEFFICIENT OF VARIATION 13.6 (11.5-15.0); RED BLOOD CELL COUNT(AUTO) 3.44 MIL/uL (4.5-6.0); WHITE BLOOD COUNT (AUTO) 8.6 K/uL (4.3-11.0)
[2017-03-14 08:00] VITALS: BP_SYST 111; BP_SYST 129; BP_DIAS 59; BP_DIAS 78
[2017-03-14 08:23] LABS: CALCIUM, SERUM 7.9 mg/dL (8.5-10.1); CREATININE 1.7 mg/dL (0.6-1.3); MAGNESIUM 2.1 mg/dL (1.8-2.4); PHOSPHORUS 4.2 mg/dL (2.5-4.9); POTASSIUM 4.1 mmol/L (3.5-5.1)
[2017-03-14] MEDS: ENOXAPARIN SODIUM 40 MG/0.4 ML DISP.SYRIN SQ SCH (08:56)
[2017-03-14] MEDS: RIFAXIMIN 550 MG TABLET PO SCH ×2 (08:57→17:33)
[2017-03-14] MEDS: MULTIVITAMINS,THERAGRAN 1 UDTAB TABLET PO SCH (08:57)
[2017-03-14] MEDS: PANTOPRAZOLE 40 MG TABLET.DR PO SCH (08:57)
[2017-03-14] MEDS: FOLIC ACID 1 MG TABLET PO SCH (08:57)
[2017-03-14] MEDS: LACTOBACILLUS RHAMNOSUS GG 1 EACH CAP.SPRINK PO SCH ×2 (08:57→17:33)
[2017-03-14] MEDS: FLUCONAZOLE (100 MG) 100 MG TABLET PO SCH (08:57)
[2017-03-14] MEDS: PHENYTOIN SODIUM IV 50 MG/ML VIAL IV SCH ×2 (08:58→21:57)
[2017-03-14] MEDS: ASPIRIN 81 MG TAB.CHEW PO SCH (09:00)
[2017-03-14] MEDS: PROSOURCE / PROSTAT (PYXIS) 30 ML UDC PO SCH ×2 (09:00→17:00)
[2017-03-14] MEDS: CARVEDILOL 3.125 MG TABLET PO SCH ×2 (09:03→20:38)
[2017-03-14] MEDS: HYDROGEL DRESSING 90 GM TUBE TP SCH (09:17)
[2017-03-14 16:00] VITALS: BP 132/80
--- NOTE | 2017-03-14 16:40 | NUR ---
still max assist with transfer, difficulty with gait. Referral faxed to [facility] for eval [phone] Addendum: 03/14/17 at 1818 by NATO SIERRA RN Amended: Links added.
--- NOTE | 2017-03-14 18:38 | NUR ---
RN CLOSING NOTE PT IS AWAKE AND RESTING IN BED. A/OX2. NO S/S OF DISTRESS OR SOB. NO C/O PAIN OR ANXIETY. PT IS ON SEIZURE PRECAUTIONS. ALL PATIENT NEEDS ANTICIPATED AND MET. SAFETY MEASURES IN PLACE. WILL ENDORSE TO SHAKER OPERATOR FOR YAS.
--- NOTE | 2017-03-14 19:30 | NUR ---
MS RN NOTES RECEIVED ON BED A/O X1-2,BREATHING NON LABORED,O2 IN USED AT 2L/NC,O2 SAT 95%.PRESENT IVF INFUSING WELL ON RIGHT UPPER ARM PICC LINE,VIA IV PUMP.DVT PUMP IN USED FOR DVT PROPHYLAXIS.ABLE TO VERBALIZED NEEDS.CALL LIGHT IN REACH.NEEDS ANTICIPATED.
[2017-03-14 20:00] VITALS: BP 153/87
[2017-03-14] MEDS: HEPARIN SODIUM, PORCINE 5000 UNITS/1 ML VIAL SQ SCH (20:44)
--- NOTE | 2017-03-14 21:00 | NUR ---
MS RN NOTES STARTED ON HEPARIN 5000 UNITS GIVEN ON LEFT LOWER ABDOMEN.
--- NOTE | 2017-03-14 23:30 | NUR ---
MS RN NOTES APPEARS CONFUSED,HE PULLED OUT HIS PICC LINE.
--- NOTE | 2017-03-15 | NUR ---
MS RN NOTES NEW SALINE LOCK PLACE ON LEFT UPPER ARM #18,REFUSED IVF AT THIS TIME.
[2017-03-15] MEDS: LORAZEPAM INJ 2 MG/ML VIAL IV PRN (00:39)
--- NOTE | 2017-03-15 00:39 | NUR ---
MS RN NOTES APPEARS ANXIOUS,MEDICATED WITH ATIVAN 1MG IVP ORDERED Q 4 FOR ANXIETY.CYANIDE POT HARDENER AT BEDSIDE.
--- NOTE | 2017-03-15 01:26 | NUR ---
MS RN NOTES DR CRUZ CALLED BACK,MADE AWARE OF PATIENT STATUS.WITH ORDER TO HOLD ON TO IVF FLUIDS TONIGHT AND RESUME IN THE MORNING,NOTED AND CARRIED OUT.
--- NOTE | 2017-03-15 01:30 | NUR ---
MS RN NOTES SLEEPING AT THIS TIME,SNOORING.PULP TESTER AT BEDSIDE FOR SAFETY.
--- NOTE | 2017-03-15 06:53 | NUR ---
MS RN NOTES CALM AND QUIET,ABLE TO SLEEP AFTER MEDICATED WITH ATIVAN 1MG IVP.IVF STILL HELD.FALL PRECAUTION OBSERVED.CALL LIGHT IN REACH,NEEDS ATTENDED.WILL ENDORSE TO DAY NURSE FOR YAS.
--- NOTE | 2017-03-15 07:32 | NUR ---
RN NOTES RECEIVED PT. PT IS STABLE AND SLEEPING IN BED. NO S/S OF SOB OR DISTRESS. PT IS ON NC AT 2L/MIN. PER REPORT, PT REMOVED R ARM PICC. IV ACCESS LOCATED ON LEFT ARM 18G, SL. PT REFUSES IV FLUIDS. SAFETY MEASURES IN PLACE, CALL LIGHT WITHIN REACH. WILL CONTINUE TO MONITOR.
[2017-03-15 07:42] LABS: BASOPHILS # (AUTO) 0.3 /CMM (0.0-0.2); BASOPHILS % (AUTO) 3.6 % (0.0-2.0); EOSINOPHILS # (AUTO) 0.9 /CMM (0.0-0.7); EOSINOPHILS % (AUTO) 10.6 % (0.0-6.0); HEMATOCRIT 33 % (39-51); HEMOGLOBIN 11.7 g/dL (13.5-17.5); LYMPHOCYTES % (AUTO) 11.5 % (20.0-44.0); MEAN CORPUSCULAR HEMOGLOBIN 33 PG (26.0-33.0); MEAN CORPUSCULAR HGB CONC 35 g/dl (31.0-36.0); MEAN CORPUSCULAR VOLUME 92 fL (80-96); MONOCYTES # (AUTO) 1.2 /CMM (0.1-1.30); MONOCYTES % (AUTO) 13.7 % (2.0-12.0); NEUTROPHILS # (AUTO) 5.4 /CMM (1.8-8.9); NEUTROPHILS % (AUTO) 60.6 % (43.0-81.0); PLATELET COUNT (AUTO) 369 /CMM (150-450); RDW COEFFICIENT OF VARIATION 13.1 (11.5-15.0); WHITE BLOOD COUNT (AUTO) 8.9 K/uL (4.3-11.0)
[2017-03-15 08:00] VITALS: BP 138/72
[2017-03-15 08:20] LABS: CALCIUM, SERUM 8.1 mg/dL (8.5-10.1); CREATININE 1.8 mg/dL (0.6-1.3); MAGNESIUM 2.1 mg/dL (1.8-2.4); PHOSPHORUS 4.6 mg/dL (2.5-4.9); POTASSIUM 4.1 mmol/L (3.5-5.1)
[2017-03-15] MEDS: PROSOURCE / PROSTAT (PYXIS) 30 ML UDC PO SCH ×2 (09:00→16:24)
[2017-03-15] MEDS: FLUCONAZOLE (100 MG) 100 MG TABLET PO SCH (09:20)
[2017-03-15] MEDS: PHENYTOIN SODIUM IV 50 MG/ML VIAL IV SCH ×2 (09:20→21:17)
[2017-03-15] MEDS: HEPARIN SODIUM, PORCINE 5000 UNITS/1 ML VIAL SQ SCH ×2 (09:25→21:18)
[2017-03-15] MEDS: MULTIVITAMINS,THERAGRAN 1 UDTAB TABLET PO SCH (09:25)
[2017-03-15] MEDS: FOLIC ACID 1 MG TABLET PO SCH (09:25)
[2017-03-15] MEDS: ASPIRIN 81 MG TAB.CHEW PO SCH (09:25)
[2017-03-15] MEDS: LACTOBACILLUS RHAMNOSUS GG 1 EACH CAP.SPRINK PO SCH ×2 (09:26→16:19)
[2017-03-15] MEDS: RIFAXIMIN 550 MG TABLET PO SCH ×2 (09:26→16:19)
[2017-03-15] MEDS: CARVEDILOL 3.125 MG TABLET PO SCH ×2 (09:26→21:20)
[2017-03-15] MEDS: PANTOPRAZOLE 40 MG TABLET.DR PO SCH (09:26)
[2017-03-15] MEDS: HYDROGEL DRESSING 90 GM TUBE TP SCH (09:41)
--- NOTE | 2017-03-15 11:43 | NUR ---
RN NOTES PT APPEARS TO BE MORE AWARE AND COMPLIANT. NO S/S OF DISTRESS OR SOB. WILL CONTINUE TO MONITOR FOR INCREASED ANXIETY.
[2017-03-15 16:00] VITALS: BP 131/76
--- NOTE | 2017-03-15 18:37 | NUR ---
RN CLOSING NOTES PT IS IN BED RESTING. A/OX2, PT REMAINS CONFUSED AT TIMES. NO S/S OF DISTRESS OR SOB. PT HAS NO C/O PAIN OR ANXIETY. IV ACCESS REMAINS INTACT WITH NS RUNNING AT 75 ML/HR. PT'S HAS VISITED HIM FREQUENTLY THROUGH OUT THE DAY. ALL PATIENT NEEDS ANTICIPATED AND MET. SAFETY MEASURES IN PLACE, CALL LIGHT WITHIN REACH. WILL ENDORSE TO CUSTOMER SERVICE ADVISOR FOR YAS.
[2017-03-15] MEDS: IV NS 0.9% 1,000 ML IV PRN (18:48)
--- NOTE | 2017-03-15 19:15 | NUR ---
MS RN NOTES RECEIVED RESTING COMFORTABLY ON BED,CALM ABLE TO VERBALIZED NEEDS.PRESENT IVF INFUSING WELL AT 75ML/HR RATE VIA IV PUMP,SITE PATENT LEFT UPPER ARM SALINE LOCK #18.FALL PRECAUTION OBSERVED.JASSO CATH IN PLACE DRAINING YELLOWISH OUTPUT,CALL LIGHT IN REACH,NEEDS ANTICIPATED.
[2017-03-15 20:00] VITALS: BP 131/76
--- NOTE | 2017-03-15 22:00 | NUR ---
MS RN NOTES EVENING CARE RENDERED BY OSIEL RYAN,REPOSITION
--- NOTE | 2017-03-16 06:30 | NUR ---
MS RN NOTES CALM AND QUIET THRU OUT SHIFT.NO SEIZURE ACTIVITY NOTED.IVF INFUSING CALL LIGHT IN REACH,NEEDS ATTENDED.REFERRED BY NEON MOLDER TO [facility] FOR EVALUATION AND PLACEMENT.WILL ENDORSE TO DAY NURSE FOR YAS.
--- NOTE | 2017-03-16 07:37 | NUR ---
M/RN NOTES RECEIVED PATIENT AWAKE IN BED IN NO ACUTE SIGN OF DISTRESS. ALERT AND ORIENTED X2 AND ABLE TO VERBALIZED NEEDS, NO C/O PAIN OR DISCOMFORTS AT THIS TIME. IVF OF NS @ 75ML/HR INFUSING WELL TO LEFT UPPER ARM G#18, NO SIGNS OF INFILTRATION NOTED. JASSO CATH IN PLACE DRAINING CLEAR YELLOWISH URINE. BED IN LOW POSITION AND LOCKED. CALL LIGHT IN REACH. WILL MAINTAIN ALL SAFETY MEASURES AND WILL CONTINUE TO MONITOR PT ACCORDINGLY. .
[2017-03-16 08:00] VITALS: BP 113/66
[2017-03-16] MEDS: MULTIVITAMINS,THERAGRAN 1 UDTAB TABLET PO SCH (09:26)
[2017-03-16] MEDS: ASPIRIN 81 MG TAB.CHEW PO SCH (09:26)
[2017-03-16] MEDS: FLUCONAZOLE (100 MG) 100 MG TABLET PO SCH (09:27)
[2017-03-16] MEDS: PANTOPRAZOLE 40 MG TABLET.DR PO SCH (09:27)
[2017-03-16] MEDS: RIFAXIMIN 550 MG TABLET PO SCH ×2 (09:27→17:12)
[2017-03-16] MEDS: LACTOBACILLUS RHAMNOSUS GG 1 EACH CAP.SPRINK PO SCH ×2 (09:27→17:12)
[2017-03-16] MEDS: FOLIC ACID 1 MG TABLET PO SCH (09:27)
[2017-03-16] MEDS: HYDROGEL DRESSING 90 GM TUBE TP SCH (09:28)
[2017-03-16] MEDS: CARVEDILOL 3.125 MG TABLET PO SCH ×2 (09:28→21:03)
[2017-03-16] MEDS: PROSOURCE / PROSTAT (PYXIS) 30 ML UDC PO SCH ×2 (09:28→17:12)
[2017-03-16] MEDS: HEPARIN SODIUM, PORCINE 5000 UNITS/1 ML VIAL SQ SCH ×2 (09:32→21:05)
[2017-03-16] MEDS: PHENYTOIN SODIUM IV 50 MG/ML VIAL IV SCH ×2 (09:54→21:02)
[2017-03-16] MEDS: IV NS 0.9% 1,000 ML IV PRN (10:53)
[2017-03-16] MEDS: MICAFUNGIN SODIUM 100 MG in IV NS 0.9% 100 ML IV SCH (13:08)
[2017-03-16 16:00] VITALS: BP_SYST 135; BP_DIAS 80; BP_DIAS 83
--- NOTE | 2017-03-16 16:43 | NUR ---
RN NOTES PATIENT IV ACCESS ON RIGHT UPPER ARM LEAKING AND WAS REMOVED. NEW IV LINE INSERTED ON RIGHT FOREARM G#22. WILL CONTINUE TO MONITOR.
--- NOTE | 2017-03-16 18:49 | NUR ---
RN CLOSING NOTES PT IN BED RESTING AND WATCHING TV WITH AT BEDSIDE. A/O X2, CONFUSED AT TIMES BUT COOPERATIVE AND COMPLIANT WITH CARE. ON 02 VIA N/C AT 2LPM, NO SOB NOTED. IV ACCESS ON RIGHT FA INTACT WITH NS @ 75 ML/HR INFUSING WELL. ALL NEEDS AND CARE ANTICIPATED AND MET. SAFETY MEASURES IN PLACE, CALL LIGHT WITHIN REACH. HOB ELEVATED. WILL ENDORSE TO FIT MODEL NURSE FOR YAS.
--- NOTE | 2017-03-16 19:05 | NUR ---
RN NOTES RECEIVED PT AWAKE, HOB ELEVATED, NO SOB, NOT IN DISTRESS, ON 2LPM O2 VIA NC AND TOLERATED WELL. PT ALERT AND ORIENTED X2, VERBALLY RESPONSIVE, DENIES AND PAIN AND DISCOMFORT AT THIS TIME. IV ACCESS ON RIGHT FOREARM PATENT AND INTACT WITH ONGOING IV FLUID INFUSING WELL. JASSO CATH INTACT WITH CLEAR YELLOW URINE OUTPUT NOTED. DVT PUMP ON AND TOLERATED WELL. KEPT BED IN THE LOWEST POSITION, LOCKED, SIDE RAILS X3 UP WITH CALL LIGHT WITH IN REACH. KEPT COMFORTABLE AND ATTENDED. WILL CONTINUE TO MONITOR PT.
[2017-03-16 20:00] VITALS: BP 124/89
[2017-03-16 22:00] VITALS: BP 124/89
[2017-03-17] MEDS: IV NS 0.9% 1,000 ML IV PRN ×2 (04:44→18:29)
--- NOTE | 2017-03-17 05:35 | NUR ---
RN NOTES JASSO CATH REMOVED ORDERED AND TOLERATED WELL. PT INSTRUCTED TO USE URINAL. WILL MONITOR FOR RETENTION.
--- NOTE | 2017-03-17 07:24 | NUR ---
RN NOTES PT ASLEEP, HOB ELEVATED, BREATHING REGULAR AND UNLABORED, NO SIGNS OF DISTRESS AND DISCOMFORT NOTED. ON 2LPM O2 VIA NC WITH GOOD SATURATION. VITAL SIGNS STABLE, AFEBRILE. NO EPISODE OF NAUSEA AND VOMITING. NO COMPLAIN OF CHEST PAIN. ALL DUE MEDS GIVEN. KEPT CLEAN AND DRY. ALL NEEDS ATTENDED. NO SIGNIFICANT CHANGE IN CONDITION NOTED. ENDORSED TO MORNING RN FOR CONTINUITY OF CARE.
--- NOTE | 2017-03-17 07:44 | NUR ---
MS/RN OPENING NOTE PATIENT RECEIVED IN BED IN STABLE CONDITION. ASLEEP AT THIS TIME, EASILY AROUSABLE. ALERT AND ORIENTED TIMES 2. NO SIGNS OF ACUTE DISTRESS, NO COMPLAIN OF PAIN OR DISCOMFORT. ALL NEEDS ATTENDED TO. CALL LIGHT WITHIN REACH. WILL CONTINUE TO MONITOR TO ENSURE SAFETY.
[2017-03-17 08:00] VITALS: BP 110/69
[2017-03-17] MEDS: RIFAXIMIN 550 MG TABLET PO SCH ×2 (08:25→16:51)
[2017-03-17] MEDS: CARVEDILOL 3.125 MG TABLET PO SCH ×2 (08:25→21:02)
[2017-03-17] MEDS: PANTOPRAZOLE 40 MG TABLET.DR PO SCH (08:25)
[2017-03-17] MEDS: ASPIRIN 81 MG TAB.CHEW PO SCH (08:25)
[2017-03-17] MEDS: LACTOBACILLUS RHAMNOSUS GG 1 EACH CAP.SPRINK PO SCH ×2 (08:26→16:51)
[2017-03-17] MEDS: FOLIC ACID 1 MG TABLET PO SCH (08:26)
[2017-03-17] MEDS: PHENYTOIN SODIUM IV 50 MG/ML VIAL IV SCH ×2 (08:26→21:01)
[2017-03-17] MEDS: HEPARIN SODIUM, PORCINE 5000 UNITS/1 ML VIAL SQ SCH ×2 (08:37→21:04)
[2017-03-17] MEDS: PROSOURCE / PROSTAT (PYXIS) 30 ML UDC PO SCH ×2 (09:14→16:51)
[2017-03-17] MEDS: MULTIVITAMINS,THERAGRAN 1 UDTAB TABLET PO SCH (09:14)
[2017-03-17] MEDS: Z GUARD REMEDY 2 OZ OINT TP PRN (09:17)
[2017-03-17] MEDS: HYDROGEL DRESSING 90 GM TUBE TP SCH (09:17)
--- NOTE | 2017-03-17 11:40 | NUR ---
MS/RN S/R F/C REMOVAL MONITOR PATIENT S/P F/C REMOVAL. TOLERATING WELL. PATIENT VOIDED IN URINAL 200CC OF URINE AT THIS TIME. NO EPISODE OF URINARY RETENTION NOTED AT THIS TIME. WILL CONTINUE TO MONITOR.
[2017-03-17] MEDS: MICAFUNGIN SODIUM 100 MG in IV NS 0.9% 100 ML IV SCH (12:32)
--- NOTE | 2017-03-17 13:29 | NUR ---
MS/RN SEEN BY DR KELLER PATIENT SEEN BY ID DOCTOR KELLER WITH NO ORDERS AT THIS TIME.
[2017-03-17 16:00] VITALS: BP 120/74
--- NOTE | 2017-03-17 18:11 | NUR ---
MS/RN CLOSING NOTE PATIENT IN BED IN STABLE CONDITION. ALERT AND ORIENTED TIMES 3. NO SIGNS OF ACUTE DISTRESS. NO COMPLAIN OF PAIN OR DISCOMFORT. ALL NEEDS ATTENDED TO. CALL LIGHT WITHIN REACH. WILL ENDORSE TO BOWLING ALLEY MECHANIC FOR CONTINUITY OF CARE.
--- NOTE | 2017-03-17 19:10 | NUR ---
RN NOTES RECEIVED PT AWAKE, HOB ELEVATED, NO SOB, NOT IN DISTRESS ON 2LPM O2 AND TOLERATED WELL. PT ALERT AND ORIENTED X2, DENIES ANY PAIN AND DISCOMFORT AT THIS TIME. IV ACCESS ON RIGHT FOREARM PATENT AND INTACT WITH ONGOING IV FLUID INFUSING WELL. KEPT COMFORTABLE AND ATTENDED. KEPT BED IN THE LOWEST POSITION, LOCKED, SIDE RAILS X3 UP WITH CALL LIGHT WITHIN REACH. WILL CONTINUE TO MONITOR PT.
[2017-03-17 20:41] VITALS: BP 130/83
--- NOTE | 2017-03-17 20:50 | NUR ---
RN NOTES PT MOVED TO ROOM 313-2.
[2017-03-18] MEDS: IV NS 0.9% 1,000 ML IV PRN (06:09)
--- NOTE | 2017-03-18 06:55 | NUR ---
RN NOTES PT AWAKE, HOB ELEVATED, NO SOB, NO SIGNS OF DISTRESS AND DISCOMFORT NOTED. ON 2LPM O2 VIA NC WITH GOOD SATURATION. VITAL SIGNS STABLE, AFEBRILE. NO EPISODE OF NAUSEA AND VOMITING. NO COMPLAIN OF CHEST PAIN. ALL DUE MEDS GIVEN. KEPT CLEAN AND DRY. ALL NEEDS ATTENDED. NO SIGNIFICANT CHANGE IN CONDITION NOTED. ENDORSED TO MORNING RN FOR CONTINUITY OF CARE.
[2017-03-18 07:27] LABS: BASOPHILS # (AUTO) 0.1 /CMM (0.0-0.2); BASOPHILS % (AUTO) 1.5 % (0.0-2.0); EOSINOPHILS % (AUTO) 9.7 % (0.0-6.0); HEMATOCRIT 29 % (39-51); HEMOGLOBIN 10.2 g/dL (13.5-17.5); LYMPHOCYTES # (AUTO) 1.3 /CMM (0.8-4.8); LYMPHOCYTES % (AUTO) 12.7 % (20.0-44.0); MEAN CORPUSCULAR HEMOGLOBIN 33 PG (26.0-33.0); MEAN CORPUSCULAR HGB CONC 35 g/dl (31.0-36.0); MEAN CORPUSCULAR VOLUME 94 fL (80-96); MONOCYTES # (AUTO) 1.1 /CMM (0.1-1.30); NEUTROPHILS # (AUTO) 6.6 /CMM (1.8-8.9); NEUTROPHILS % (AUTO) 65.1 % (43.0-81.0); PLATELET COUNT (AUTO) 452 /CMM (150-450); RDW COEFFICIENT OF VARIATION 13.4 (11.5-15.0); RED BLOOD CELL COUNT(AUTO) 3.13 MIL/uL (4.5-6.0); WHITE BLOOD COUNT (AUTO) 10.1 K/uL (4.3-11.0)
--- NOTE | 2017-03-18 07:40 | NUR ---
MS/RN OPENING NOTE PATIENT RECEIVED IN BED IN STABLE CONDITION. ALERT AND ORIENTED TIMES 3. NO SIGNS OF ACUTE DISTRESS. NO COMPLAIN OF PAIN AND DISCOMFORT. ALL NEEDS ATTENDED TO. CALL LIGHT WITHIN REACH. WILL CONTINUE TO MONITOR TO ENSURE SAFETY.
[2017-03-18 08:00] VITALS: BP 129/88
[2017-03-18 08:14] LABS: CREATININE 1.5 mg/dL (0.6-1.3); POTASSIUM 4.6 mmol/L (3.5-5.1)
[2017-03-18] MEDS: ASPIRIN 81 MG TAB.CHEW PO SCH (08:55)
[2017-03-18] MEDS: MULTIVITAMINS,THERAGRAN 1 UDTAB TABLET PO SCH (08:55)
[2017-03-18] MEDS: PROSOURCE / PROSTAT (PYXIS) 30 ML UDC PO SCH ×2 (08:55→16:56)
[2017-03-18] MEDS: RIFAXIMIN 550 MG TABLET PO SCH ×2 (08:55→16:56)
[2017-03-18] MEDS: CARVEDILOL 3.125 MG TABLET PO SCH ×2 (08:56→22:32)
[2017-03-18] MEDS: PHENYTOIN SODIUM IV 50 MG/ML VIAL IV SCH ×2 (08:56→22:32)
[2017-03-18] MEDS: FOLIC ACID 1 MG TABLET PO SCH (08:56)
[2017-03-18] MEDS: PANTOPRAZOLE 40 MG TABLET.DR PO SCH (08:56)
[2017-03-18] MEDS: LACTOBACILLUS RHAMNOSUS GG 1 EACH CAP.SPRINK PO SCH ×2 (08:56→16:56)
[2017-03-18] MEDS: HEPARIN SODIUM, PORCINE 5000 UNITS/1 ML VIAL SQ SCH ×2 (09:10→22:34)
[2017-03-18] MEDS: HYDROGEL DRESSING 90 GM TUBE TP SCH (09:15)
[2017-03-18] MEDS: Z GUARD REMEDY 2 OZ OINT TP PRN (09:15)
--- NOTE | 2017-03-18 09:40 | NUR ---
WOUND CARE FOLLOW UP: PT SEEN FOR SACRAL/BUTTOCKS REGION. SKIN IS INTACT WITH SOME STAINING OF SKIN. RECOMMENDATIONS MADE FOR SKIN PROTECTION. DISCUSSED WITH NURSING STAFF. PT USING URINAL AT THIS TIME. PT ON FIRST STEP MATTRESS. ALL SKIN PROTECTION MEASURES IN PLACE. WILL SEE PRN. FELTON IN AGREEMENT WITH PLAN OF CARE. Addendum: 03/18/17 at 0941 by VIKY GARCIA WNDNU Amended: Links added.
--- NOTE | 2017-03-18 11:00 | NUR ---
MS/RN S/B Dr Crowe Seen by Dr Crowe - patient to be discharged to facility today, awaiting correctional casework specialist to obtain accepting facility.
--- NOTE | 2017-03-18 14:00 | NUR ---
MS/RN PT Seen by PT - patient able to transfer from bed to standing position with minimal assist and then to ambulate to nursing station with standby assist only.
[2017-03-18 16:00] VITALS: BP 127/78
--- NOTE | 2017-03-18 17:11 | NUR ---
MS/RN D/C IV fluids Order entered by Dr Crowe to discontinue IV hydration.
--- NOTE | 2017-03-18 18:15 | NUR ---
MS/RN End note All needs attended at this time, denies pain or discomfort. Call light within reach, will continue to monitor and endorse to night club manager.
--- NOTE | 2017-03-18 19:45 | NUR ---
RN OPENING NOTES RECEIVED REPORT FROM JAMAICAHIFT RNWILFRID. FOUND Pt AWAKE, RESTING IN BED. NO S/S OF ACUTE DISTRESS OR SOB NOTED. Pt IS A/OX2, VERBAL, ABLE TO MAKE NEEDS KNOWN. IS ABLE TO AMB WITH PT ON WALKER. IV ACCESS ON LFA #20G, SL & RFA #22G, SL. SAFETY MEASURES IN PLACE. BED LOW, LOCKED, HOB ELEVATED, SIDE RAILS UP, CALL LIGHT AND BEDSIDE TABLE WITHIN REACH. WILL CONTINUE TO MONITOR Pt THROUGHOUT THE NIGHT FOR SAFETY.
[2017-03-18 20:00] VITALS: BP 132/71
--- NOTE | 2017-03-19 06:35 | NUR ---
RN CLOSING NOTES NO SIGNIFICANT CHANGES IN Pt's CONDITION. Pt REMAINED STABLE THROUGHOUT THE NIGHT. NO S/S OF ACUTE DISTRESS OR SOB NOTED. ALL NEEDS MET AND ATTENDED TO. SAFETY MEASURES IN PLACE. WILL ENDORSE TO DAYSHIFT RN FOR Pt's YAS.
--- NOTE | 2017-03-19 07:20 | NUR ---
RN MS NOTES PATIENT ASLEEP BUT EASILY AROUSABLE, NO DISTRESS NOTED, BREATHING EVEN AND UNLABORED, NO SOB, PIV PATENT AND FLUSHES WELL, NEEDS ATTENDED AND MET, CALL LIGHT WITHIN REACH, BED LOW AND LOCKED, SIDERAILS X2 UP, WILL CONTINUE TO MONITOR.
[2017-03-19 08:00] VITALS: BP 123/82
[2017-03-19] MEDS: ASPIRIN 81 MG TAB.CHEW PO SCH (09:11)
[2017-03-19] MEDS: PHENYTOIN SODIUM IV 50 MG/ML VIAL IV SCH ×2 (09:12→20:47)
[2017-03-19] MEDS: FOLIC ACID 1 MG TABLET PO SCH (09:12)
[2017-03-19] MEDS: PROSOURCE / PROSTAT (PYXIS) 30 ML UDC PO SCH ×2 (09:12→17:06)
[2017-03-19] MEDS: CARVEDILOL 3.125 MG TABLET PO SCH ×2 (09:12→20:47)
[2017-03-19] MEDS: PANTOPRAZOLE 40 MG TABLET.DR PO SCH (09:12)
[2017-03-19] MEDS: RIFAXIMIN 550 MG TABLET PO SCH ×2 (09:12→17:05)
[2017-03-19] MEDS: LACTOBACILLUS RHAMNOSUS GG 1 EACH CAP.SPRINK PO SCH ×2 (09:13→17:05)
[2017-03-19] MEDS: MULTIVITAMINS,THERAGRAN 1 UDTAB TABLET PO SCH (09:17)
[2017-03-19] MEDS: HEPARIN SODIUM, PORCINE 5000 UNITS/1 ML VIAL SQ SCH ×2 (09:19→21:00)
[2017-03-19] MEDS ORDERED: FOLI1TAB16 PO (10:36)
[2017-03-19] MEDS ORDERED: LORA1TAB82 PO (10:36)
[2017-03-19] MEDS ORDERED: PHEN100C4 PO (10:36)
[2017-03-19] MEDS ORDERED: THIA100T74 PO (10:36)
[2017-03-19] MEDS ORDERED: RIFA550T PO (10:36)
[2017-03-19] MEDS ORDERED: CARV3.122 PO (10:36)
[2017-03-19] MEDS ORDERED: FAMO-131 PO (10:36)
[2017-03-19] MEDS ORDERED: ASPI81TA2 PO (10:36)
[2017-03-19 16:00] VITALS: BP 113/80
--- NOTE | 2017-03-19 17:58 | NUR ---
JONA SANTIAGO NOTES RECEIVED AN ORDER FOR US GUIDED PARACENTESIS, WILL BE DONE TOMORROW, PER US TECH, HOLD THE PATIENT'S ANTICOAGULANT MEDICATION PRIOR TO THE PROCEDURE. PATIENT AWARE AND CONSENT SIGNED.
--- NOTE | 2017-03-19 18:37 | NUR ---
RN MS NOTES PATIENT ALERT AND ORIENTED, NO DISTRESS NOTED, DENIES PAIN OR DISCOMFORT, NO SOB, WOUND TREATMENT DONE, ASSISTED WITH TURNING AND REPOSITIONING, PIV PATENT AND FLUSHES, NEEDS ATTENDED AND ANTICIPATED, CALL LIGHT WITHIN REACH, SAFETY MEASURES IN PLACED, WILL ENDORSE TO BANKING TEACHER FOR YAS.
--- NOTE | 2017-03-19 19:10 | NUR ---
RN NOTES RECEIVED PT AWAKE, HOB ELEVATED, NO SOB, NOT IN DISTRESS ON 2LPM O2 AND TOLERATED WELL. PT ALERT AND ORIENTED X2, DENIES ANY PAIN AND DISCOMFORT AT THIS TIME. IV ACCESS ON LEFT AND RIGHT FOREARM PATENT AND INTACT, NO SIGNS OF INFILTRATE NOTED. KEPT COMFORTABLE AND ATTENDED. KEPT BED IN THE LOWEST POSITION, LOCKED, SIDE RAILS X3 UP WITH CALL LIGHT WITHIN REACH. WILL CONTINUE TO MONITOR PT.
[2017-03-19 20:00] VITALS: BP 125/72
--- NOTE | 2017-03-20 07:25 | NUR ---
RN NOTES PT AWAKE, HOB ELEVATED, NO SOB, NO SIGNS OF DISTRESS AND DISCOMFORT NOTED. ON 2LPM O2 VIA NC WITH GOOD SATURATION. VITAL SIGNS STABLE, AFEBRILE. NO EPISODE OF NAUSEA AND VOMITING. NO COMPLAIN OF CHEST PAIN. ALL DUE MEDS GIVEN. KEPT CLEAN AND DRY. FOR US GUIDED PARACENTESIS TODAY, CONSENT GIVEN BY THE PT. FOR D/C HOME TODAY, MRSA SURVEILLANCE SPECIMEN OF BOTH NARES TAKEN AND SENT TO LAB. PICTURES OF SKIN CONDITION TAKEN AND FILED IN THE CHART. PT FOR STAIR TRAINING BEFORE D/C. ALL NEEDS ATTENDED. NO SIGNIFICANT CHANGE IN CONDITION NOTED. ENDORSED TO MORNING RN FOR CONTINUITY OF CARE.
[2017-03-20 08:00] VITALS: BP_SYST 109; BP_SYST 123; BP_DIAS 45; BP_DIAS 68
[2017-03-20] MEDS: HEPARIN SODIUM, PORCINE 5000 UNITS/1 ML VIAL SQ SCH (09:00)
[2017-03-20] MEDS: PANTOPRAZOLE 40 MG TABLET.DR PO SCH (09:16)
[2017-03-20] MEDS: LACTOBACILLUS RHAMNOSUS GG 1 EACH CAP.SPRINK PO SCH (09:16)
[2017-03-20] MEDS: ASPIRIN 81 MG TAB.CHEW PO SCH (09:16)
[2017-03-20] MEDS: FOLIC ACID 1 MG TABLET PO SCH (09:16)
[2017-03-20] MEDS: MULTIVITAMINS,THERAGRAN 1 UDTAB TABLET PO SCH (09:16)
[2017-03-20] MEDS: RIFAXIMIN 550 MG TABLET PO SCH (09:16)
[2017-03-20] MEDS: PHENYTOIN SODIUM IV 50 MG/ML VIAL IV SCH (09:20)
[2017-03-20] MEDS: CARVEDILOL 3.125 MG TABLET PO SCH (09:20)
[2017-03-20] MEDS: PROSOURCE / PROSTAT (PYXIS) 30 ML UDC PO SCH (09:20)
--- NOTE | 2017-03-20 14:43 | NUR ---
RN MS NOTES PATIENT COMPLETED PARACENTESIS WITH 5L OUTPUT, PATIENT IS ALERT AND ORIENTED, NO DISTRESS NOTED, NO SOB, DENIES PAIN OR DISCOMFORT AT THIS TIME, CALL LIGHT WITHIN REACH, SAFETY MEASURES IN PLACED, WILL CONTINUE TO MONITOR.
--- NOTE | 2017-03-20 15:17 | NUR ---
BRICK MAKER NOTE PATIENT ALERT AND ORIENTED, AT BEDSIDE, BOTH RECEIVED DISCHARGE INSTRUCTIONS AND VERBALIZED UNDERSTANDING, EXPLAINED MEDICATIONS ADMINISTRATIONS AND SIDE EFFECTS, PIV REMOVED, BELONGINGS RECONCILIATION DONE, NO BELONGINGS, ALL DISCHARGE PAPERWORKS SIGNED, SKIN ASSESSMENT COMPLETED, NO CHANGES, PHOTO WAS TAKEN THIS AM, NEEDS ATTENDED AND MET, ACCOMPANIED BY WIF VIA PRIVATE CAR.
[2017-03-20 15:28] VITALS: BP 105/73
--- NOTE | 2017-03-20 15:29 | NUR ---
SAND SYSTEM OPERATOR PATIENT LEFT THE FACILITY VIA WHEELCHAIR, ACCOMPANIED BY , VIA PRIVATE CAR. NO DISTRESS NOTED.
== END 2017-03-20 15:30 | disposition home health service (06) | DRG 720 ==
LOC: ER 12:29 → TELE 15:16 → ICU 02-22 07:15 → TELE 03-09 12:09 → MED 03-11 09:04
PROVIDERS: ADMIT Nurse Practitioner Acute Care; ATTEND Nurse Practitioner Acute Care
PROC: 02HV33Z Insertion of Infusion Device into Superior Vena Cava, Percutaneous Approach (ICD-10-PCS; principal; 2017-02-22)
PROC: 0BH17EZ Insertion of Endotracheal Airway into Trachea, Via Natural or Artificial Opening (ICD-10-PCS; principal; 2017-02-22)
PROC: 5A1955Z Respiratory Ventilation, Greater than 96 Consecutive Hours (ICD-10-PCS; principal; 2017-02-22)
PROC: B548ZZA Ultrasonography of Superior Vena Cava, Guidance (ICD-10-PCS; principal; 2017-02-22)
PROC: 0W9G3ZZ Drainage of Peritoneal Cavity, Percutaneous Approach (ICD-10-PCS; 2017-03-05)
DX: A41.9 Sepsis, unspecified organism (principal); J96.01 Acute respiratory failure with hypoxia; I46.9 Cardiac arrest, cause unspecified; I21.4 Non-ST elevation (NSTEMI) myocardial infarction; R65.21 Severe sepsis with septic shock; J69.0 Pneumonitis due to inhalation of food and vomit; G92 Toxic encephalopathy; F10.231 Alcohol dependence with withdrawal delirium; I50.31 Acute diastolic (congestive) heart failure; K70.11 Alcoholic hepatitis with ascites; K70.31 Alcoholic cirrhosis of liver with ascites; I21.3 ST elevation (STEMI) myocardial infarction of unspecified site; N17.9 Acute kidney failure, unspecified; E87.2 Acidosis; I11.0 Hypertensive heart disease with heart failure; D68.59 Other primary thrombophilia; E44.0 Moderate protein-calorie malnutrition; B37.49 Other urogenital candidiasis; E66.01 Morbid (severe) obesity due to excess calories; E83.42 Hypomagnesemia; E87.0 Hyperosmolality and hypernatremia; E87.6 Hypokalemia; F17.210 Nicotine dependence, cigarettes, uncomplicated; G40.909 Epilepsy, unspecified, not intractable, without status epilepticus; K72.90 Hepatic failure, unspecified without coma; I42.9 Cardiomyopathy, unspecified; I42.6 Alcoholic cardiomyopathy; I25.5 Ischemic cardiomyopathy; K76.6 Portal hypertension
CPT/HCPCS: 31720; 36415; 36569; 36600; 70450-TC; 71010-TC; 74000-TC; 76705-TC; 76942-TC; 80048-TC; 80053-TC; 80061-TC; 80076-TC; 80185-TC; 80202-TC; 80305; 82140-TC; 82746; 82803-TC; 82962-TC; 83605-TC; 83690-TC; 83735-TC; 84100-TC; 84443-TC; 84478-TC; 84484-TC; 85025-TC; 85378-TC; 85610-TC; 85730-TC; 87040-TC; 87070-TC; 87081-TC; 87086-TC; 89051-TC; 90715; 92526; 92611-TC; 93307-TC; 94003-TC; 94762-TC; 94799-TC; 97110-TC; 97112-TC; 97116-TC; 97530-TC; A4216; A4606; A6248; A6402; A6403; C1751; G0480; J0171; J0360; J0610; J0696; J1165; J1644; J1650; J1940; J1953; J1956; J2060; J2248; J2250; J2370; J2543; J3010; J3370; J3411; J3475; J3480; J3490; J7030; J7040; J7050; J7060; P9047; Z7610

== ENCOUNTER 2017-04-23 14:29 | Emergency (ER) | payer MEDICAID ==
[~2017-04-23] VITALS: Ht 167.6 cm; Wt 86.6 kg
[~2017-04-23 14:29] MED LIST: ASPI81TA2 PO; CARV3.122 PO; FAMO-131 PO; FOLI1TAB16 PO; LORA1TAB82 PO; PHEN100C4 PO; RIFA550T PO; THIA100T74 PO
--- NOTE | 2017-04-23 14:45 | NUR ---
BIBSELF TO ED DT ABDOMINAL DISTENTION AND DISCOMFORT X 2 WKS, WITH HX OF CIRRHOSIS. NAD NOTED, VSS, WAITING FOR MD EVAL.
[2017-04-23 15:48] LABS: BASOPHILS % (AUTO) 0.5 % (0.0-2.0); EOSINOPHILS # (AUTO) 0.2 /CMM (0.0-0.7); EOSINOPHILS % (AUTO) 2.2 % (0.0-6.0); HEMATOCRIT 32 % (39-51); HEMOGLOBIN 10.7 g/dL (13.5-17.5); LYMPHOCYTES % (AUTO) 23.3 % (20.0-44.0); MEAN CORPUSCULAR HEMOGLOBIN 32 PG (26.0-33.0); MEAN CORPUSCULAR HGB CONC 34 g/dl (31.0-36.0); MEAN CORPUSCULAR VOLUME 93 fL (80-96); MONOCYTES # (AUTO) 0.7 /CMM (0.1-1.30); MONOCYTES % (AUTO) 8.1 % (2.0-12.0); NEUTROPHILS # (AUTO) 5.8 /CMM (1.8-8.9); NEUTROPHILS % (AUTO) 65.9 % (43.0-81.0); PLATELET COUNT (AUTO) 331 /CMM (150-450); RDW COEFFICIENT OF VARIATION 12.7 (11.5-15.0); RED BLOOD CELL COUNT(AUTO) 3.39 MIL/uL (4.5-6.0); WHITE BLOOD COUNT (AUTO) 8.7 K/uL (4.3-11.0)
[2017-04-23 16:02] LABS: INR 1.08 (0.87-1.13); PROTHROMBIN TIME 11.2 SECS (9.5-12.7)
[2017-04-23 17:20] VITALS: BP 112/70
== END 2017-04-23 17:20 | disposition home or self-care (01) ==
LOC: ER 14:30
DX: R18.8 Other ascites (principal); K42.9 Umbilical hernia without obstruction or gangrene; M79.652 Pain in left thigh; I10 Essential (primary) hypertension; J96.00 Acute respiratory failure, unspecified whether with hypoxia or hypercapnia; Z79.82 Long term (current) use of aspirin; Z86.74 Personal history of sudden cardiac arrest
CPT/HCPCS: 36415; 49083; 85025; 85730; 93971; 99285; A4606; Z7610; 76942-TC

== ENCOUNTER 2019-06-02 10:55 | Emergency (ER) | payer MEDICAID ==
[~2019-06-02] VITALS: Ht 172.7 cm; Wt 116.6 kg
[~2019-06-02 10:55] MED LIST changes: +ASPI-1169 PO; -ASPI81TA2 PO; +LORA-259 PO; -LORA1TAB82 PO
--- NOTE | 2019-06-02 11:05 | NUR ---
PROFESSOR OF PRACTICE AT BEDSIDE FOR BLOOD DRAW
--- NOTE | 2019-06-02 11:07 | NUR ---
PT BIBWIFE, FROM HOME, C/O ABD PRESSURE, Hx LIVER CIRRHOSIS. DENIES PAIN, -NVD. PT AAOX4, VSS, BREATHING EVEN AND UNLABORED ON ROOM AIR W/ NAD, -SOB. PT CONNECTED TO THE MONITOR AND POX
[2019-06-02 11:33] LABS: BASOPHILS % (AUTO) 0.7 % (0.0-2.0); EOSINOPHILS % (AUTO) 0.9 % (0.0-6.0); HEMATOCRIT 39 % (39-51); HEMOGLOBIN 13.2 g/dL (13.5-17.5); LYMPHOCYTES # (AUTO) 0.8 /CMM (0.8-4.8); LYMPHOCYTES % (AUTO) 16.8 % (20.0-44.0); MEAN CORPUSCULAR HGB CONC 34 g/dl (31.0-36.0); MEAN CORPUSCULAR VOLUME 103 fL (80-96); MONOCYTES # (AUTO) 0.6 /CMM (0.1-1.30); MONOCYTES % (AUTO) 11.3 % (2.0-12.0); NEUTROPHILS # (AUTO) 3.5 /CMM (1.8-8.9); NEUTROPHILS % (AUTO) 70.3 % (43.0-81.0); PLATELET COUNT (AUTO) 121 /CMM (150-450); RED BLOOD CELL COUNT(AUTO) 3.81 MIL/uL (4.5-6.0)
--- NOTE | 2019-06-02 11:36 | NUR ---
PT TAKEN BACK FROM CT
[2019-06-02 11:42] LABS: CALCIUM, SERUM 9.3 mg/dL (8.5-10.1); CARBON DIOXIDE 26 mmol/L (21-32); CHLORIDE 100 mmol/L (98-107); CREATININE 0.8 mg/dL (0.6-1.3); GLUCOSE 102 mg/dL (74-106); POTASSIUM 3.9 mmol/L (3.5-5.1); SODIUM SERUM 137 mmol/L (136-145); UREA NITROGEN, BLOOD 8 mg/dL (7-18)
[2019-06-02 11:47] LABS: ALANINE AMINOTRANSFERASE 40 U/L (12-78); ALBUMIN 3.4 g/dL (3.4-5.0); ALKALINE PHOSPHATASE 239 U/L (46-116); ASPARTATE AMINOTRANSFERASE 144 U/L (15-37); BILIRUBIN,DIRECT 1.8 mg/dL (0.0-0.2); BILIRUBIN,TOTAL 2.6 mg/dL (0.2-1.0); LIPASE 446 U/L (73-393); TOTAL PROTEIN, SERUM 8.9 g/dL (6.4-8.2)
--- NOTE | 2019-06-02 11:49 | NUR ---
molding technician on site and informed regarding MD ordered for AYESHA paracentesis and made aware.
--- NOTE | 2019-06-02 12:36 | NUR ---
CONSENT OBTAINED FOR ULTRASOUND PARACENTESIS. AT BEDSIDE
--- NOTE | 2019-06-02 12:55 | NUR ---
ULTRASOUND GUIDED PARACENTESIS AT BEDSIDE
--- NOTE | 2019-06-02 13:20 | NUR ---
ULTRASOUND GUIDED PARACENTESISS IN PROGRESS AT BEDSIDE
[2019-06-02] MEDS ORDERED: LORAZEPAM 1 MG TABLET PO ONE (13:30)
--- NOTE | 2019-06-02 13:38 | NUR ---
8 L OF FLUID DRAINED
[2019-06-02] MEDS ORDERED: LORAZEPAM 1 MG TABLET ONE (13:39)
[2019-06-02 14:06] VITALS: BP 138/70
--- NOTE | 2019-06-02 14:06 | NUR ---
Patient discharged to home in stable condition. Written and verbal after care instructions given. Patient verbalizes understanding of instruction.
== END 2019-06-02 14:07 | disposition home or self-care (01) ==
LOC: ER 10:55
DX: R18.8 Other ascites (principal); F10.10 Alcohol abuse, uncomplicated; K74.60 Unspecified cirrhosis of liver; I10 Essential (primary) hypertension; Z79.899 Other long term (current) drug therapy; Z79.82 Long term (current) use of aspirin; Y90.9 Presence of alcohol in blood, level not specified
CPT/HCPCS: 36415; 49083; 76942-TC; 80048-TC; 80076-TC; 83690-TC; 84484-TC; 85025-TC; 85730-TC

== ENCOUNTER 2019-06-18 09:33 | Emergency (ER) | payer MEDICAID ==
[~2019-06-18] VITALS: Ht 170.2 cm; Wt 107.5 kg
--- NOTE | 2019-06-18 09:50 | NUR ---
"Abdominal Pain/Nausea/vomiting this am dark red-clots." +Abdominal distention. Patient a/ox4, breathing even and unlabored, no sob noted, needs attended. Changed into gown, attached to the site monitor.
[2019-06-18] MEDS ORDERED: ALBUMIN 25% 12.5 GM/50 ML BOTTLE IV ONE (10:00)
[2019-06-18] MEDS ORDERED: LORAZEPAM INJ 2 MG/ML VIAL IV ONE (10:00)
[2019-06-18] MEDS ORDERED: OCTREOTIDE 50 MCG/ML AMPUL SQ ONE (10:00)
[2019-06-18] MEDS ORDERED: PANTOPRAZOLE 40 MG VIAL IV ONE (10:00)
[2019-06-18] MEDS ORDERED: OCTREOTIDE 100 MCG/ML VIAL ONE (10:03)
[2019-06-18] MEDS ORDERED: PANTOPRAZOLE 40 MG VIAL ONE (10:03)
[2019-06-18 10:04] LABS: BASOPHILS # (AUTO) 0.1 /CMM (0.0-0.2); BASOPHILS % (AUTO) 1.3 % (0.0-2.0); EOSINOPHILS % (AUTO) 0.3 % (0.0-6.0); HEMATOCRIT 37 % (39-51); HEMOGLOBIN 12.3 g/dL (13.5-17.5); LYMPHOCYTES # (AUTO) 1.1 /CMM (0.8-4.8); LYMPHOCYTES % (AUTO) 14.6 % (20.0-44.0); MEAN CORPUSCULAR HGB CONC 33 g/dl (31.0-36.0); MEAN CORPUSCULAR VOLUME 105 fL (80-96); MONOCYTES # (AUTO) 0.7 /CMM (0.1-1.30); MONOCYTES % (AUTO) 9.4 % (2.0-12.0); NEUTROPHILS # (AUTO) 5.6 /CMM (1.8-8.9); NEUTROPHILS % (AUTO) 74.4 % (43.0-81.0); PLATELET COUNT (AUTO) 147 /CMM (150-450); RED BLOOD CELL COUNT(AUTO) 3.56 MIL/uL (4.5-6.0); WHITE BLOOD COUNT (AUTO) 7.5 K/uL (4.3-11.0)
[2019-06-18] MEDS ORDERED: LORAZEPAM INJ 2 MG/ML VIAL ONE (10:05)
[2019-06-18] MEDS ORDERED: PHEN100C4 PO (10:07)
[2019-06-18 10:23] LABS: BILIRUBIN,DIRECT 1.4 mg/dL (0.0-0.2); BILIRUBIN,TOTAL 2.2 mg/dL (0.2-1.0); CREATININE 1.1 mg/dL (0.6-1.3); POTASSIUM 4.6 mmol/L (3.5-5.1); TOTAL PROTEIN, SERUM 8.4 g/dL (6.4-8.2)
--- NOTE | 2019-06-18 12:05 | NUR ---
PARACENTESIS COMPLETED, 10 LITER OUT.
--- NOTE | 2019-06-18 13:30 | NUR ---
Ambulatory with a steady gait. IV removed. Catheter intact and site benign. Pressure and 4x4 applied to site. No bleeding noted. Patient discharged to home in stable condition. Written and verbal after care instructions given. Patient verbalizes understanding of instruction.
[2019-06-18 13:31] VITALS: BP 108/69
== END 2019-06-18 13:31 | disposition home or self-care (01) ==
LOC: ER 09:38
DX: K70.31 Alcoholic cirrhosis of liver with ascites (principal); K29.21 Alcoholic gastritis with bleeding; F10.10 Alcohol abuse, uncomplicated; D53.9 Nutritional anemia, unspecified; D69.6 Thrombocytopenia, unspecified; E88.09 Other disorders of plasma-protein metabolism, not elsewhere classified; R74.8 Abnormal levels of other serum enzymes; I10 Essential (primary) hypertension; Z79.899 Other long term (current) drug therapy; Z79.82 Long term (current) use of aspirin; Y90.9 Presence of alcohol in blood, level not specified
CPT/HCPCS: 36415; 49083; 71045; 80048; 80076; 83690; 85025; 85730; 96365; 96372; 96375; 99285; C9113; J2060; J2354 ×2; J7030; P9047; 76942-TC